=== PATIENT | male | born 1980 | race Caucasian/White ===

== ENCOUNTER 2016-05-04 07:24 | Outpatient (RCR) | payer BC, OTHER ==
[~2016-05-04 07:24] MED LIST: ASPI-808 PO; CEPH-507 PO
== END 2016-05-15 | disposition home or self-care (01) ==
LOC: WOUNDCARE 07:24
PROVIDERS: ATTEND Surgery
DX: L97.222 Non-pressure chronic ulcer of left calf with fat layer exposed (principal); I70.242 Atherosclerosis of native arteries of left leg with ulceration of calf; I87.032 Postthrombotic syndrome with ulcer and inflammation of left lower extremity; D68.51 Activated protein C resistance; L92.1 Necrobiosis lipoidica, not elsewhere classified; I87.2 Venous insufficiency (chronic) (peripheral); E11.622 Type 2 diabetes mellitus with other skin ulcer
CPT/HCPCS: 11042; 87070; 87075; 87205; 97597

== ENCOUNTER 2016-08-05 07:19 | Emergency (ER) | payer BC, OTHER ==
[~2016-08-05] VITALS: Ht 182.9 cm; Wt 186.9 kg
[2016-08-05] MEDS ORDERED: METF500T8 (07:31)
[2016-08-05] MEDS ORDERED: TACR100O2 (07:31)
[2016-08-05] MEDS ORDERED: LISI-556 (07:31)
--- NOTE | 2016-08-05 07:38 | ED General ---
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 DANIELS, ALSO HAS BEEN TO ISABELL JORDAN AT [facility]: DR. PLATT. Allergies and Home Medications Allergies Coded Allergies: Penicillins (Verified Allergy, Unknown, 02/13/11) Home Medications Aspirin 325 Mg Tablet, 325 MG PO DAILY, (Reported) Lisinopril 5 Mg Tablet, #30 (Reported) Meclizine HCl 25 Mg Tablet, 25-50 MG PO Q6H, #30 Prescribed by: JUDI CARDOZA on 08/05/16 1025 Metformin HCl 500 Mg Tab.er.24h, #120 (Reported) Ondansetron 4 Mg Tab.rapdis, 4 MG PO Q4H, #10 Prescribed by: JUDI CARDOZA on 08/05/16 1025 Tacrolimus 100 Gm Oint...g., #30 (Reported) Constitutional: see HPI, diaphoresis, dizziness EENTM: no symptoms reported Respiratory: see HPI, short of breath Cardiovascular: No chest pain, edema, No palpitations, No syncope, No vascular heart diseas Gastrointestinal: see HPI, No abdominal pain, nausea, No vomiting Genitourinary: no symptoms reported Musculoskeletal: see HPI Skin: see HPI Psychiatric/Neurological: See HPI, Headache, Denies Numbness, Denies Paresthesia Hematologic/Lymphatic: See HPI Immunological/Allergic: no symptoms reported Past Lmtnsmz-Tgnyds-Vcbeiy Hx Patient Social History Alcohol Use: Rarely Uses Recreational Drug Use: No Smoking Status: Never a Smoker Recent Foreign Travel: No Contact w/Someone Who Travel: No Recent Infectious Disease Expo: No Recent Hopitalizations: No Surgeries HX Surgeries: Yes (WISDOM TEETH REMOVED) Respiratory Hx Respiratory Disorders: No Cardiovascular Hx Cardiac Disorders: Yes Cardiac Disorders: Chronic Edema/Swelling, Deep Vein Thrombosis, High Cholesterol, Hypertension Neurological Hx Neurological Disorders: No Reproductive System Hx Reproductive Disorders: No Genitourinary Hx Genitourinary Disorders: No Gastrointestinal Hx Gastrointestinal Disorders: No Musculoskeletal Hx Musculoskeletal Disorders: No Endocrine Hx Endocrine Disorders: Yes (MORBID OBESITY) Endocrine Disorders: Diabetes, Non-Insulin dep HEENT HX ENT Disorders: Yes (FEVER BLISTERS, WISDOM TEETH REMOVED) Cancer Hx Cancer: No Psychosocial Hx Psychiatric Problems: Yes Behavioral Health Disorders: Anxiety Integumentary HX Skin/Integumentary Disorder: Yes (WOUNDS ON LEFT LOWER LEG-GOES TO WOUND CARE; FEVER BLISTERS) Blood Transfusions Hx Blood Disorders: Yes (FACTOR 5 LEIDEN--HX OF DVT LEFT LEG 2010) Physical Exam Vital Signs Vital Sign - Last 12Hours 08/05/16 07:20 Temp 96.5 Pulse 89 Resp 16 B/P (MAP) 149/76 Pulse Ox 96 Capillary Refill : Less Than 3 Seconds General Appearance: No Apparent Distress, Obese (MORBIDLY) HEENT: PERRL/EOMI Neck: Full Range of Motion, Normal Inspection, Non Tender, Supple, No Carotid Bruit, No JVD Respiratory: Normal Breath Sounds, No Accessory Muscle Use, No Respiratory Distress Cardiovascular: Regular Rate, Rhythm (WITH MULTIPLE PVC'S AND RUNS OF BIGEMINY) , No JVD, No Murmur Gastrointestinal: Non Tender, Soft Extremity: Normal Capillary Refill, Non Tender, Pedal Edema (1+ ON LEFT. LEFT LOWER LEG WITH DRESSINGS IN PLACE WHICH ARE CLEAN AND DRY) Neurologic/Psychiatric: Alert, Oriented x3, No Motor/Sensory Deficits, Normal Mood/Affect, multicraft operator II-XII Norm as Tested Skin: Normal Color, Warm/Dry, Other (LEFT LOWER LEG WOUNDS WITH DRESSING IN PLACE) Progress/Results/Core Measures Results/Orders Lab Results Laboratory Tests Test 08/05/16 07:33 08/05/16 07:35 08/05/16 08:27 Range/Units Glucometer 100 70-110 MG/DL White Blood Count 11.6 H 4.3-11.0 10^3/uL Red Blood Count 4.48 4.35-5.85 10^6/uL Hemoglobin 13.4 13.3-17.7 G/DL Hematocrit 42 40-54 % Mean Corpuscular Volume 93 80-99 FL Mean Corpuscular Hemoglobin 30 25-34 PG Mean Corpuscular Hemoglobin Concent 32 32-36 G/DL Red Cell Distribution Width 13.9 10.0-14.5 % Platelet Count 262 130-400 10^3/uL Mean Platelet Volume 11.0 H 7.4-10.4 FL Neutrophils (%) (Auto) 67 42-75 % Lymphocytes (%) (Auto) 16 12-44 % Monocytes (%) (Auto) 10 0-12 % Eosinophils (%) (Auto) 7 0-10 % Basophils (%) (Auto) 0 0-10 % Neutrophils # (Auto) 7.7 1.8-7.8 X 10^3 Lymphocytes # (Auto) 1.9 1.0-4.0 X 10^3 Monocytes # (Auto) 1.2 H 0.0-1.0 X 10^3 Eosinophils # (Auto) 0.8 H 0.0-0.3 10^3/uL Basophils # (Auto) 0.0 0.0-0.1 10^3/uL Prothrombin Time 12.4 12.2-14.7 SEC INR Comment 1.0 0.8-1.4 Activated Partial Thromboplast Time 26 24-35 SEC Sodium Level 141 135-145 MMOL/L Potassium Level 4.2 3.6-5.0 MMOL/L Chloride Level 109 H 98-107 MMOL/L Carbon Dioxide Level 23 21-32 MMOL/L Anion Gap 9 5-14 MMOL/L Blood Urea Nitrogen 10 7-18 MG/DL Creatinine 0.85 0.60-1.30 MG/DL Estimat Glomerular Filtration Rate > 60 BUN/Creatinine Ratio 12 Glucose Level 106 H 70-105 MG/DL Calcium Level 9.3 8.5-10.1 MG/DL Magnesium Level 1.6 L 1.8-2.4 MG/DL Total Bilirubin 0.4 0.1-1.0 MG/DL Aspartate Amino Transf (AST/SGOT) 17 5-34 U/L Alanine Aminotransferase (ALT/SGPT) 25 0-55 U/L Alkaline Phosphatase 52 40-136 U/L Total Creatine Kinase 63 30-200 U/L Creatine Kinase MB 1.1 <6.6 NG/ML Troponin I < 0.30 <0.30 NG/ML B-Type Natriuretic Peptide 18.3 <100.0 PG/ML Total Protein 6.7 6.4-8.2 G/DL Albumin 3.5 3.2-4.5 G/DL Lipase 38 8-78 U/L TSH [place] Testing 2.78 0.35-4.94 UIU/ML Urine Color YELLOW Urine Clarity CLEAR Urine pH 5 5-9 Urine Specific [place] 1.025 H 1.016-1.022 Urine Protein 1+ H NEGATIVE Urine Glucose (UA) NEGATIVE NEGATIVE Urine Ketones NEGATIVE NEGATIVE Urine Nitrite NEGATIVE NEGATIVE Urine Bilirubin 1+ H NEGATIVE Urine Urobilinogen 1 NORMAL MG/DL Urine Leukocyte Esterase 1+ H NEGATIVE Urine RBC (Auto) NEGATIVE NEGATIVE Urine RBC NONE /HPF Urine WBC NONE /HPF Urine Squamous Epithelial Cells RARE /HPF Urine Crystals PRESENT H /LPF Urine Calcium Oxalate Crystals MODERATE H /LPF Urine Bacteria NEGATIVE /HPF Urine Casts NONE /LPF Urine Mucus SMALL H /LPF Urine Culture Indicated NO My Orders Orders - JUDI CARDOZA DO Accucheck Stat ONCE (08/05/16 07:32) Saline Lock/Iv-Start (08/05/16 07:32) Ekg Tracing (08/05/16 07:32) Monitor-Rhythm Ecg Trace Only (08/05/16 07:32) Ct Head Wo (08/05/16 07:32) BNP (08/05/16 07:32) Cbc With Automated Diff (08/05/16 07:32) Comprehensive Metabolic Panel (08/05/16 07:32) Creatine Kinase (08/05/16 07:32) Creatine Kinase Mb (08/05/16 07:32) Lipase (08/05/16 07:32) Magnesium (08/05/16 07:32) Protime With Inr (08/05/16 07:32) Partial Thromboplastin Time (08/05/16 07:32) Thyroid Analyzer (08/05/16 07:32) Troponin I (08/05/16 07:32) Ua Culture If Indicated (08/05/16 07:32) Chest 1 View, Ap/Pa Only (08/05/16 07:32) Ondansetron Injection (Zofran Injectio (08/05/16 07:45) Ct Angio Chest W (08/05/16 08:23) Iohexol Injection (Omnipaque 350 Mg/Ml 1 (08/05/16 08:30) Ns (Ivpb) (Sodium Chloride 0.9% Ivpb Bag (08/05/16 08:30) Magnesium Oxide Tablet (Mag Ox Tablet) (08/05/16 09:45) Meclizine Tablet (Antivert Tablet) (08/05/16 09:45) Orthostatic Vital Signs (08/05/16 10:22) Medications Given in ED Current Medications Medications Dose Ordered Sig/Vicki Route Start Time Stop Time Status Last Admin Dose Admin Iohexol 125 ml ONCE ONCE IV 08/05/16 08:30 08/05/16 08:47 DC 08/05/16 08:45 125 ML Magnesium Oxide 400 mg ONCE ONCE PO 08/05/16 09:45 08/05/16 09:46 DC 08/05/16 10:20 400 MG Meclizine HCl 50 mg ONCE ONCE PO 08/05/16 09:45 08/05/16 09:46 DC 08/05/16 10:05 50 MG Ondansetron HCl 4 mg ONCE ONCE IVP 08/05/16 07:45 08/05/16 07:46 DC 08/05/16 07:42 4 MG Sodium Chloride 80 ml ONCE ONCE IV 08/05/16 08:30 08/05/16 08:47 DC 08/05/16 08:46 80 ML Vital Signs/I&O Vital Sign - Last 12Hours 08/05/16 07:20 Temp 96.5 Pulse 89 Resp 16 B/P (MAP) 149/76 Pulse Ox 96 Blood Pressure Mean: 100 Progress Note : Progress Note UNEVENTFUL ER STAY ORTHOSTATICS PRIOR TO DISMISSAL MILDLY ABNORMAL , BUT PT ASYMPTOMATIC AND ABLE TO AMBULATE AROUND ER WITHOUT ANY DIZZINESS OR DIFFICULTY ECG Initial ECG Impression Time: 07:29 Initial ECG Rate: 92 Initial ECG Rhythm: Normal Sinus Initial ECG Impression: Normal Initial ECG Comparisson: No Previous ECG Available Diagnostic Imaging Comments CXR--NO ACUTE PROCESS, PER RADIOLOGIST REPORT @ 0915 CT CHEST ANGIOGRAM--NORMAL. NO P.E. PER RADIOLOGIST REPORT @ 0942 Reviewed: Reviewed by Me Departure Communication Progress Notes Impression Impression: Primary Impression: Vertigo Additional Impressions: Hypomagnesemia NIDDM HTN (hypertension) Disposition: 01 HOME, SELF-CARE Condition: Improved Departure-Patient Inst. Referrals: JUDI DANIELS MD (PCP/Family) Primary Care Physician [facility] Patient Instructions: Vertigo (a Type of Dizziness) (DC) Add. Discharge Instructions: LOTS OF CLEAR LIQUIDS SLOW POSITION CHANGES FOLLOW UP WITH YOUR DR THIS WEEK FOR FURTHER CARE All discharge instructions reviewed with patient and/or family. Voiced understanding. Scripts Ondansetron (Zofran Odt) 4 Mg Tab.rapdis 4 MG PO Q4H for Nausea/Vomiting, #10 TAB Prov: JUDI CARDOZA DO 08/05/16 Meclizine HCl (Meclizine HCl) 25 Mg Tablet 25-50 MG PO Q6H for Dizziness, #30 TAB Prov: JUDI CARDOZA DO 08/05/16 JUDI CARDOZA DO Aug 05, 2016 07:38
[2016-08-05 07:42] LABS: BASOPHILS % (AUTO) 0 % (0-10); EOSINOPHILS # (AUTO) 0.8 10^3/uL (0.0-0.3); EOSINOPHILS % (AUTO) 7 % (0-10); LYMPHOCYTES # (AUTO) 1.9 X 10^3 (1.0-4.0); LYMPHOCYTES % (AUTO) 16 % (12-44); MEAN CORPUSCULAR HEMOGLOBIN 30 PG (25-34); MEAN CORPUSCULAR HGB CONC 32 G/DL (32-36); MEAN CORPUSCULAR VOLUME 93 FL (80-99); MONOCYTES # (AUTO) 1.2 X 10^3 (0.0-1.0); MONOCYTES % (AUTO) 10 % (0-12); NEUTROPHILS # (AUTO) 7.7 X 10^3 (1.8-7.8); NEUTROPHILS % (AUTO) 67 % (42-75); PLATELET COUNT 262 10^3/uL (130-400); RED BLOOD COUNT 4.48 10^6/uL (4.35-5.85); RED CELL DISTRIBUTION WIDTH 13.9 % (10.0-14.5); WHITE BLOOD COUNT 11.6 10^3/uL (4.3-11.0)
[2016-08-05] MEDS ORDERED: ONDANSETRON 4 MG/2 ML (SDV) Z0FRAN IVP ONE (07:45)
[2016-08-05 07:52] LABS: PROTHROMBIN TIME PATIENT 12.4 SEC (12.2-14.7)
[2016-08-05 08:02] LABS: SODIUM 141 MMOL/L (135-145)
[2016-08-05 08:03] LABS: ALANINE AMINOTRANSFERASE 25 U/L (0-55); ALBUMIN 3.5 G/DL (3.2-4.5); ANION GAP 9 MMOL/L (5-14); ASPARTATE AMINO TRANSFERASE 17 U/L (5-34); BILIRUBIN,TOTAL 0.4 MG/DL (0.1-1.0); BLOOD UREA NITROGEN 10 MG/DL (7-18); BUN/CREATININE RATIO 12; CALCIUM 9.3 MG/DL (8.5-10.1); CARBON DIOXIDE 23 MMOL/L (21-32); CHLORIDE 109 MMOL/L (98-107); CREATINE KINASE 63 U/L (30-200); CREATININE SERUM 0.85 MG/DL (0.60-1.30); GFR ESTIMATED > 60; GLUCOSE 106 MG/DL (70-105); LIPASE 38 U/L (8-78); MAGNESIUM 1.6 MG/DL (1.8-2.4); POTASSIUM 4.2 MMOL/L (3.6-5.0); TOTAL PROTEIN 6.7 G/DL (6.4-8.2)
[2016-08-05 08:24] LABS: TROPONIN I < 0.30 NG/ML (<0.30)
[2016-08-05] MEDS ORDERED: NS 100 ML (IVPB) BAG IV ONE (08:30)
[2016-08-05] MEDS ORDERED: IOHEXOL 350 MG/ML 150 ML (OMNIPAQUE 350) VIAL IV ONE (08:30)
[2016-08-05 08:32] LABS: KETONES,URINE NEGATIVE (NEGATIVE); LEUKOCYTE ESTERASE ,URINE 1+ (NEGATIVE); NITRITE,URINE NEGATIVE (NEGATIVE); PH,URINE 5 (5-9); PROTEIN,URINE 1+ (NEGATIVE); UROBILINOGEN,URINE 1 MG/DL (NORMAL)
[2016-08-05 08:42] LABS: CALCIUM OXALATE CRYSTALS,UR MODERATE /LPF; SQUAMOUS EPITHELIAL CELL,UR RARE /HPF
[2016-08-05 08:44] LABS: BILIRUBIN,URINE 1+ (NEGATIVE)
--- NOTE | 2016-08-05 08:50 | Diagnostic Imaging Report ---
PROCEDURE: CT head without contrast. TECHNIQUE: Multiple contiguous axial images were obtained through the brain without the use of intravenous contrast. INDICATION: Dizziness. FINDINGS: The ventricles appear normal. Cortical gyral pattern is normal. There is no intracranial hemorrhage or mass effect. No extra-axial fluid collection. Basal cisterns are clear. Mastoid air cells and paranasal sinuses are well-aerated. IMPRESSION: Negative CT head without contrast. Dictated by: Dictated on workstation # [id number]
--- NOTE | 2016-08-05 08:58 | Diagnostic Imaging Report ---
INDICATION: Shortness of breath. FINDINGS: Portable exam shows lungs to be clear. The heart is not enlarged. No evidence of pulmonary edema. No hilar adenopathy. No pneumothorax or pleural effusion. IMPRESSION: Normal portable chest. Dictated by: Dictated on workstation # [id number]
--- NOTE | 2016-08-05 09:30 | Diagnostic Imaging Report ---
PROCEDURE: CT angiography of the chest with contrast. TECHNIQUE: Multiple contiguous axial images were obtained through the chest after uneventful bolus administration of intravenous contrast. Reconstructed CTA MIP acquisitions were also performed. INDICATION: Dizziness. Short of air. Nausea The lungs are clear. There is no effusion or pneumothorax. There is no mediastinal mass or hemorrhage. There is no aortic dissection. No pulmonary embolus is seen. IMPRESSION: No acute abnormality is seen. No pulmonary embolus is seen. Dictated by: Dictated on workstation # [id number]
[2016-08-05] MEDS ORDERED: MAGNESIUM OXIDE (MAG-OX)400 MG TAB PO ONE (09:45)
[2016-08-05] MEDS ORDERED: MECLIZINE 25 MG (ANTIVERT) TAB PO ONE (09:45)
[2016-08-05] MEDS ORDERED: MECL-106 PO (10:25)
[2016-08-05] MEDS ORDERED: ONDA4TAB8 PO (10:25)
[2016-08-05 10:47] VITALS: BP 130/76
--- OUTSIDE RECORDS SUMMARY | 2016-08-21 12:58 | XMS REPORT ---
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 62066887 Problem Leg ulcer, left L97.929 Active 97284168 Problem Prediabetes R73.09 Active 8450584 Assessment Chronic stasis dermatitis I83.10 Jan, Active 94186922 Problem Chronic stasis dermatitis I83.10 Active 50458217 Problem Factor V Leiden D68.51 Active 922377186 ALLERGIES Substance Reaction Event Type Date Status Penicillin G Benzathine hives Drug Allergy Jan, Active SOCIAL HISTORY No smoking Hx information available PLAN OF CARE VITAL SIGNS Height 72 in 2016-02-01 Weight 412.7 lbs 2016-02-01 Heart Rate 84 bpm 2016-02-01 Respiratory Rate 20 2016-02-01 BMI 55.97 kg/m2 2016-02-01 Blood pressure systolic 132 mmHg 2016-02-01 Blood pressure diastolic 84 mmHg 2016-02-01 MEDICATIONS Medication Instructions Dosage Frequency Start Date End Date Duration Status PredniSONE 5 MG Orally Once a day 1 tablet 24h Active Lisinopril 5 MG Orally Once a day 1 tablet 24h Active Minocycline HCl Active Triamcinolone Acetonide 0.1 % Externally Twice a day to redness on lower ext 1 application to affected area Mar, 14 days Active Tacrolimus 0.1 % Externally twice a day 1 application to affected area 12h Active Bactrim Active PrednisoLONE 5 mg Orally Once a day 4 tablets 24h Active MetFORMIN HCl ER 500 MG Orally 2 times a day 2 tablets 12h Active Aspirin 325 MG Orally Once a day 1 tablet 24h Active RESULTS Name Result Date Reference Range A1C (IN HOUSE) 2016-02-01 A1C IN HOUSE 7.1 4.3 - 5.6 % Previous A1c 5.8 Lot [id number] Exp date LIPID PANEL 2016-02-01 Cholesterol, Total 261 100-199 Triglycerides 141 0-149 HDL Cholesterol 54 >39 VLDL Cholesterol Isai 28 5-40 LDL Cholesterol Calc 179 0-99 Comment: CMP 2016-02-01 Glucose, Serum 95 65-99 BUN 12 6-20 Creatinine, Serum 1.14 0.76-1.27 eGFR If NonAfricn Am 83 >59 eGFR If Africn Am 96 >59 BUN/Creatinine Ratio 11 8-19 Sodium, Serum 144 134-144 Potassium, Serum 4.0 3.5-5.2 Chloride, Serum 99 97-108 Carbon Dioxide, Total 25 18-29 Calcium, Serum 9.2 8.7-10.2 Protein, Total, Serum 6.9 6.0-8.5 Albumin, Serum 3.7 3.5-5.5 Globulin, Total 3.2 1.5-4.5 A/G Ratio 1.2 1.1-2.5 Bilirubin, Total 0.4 0.0-1.2 Alkaline Phosphatase, S 58 39-117 AST (SGOT) 19 0-40 ALT (SGPT) 34 0-44 PROCEDURES Procedure Date Ordered Related Diagnosis Body Site GLYCATED HEMOGLOBIN TEST Feb 01, 2016 COMPREHEN METABOLIC PANEL Feb 01, 2016 VENIPUNCT, ROUTINE* Feb 01, 2016 LIPID PANEL Feb 01, 2016 Office Visit, Est Pt., Level 4 Feb 01, 2016 IMMUNIZATIONS No Known Immunizations
--- OUTSIDE RECORDS SUMMARY | 2016-08-21 12:58 | XMS REPORT ---
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
--- OUTSIDE RECORDS SUMMARY | 2016-08-21 12:58 | XMS REPORT ---
Author Author AMELIA JORDAN [facility] e[employer] Address Unknown Phone Unavailable Care Team Providers Care Induction Brazer Name Role Phone AMELIA JORDAN CP Unavailable Allergies, Adverse Reactions, Alerts Substance Reaction Event Type Penicillin G Benzathine hives Drug Allergy Problems Problem Type Condition Code Onset Dates Condition Status Problem Factor V Leiden D68.51 Active Problem Prediabetes R73.09 Active Problem Chronic stasis dermatitis I83.10 Active Assessment Factor V Leiden D68.51 Active Assessment Prediabetes R73.09 Active Assessment Chronic stasis dermatitis I83.10 Active Medications Medication Code System Code Instructions Start Date End Date Status Dosage Triamcinolone Acetonide [facility] [address]-28 0.1 % Externally Twice a day to redness on lower ext Mar 29, 2015 1 application to affected area Aspirin [facility] [address]-67 325 MG Orally Once a day 1 tablet MetFORMIN HCl ER [facility] [address]-62 500 MG Orally 2 times a day Mar 30, 2015 1 tablet with meals Lisinopril [facility] [address]-32 5 MG Orally Once a day Apr 14, 2015 1 tablet Procedures Procedure Coding System Code Date Office Visit, Est Pt., Level 4 CPT-4 31753 Apr 14, 2015 MICROALBUMIN, SEMIQUANT CPT-4 78563 Apr 14, 2015 Vital Signs Date/Time: Apr 14, 2015 Temperature 97.7 F Weight 398.7 lbs Height 72 in BMI 54.07 Index Blood Pressure Diastolic 82 mmHg Blood Pressure Systolic 136 mmHg Cardiac Monitoring Heart Rate 84 bpm Results No Known Results Summary Purpose [employer]ClinicalWorks Submission
--- OUTSIDE RECORDS SUMMARY | 2016-08-21 12:58 | XMS REPORT ---
Author Author AMELIA JORDAN [facility] e[employer] Address Unknown Phone Unavailable Care Team Providers Care Field Captain Name Role Phone AMELIA JORDAN CP Unavailable [...] Instructions Start Date End Date Status Dosage Silvadene [facility][NOTE 3] [address]-58 1 % Externally Once a day Apr 28, 2015 1 application to affected area MetFORMIN HCl ER [facility][NOTE 3] [address]-20 500 MG Orally 2 times a day 1 tablet with meals Lisinopril [facility][NOTE 3] [address]-30 5 MG Orally Once a day 1 tablet Aspirin [facility][NOTE 3] [address]-60 325 MG Orally Once a day 1 tablet Triamcinolone Acetonide [facility][NOTE 3] [address]-67 0.1 % Externally Twice a day to redness on lower ext Mar 29, 2015 1 application to affected area Procedures Procedure Coding System Code Date Office Visit, Est Pt., Level 3 CPT-4 79819 Apr 28, 2015 VENIPUNCT, ROUTINE* CPT-4 99468 Apr 28, 2015 COMPREHEN METABOLIC PANEL CPT-4 14497 Apr 28, 2015 Vital Signs Date/Time: Apr 28, 2015 Temperature 98 F Weight 389.9 lbs Height 72 in BMI 52.87 Index Blood Pressure Diastolic 68 mmHg Blood Pressure Systolic 122 mmHg Cardiac Monitoring Heart Rate 84 bpm Results Name Result Date Reference Range Unit Abnormality Flag ROUTINE VENIPUNCTURE Summary Purpose eClinicalWorks Submission
--- OUTSIDE RECORDS SUMMARY | 2016-08-21 12:58 | XMS REPORT ---
Author Author LULI BEASLEY [facility] e[employer] Address Unknown Phone Unavailable Care Team Providers Care Linoleum Floor Installer Name Role Phone LULI BEASLEY Unavailable Allergies No Known Allergies Problems Problem Type Condition ICD-9 Code Onset Dates Condition Status Assessment Dental examination V72.2 Active Medications No Known Medications Procedures Procedure Coding System Code Date EXTRAC ERUPTED TOOTH/EXPOSED ROOT CPT-4 D7140 Jan 05, 2015 Results No Known Results Summary Purpose [employer]Works Submission
--- OUTSIDE RECORDS SUMMARY | 2016-08-21 12:58 | XMS REPORT ---
Author Author TOMÁS RENDON [facility] e[employer] Address Unknown Phone Unavailable Care Team Providers Care Small Business Director Name Role Phone TOMÁS RENDON Unavailable Allergies No Known Allergies Problems Problem Type Condition Code Onset Dates Condition Status Assessment Prediabetes R73.09 Active Problem Prediabetes R73.09 Active Medications Medication Code System Code Instructions Start Date End Date Status Dosage MetFORMIN HCl ER [facility] [address]-90 500 MG Orally 2 times a day Mar 30, 2015 1 tablet with meals Results No Known Results Summary Purpose [employer]ClinicalWorks Submission
--- OUTSIDE RECORDS SUMMARY | 2016-08-21 12:59 | XMS REPORT ---
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
--- OUTSIDE RECORDS SUMMARY | 2016-08-21 12:59 | XMS REPORT ---
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
--- OUTSIDE RECORDS SUMMARY | 2016-08-21 12:59 | XMS REPORT ---
Author Author LULI BEASLEY Organization [employer] Address Unknown Phone Unavailable Care Team Providers Care Airport Traffic Controller Name Role Phone LULI BEASLEY CP Unavailable Allergies No Known Allergies Problems Problem Type Condition ICD-9 Code Onset Dates Condition Status Assessment Dental examination V72.2 Active Medications No Known Medications Procedures Procedure Coding System Code Date INTRAORL-PERIAPICAL 1 FILM 69992 CPT-4 D0220 Dec 22, 2014 BITEWING - SINGLE FILM CPT-4 D0270 Dec 22, 2014 LTD ORAL EVALUATION - PROBLEM FOCUS CPT-4 D0140 Dec 22, 2014 Results No Known Results Summary Purpose eClinicalWorks Submission
--- OUTSIDE RECORDS SUMMARY | 2016-08-21 13:00 | XMS REPORT ---
Author Author CINDY PARKS Organization [employer] Address Unknown Phone Unavailable Care Team Providers Care Visual And Stock Associate Name Role Phone CINDY PARKS CP Unavailable Allergies No Known Allergies Problems Problem Type Condition Code Onset Dates Condition Status Problem Prediabetes R73.09 Active Problem Chronic stasis dermatitis I83.10 Active Problem Factor V Leiden D68.51 Active Assessment Encounter for immunization Z23 Active Problem Chest heaviness R07.89 Active Problem Dizziness R42 Active Problem New daily persistent headache G44.52 Active Problem Type 2 diabetes mellitus with diabetic dermatitis, 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 Problem Leg ulcer, left L97.929 Active Problem Mixed hyperlipidemia E78.2 Active Problem PVD (peripheral vascular disease) I73.9 Active Medications No Known Medications Procedures Procedure Coding System Code Date TDAP (BOOSTRIX) CPT-4 60846 Feb 27, 2016 FLUARIX QUAD P-FREE 3 AND UP .50 2015 CPT-4 54829 Feb 27, 2016 HEP A (ADULT) CPT-4 31332 Feb 27, 2016 IMMUNIZATION ADMIN, EACH ADD (please include units) CPT-4 03852 Feb 27, 2016 SINGLE IMMUNIZATION ADMIN CPT-4 77444 Feb 27, 2016 Results No Known Results Immunizations Vaccine Administration Date HEP A (ADULT) Feb 27, 2016 TDAP (BOOSTRIX) Feb 27, 2016 FLUARIX QUAD P-FREE 3 AND UP .50 2015Feb 27, 2016 Summary Purpose eClinicalWorks Submission
--- OUTSIDE RECORDS SUMMARY | 2016-08-21 13:00 | XMS REPORT ---
Author Author TOMÁS RENDON [facility] eClinicalWorks Address Unknown Phone Unavailable Care Team Providers Care Stretcher Operator Name Role Phone TOMÁS RENDON CP Unavailable Allergies, Adverse Reactions, Alerts Substance Reaction Event Type Penicillin G Benzathine hives Drug Allergy Problems Problem Type Condition Code Onset Dates Condition Status Assessment Factor V Leiden D68.51 Active Assessment Edema of left lower extremity R60.0 Active Medications Medication Code System Code Instructions Start Date End Date Status Dosage Bactroban [facility] [address]-92 2 % Externally 2 times a day Mar 29, 2015 Apr 12, 2015 1 application to affected area Triamcinolone Acetonide [facility] [address]-56 0.1 % Externally Twice a day to redness on lower ext Mar 29, 2015 1 application to affected area Lasix [facility] [address]-81 20 MG Orally Once a day Mar 29, 2015 1 tablet Bactrim DS [facility] [address]-26 800-160 MG Orally 2 times a day Mar 29, 2015 Apr 08, 2015 1 tablet Procedures Procedure Coding System Code Date COMPREHEN METABOLIC PANEL CPT-4 49169 Mar 29, 2015 GLYCATED HEMOGLOBIN TEST CPT-4 84683 Mar 29, 2015 COMPLETE CBC W/AUTO DIFF WBC CPT-4 01310 Mar 29, 2015 Office Visit, New Pt., Level 3 CPT-4 28333 Mar 29, 2015 VENIPUNCT, ROUTINE* CPT-4 46267 Mar 29, 2015 Vital Signs Date/Time: Mar 29, 2015 Cardiac Monitoring Heart Rate 92 bpm Temperature 98.6 F Weight 395.7 lbs Blood Pressure Diastolic 86 mmHg Blood Pressure Systolic 132 mmHg Results Name Result Date Reference Range Unit Abnormality Flag ROUTINE VENIPUNCTURE A1C Summary Purpose eClinicalWorks Submission
--- OUTSIDE RECORDS SUMMARY | 2016-08-21 13:00 | XMS REPORT ---
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
--- OUTSIDE RECORDS SUMMARY | 2016-08-21 13:00 | XMS REPORT | Continuity of Care Document ---
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 KISHAN PLATT MD Ot I87.2 VENOUS INSUFFICIENCY (CHRONIC) (PERIPHER KISHAN PLATT MD Ot 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, 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 KISHAN PLATT MD Ot L97.222 NON-PRESSURE CHRONIC ULCER OF LEFT CALF 02/19/2011 Ot 278.01 MORBID OBESITY 02/19/2011 Ot 451.11 PHLEBITIS THROMBOPHLEBITIS,FEMORAL VEIN( 02/19/2011 Ot 451.19 DEEP PHLEBITIS-LEG NEC 02/19/2011 Ot 453.41 ACUTE VENOUS EMBOLISM THROMBOSIS DEEP 02/19/2011 Ot V04.81 ND FOR PROPHYLACTIC VACCIN AND INOCULATI 02/19/2011 Ot V18.3 FAM HX-BLOOD DISORD NEC 02/19/2011 Ot V85.41 BODY MASS INDEX 40.0-44.9, ADULT 05/22/2011 Ot 451.11 PHLEBITIS THROMBOPHLEBITIS,FEMORAL VEIN( 08/29/2011 Ot 451.11 PHLEBITIS THROMBOPHLEBITIS,FEMORAL VEIN( 08/04/2014 Ot 782.3 08/19/2014 ITALO RYAN MD Ot 729.5 08/19/2014 ITALO RYAN MD Ot V12.51 09/13/2014 LINDSEY RYAN MDHLEEN M Ot 729.5 09/13/2014 CONNOR WHITMAN, ITALO Giraldo Ot V12.51 09/13/2014 Ot 782.3 09/13/2014 CONNOR WHITMAN, ITALO Giraldo Ot 729.5 09/13/2014 CONNOR WHITMAN, ITALO Giraldo Ot V12.51 10/26/2014 Ot 782.3 10/26/2014 CONNOR WHITMAN, ITALO Giraldo Ot 729.5 10/26/2014 CONNOR WHITMAN, ITALO Giraldo Ot V12.51 11/04/2014 CONNOR WHITMAN, ITALO Giraldo Ot 729.5 11/04/2014 CONNOR WHITMAN, ITALO Giraldo Ot V12.51 02/12/2015 MONICA WHITMAN, CHRIS Melendrez Ot D68.2 HEREDITARY DEFICIENCY OF OTHER CLOTTING 02/12/2015 CHRIS ANDERSON MD Ot L03.116 CELLULITIS OF LEFT LOWER LIMB 02/12/2015 CHRIS ANDERSON MD Ot M79.89 OTHER SPECIFIED SOFT TISSUE DISORDERS 02/12/2015 MONICA WHITMAN, CHRIS Melendrez Ot Z86.718 PERSONAL HISTORY OF OTHER VENOUS THROMBO 02/13/2015 Ot 782.3 02/13/2015 CONNOR WHITMAN, ITALO Giraldo Ot 729.5 02/13/2015 CONNOR WHITMAN, ITALO Giraldo Ot V12.51 07/27/2015 Ot 782.3 07/27/2015 CONNOR WHITMAN, ITALO Giraldo Ot 729.5 07/27/2015 ITALO RYAN MD Ot V12.51 08/01/2015 GIULIA WHITMAN, KISHAN Dickey Ot D68.51 08/01/2015 GIULIA WHITMAN, KISHAN Dickey Ot I70.242 08/01/2015 GIULIA WHITMAN, KISHAN Dickey Ot I87.032 08/01/2015 GIULIA WHITMAN, KISHAN Dickey Ot L97.222 08/09/2015 GIULIA WHITMAN, KISHAN Dickey Ot D68.51 08/09/2015 GIULIA WHITMAN, KISHAN Dickey Ot I70.242 08/09/2015 GIULIA WHITMAN, KISHAN Dickey Ot I87.032 08/09/2015 GIULIA WHITMAN, KISHAN Dickey Ot L97.222 08/10/2015 GIULIA WHITMAN, KISHAN Dickey Ot D68.51 08/10/2015 GIULIA WHITMAN, KISHAN Dickey Ot I70.242 08/10/2015 KISHAN PLATT MD Ot I87.032 08/10/2015 KISHAN PLATT MD Ot L97.222 08/24/2015 KISHAN PLATT MD Ot D68.51 08/24/2015 GIULIA WHITMAN, KISHAN Dickey Ot I70.242 08/24/2015 KISHAN PLATT MD Ot I87.032 08/24/2015 KISHAN PLATT MD Ot L97.222 08/24/2015 KISHAN PLATT MD Ot D68.51 08/24/2015 KISHAN PLATT MD Ot I70.242 08/24/2015 KISHAN PLATT MD Ot I87.032 08/24/2015 KISHAN PLATT MD Ot L97.222 09/16/2015 KISHAN PLATT MD, Ot D68.51 ACTIVATED PROTEIN C RESISTANCE 09/16/2015 KISHAN PLATT MD Ot 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 [facility] 09/16/2015 KISHAN PLATT MD Ot 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 09/16/2015 KISHAN PLATT MD Ot 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, 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 09/16/2015 KISHAN PLATT MD Ot L97.222 NON-PRESSURE CHRONIC ULCER OF LEFT CALF 09/19/2015 KISHAN PLATT MD Ot D68.51 ACTIVATED PROTEIN C RESISTANCE 09/19/2015 KISHAN PLATT MD Ot 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 [facility] 09/19/2015 KISHAN PLATT MD, Ot 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 09/19/2015 KISHAN PLATT MD Ot 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, 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 09/19/2015 KISHAN PLATT MD Ot L97.222 NON-PRESSURE CHRONIC ULCER OF LEFT CALF 09/30/2015 KISHAN PLATT MD Ot D68.51 ACTIVATED PROTEIN C RESISTANCE 09/30/2015 KISHAN PLATT MD Ot 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 [facility] 09/30/2015 KISHAN PLATT MD Ot 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 09/30/2015 KISHAN PLATT MD Ot L97.222 NON-PRESSURE CHRONIC ULCER OF LEFT CALF 10/06/2015 KISHAN PLATT MD Ot D68.51 ACTIVATED PROTEIN C RESISTANCE 10/06/2015 KISHAN PLATT MD Ot 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 [facility] 10/06/2015 KISHAN PLATT MD, Ot 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 10/06/2015 KISHAN PLATT MD Ot 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, 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 10/06/2015 KISHAN PLATT MD, Ot L97.222 NON-PRESSURE CHRONIC ULCER OF LEFT CALF 10/25/2015 KISHAN PLATT MD, Ot D68.51 ACTIVATED PROTEIN C RESISTANCE 10/25/2015 KISHAN PLATT MD Ot 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 [facility] 10/25/2015 KISHAN PLATT MD, Ot 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 10/25/2015 KISHAN PLATT MD Ot L97.222 NON-PRESSURE CHRONIC ULCER OF LEFT CALF 10/31/2015 KISHAN PLATT MD Ot D68.51 ACTIVATED PROTEIN C RESISTANCE 10/31/2015 KISHAN PLATT MD Ot 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 [facility] 10/31/2015 KISHAN PLATT MD Ot 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 10/31/2015 KISHAN PLATT MD Ot L97.222 NON-PRESSURE CHRONIC ULCER OF LEFT CALF 11/01/2015 KISHAN PLATT MD, Ot D68.51 ACTIVATED PROTEIN C RESISTANCE 11/01/2015 KISHAN PLATT MD Ot 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 [facility] 11/01/2015 KISHAN PLATT MD Ot 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 11/01/2015 KISHAN PLATT MD Ot L97.222 NON-PRESSURE CHRONIC ULCER OF LEFT CALF 11/04/2015 KISHAN PLATT MD, Ot 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 11/09/2015 KISHAN PLATT MD Ot 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 11/24/2015 RUDY JOHNSON MD Ot E66.9 OBESITY, UNSPECIFIED 11/24/2015 RUDY JOHNSON MD Ot I10 ESSENTIAL (PRIMARY) HYPERTENSION 11/24/2015 RUDY JOHNSON MD Ot L97.201 NON-PRS CHRONIC ULCER OF UNSP CALF LIMIT 11/25/2015 RUDY JOHNSON MD Ot E66.9 OBESITY, UNSPECIFIED 11/25/2015 RUDY JOHNSON MD Ot I10 ESSENTIAL (PRIMARY) HYPERTENSION 11/25/2015 RUDY JOHNSON MD Ot I82.409 ACUTE EMBOLISM AND THOMBOS UNSP DEEP VN 11/25/2015 RUDY JOHNSON MD Ot L97.201 NON-PRS CHRONIC ULCER OF UNSP CALF LIMIT 12/02/2015 KISHAN PLATT MD, Ot 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 12/08/2015 RUDY JOHNSON MD Ot E66.9 OBESITY, UNSPECIFIED 12/08/2015 RUDY JOHNSON MD Ot I10 ESSENTIAL (PRIMARY) HYPERTENSION 12/08/2015 RUDY JOHNSON MD Ot I82.409 ACUTE EMBOLISM AND THOMBOS UNSP DEEP VN 12/08/2015 RUDY JOHNSON MD Ot L97.201 NON-PRS CHRONIC ULCER OF UNSP CALF LIMIT 12/13/2015 KISHAN PLATT MD Ot D68.51 ACTIVATED PROTEIN C RESISTANCE 12/13/2015 KISHAN PLATT MD Ot 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 ULC 12/13/2015 KISHAN PLATT MD, Ot 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 12/13/2015 KISHAN PLATT MD Ot L97.222 NON-PRESSURE CHRONIC ULCER OF LEFT CALF 12/15/2015 KISHAN PLATT MD, Ot D68.51 ACTIVATED PROTEIN C RESISTANCE 12/15/2015 KISHAN PLATT MD, Ot 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 12/15/2015 KISHAN PLATT MD Ot 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, 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 12/15/2015 KISHAN PLATT MD Ot L97.222 NON-PRESSURE CHRONIC ULCER OF LEFT CALF 12/15/2015 KISHAN PLATT MD, Ot D68.51 ACTIVATED PROTEIN C RESISTANCE 12/15/2015 KISHAN PLATT MD, Ot 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 12/15/2015 KISHAN PLATT MD, Ot 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, 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 12/15/2015 KISHAN PLATT MD Ot L97.222 NON-PRESSURE CHRONIC ULCER OF LEFT CALF 12/15/2015 KISHAN PLATT MD, Ot D68.51 ACTIVATED PROTEIN C RESISTANCE 12/15/2015 KISHAN PLATT MD, Ot 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 12/15/2015 KISHAN PLATT MD Ot 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, 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 12/15/2015 KISHAN PLATT MD, Ot L97.222 NON-PRESSURE CHRONIC ULCER OF LEFT CALF 12/23/2015 KISHAN PLATT MD, Ot D68.51 ACTIVATED PROTEIN C RESISTANCE 12/23/2015 KISHAN PLATT MD, Ot 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 12/23/2015 KISHAN PLATT MD, Ot 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, 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 12/23/2015 KISHAN PLATT MD Ot L97.222 NON-PRESSURE CHRONIC ULCER OF LEFT CALF 12/26/2015 KISHAN PLATT MD Ot D68.51 ACTIVATED PROTEIN C RESISTANCE 12/26/2015 KISHAN PLATT MD Ot 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 ULC 12/26/2015 KISHAN PLATT MD Ot 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 12/26/2015 KISHAN PLATT MD Ot L97.222 NON-PRESSURE CHRONIC ULCER OF LEFT CALF 01/09/2016 KISHAN PLATT MD Ot D68.51 ACTIVATED PROTEIN C RESISTANCE 01/09/2016 KISHAN PLATT MD Ot 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 01/09/2016 KISHAN PLATT MD, Ot 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, 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 01/09/2016 KISHAN PLATT MD Ot L97.222 NON-PRESSURE CHRONIC ULCER OF LEFT CALF 01/29/2016 KISHAN PLATT MD, Ot D68.51 ACTIVATED PROTEIN C RESISTANCE 01/29/2016 KISHAN PLATT MD Ot 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 ULC 01/29/2016 KISHAN PLATT MD, Ot 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 01/29/2016 KISHAN PLATT MD Ot I87.2 VENOUS INSUFFICIENCY (CHRONIC) (PERIPHER 01/29/2016 KISHAN PLATT MD, Ot 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, 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, 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 01/31/2016 KISHAN PLATT MD, Ot L97.222 NON-PRESSURE CHRONIC ULCER OF LEFT CALF 02/01/2016 KISHAN PLATT MD, Ot D68.51 ACTIVATED PROTEIN C RESISTANCE 02/01/2016 KISHAN PLATT MD Ot 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 [facility] 02/01/2016 KISHAN PLATT MD, Ot 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 02/01/2016 KISHAN PLATT MD, Ot L97.222 NON-PRESSURE CHRONIC ULCER OF LEFT CALF 02/02/2016 KISHAN PLATT MD, Ot D68.51 ACTIVATED PROTEIN C RESISTANCE 02/02/2016 KISHAN PLATT MD, Ot 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 [facility] 02/02/2016 KISHAN PLATT MD, Ot 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 02/02/2016 KISHAN PLATT MD, Ot L97.222 NON-PRESSURE CHRONIC ULCER OF LEFT CALF 02/04/2016 KISHAN PLATT MD, Ot D68.51 ACTIVATED PROTEIN C RESISTANCE 02/04/2016 KISHAN PLATT MD Ot 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 [facility] 02/04/2016 KISHAN PLATT MD, Ot 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 02/04/2016 KISHAN PLATT MD Ot I87.2 VENOUS INSUFFICIENCY (CHRONIC) (PERIPHER 02/04/2016 KISHAN PLATT MD, Ot 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, 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 02/04/2016 KISHAN PLATT MD, Ot L97.222 NON-PRESSURE CHRONIC ULCER OF LEFT CALF 02/13/2016 KISHAN PLATT MD, Ot D68.51 ACTIVATED PROTEIN C RESISTANCE 02/13/2016 KISHAN PLATT MD Ot 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 [facility] 02/13/2016 KISHAN PLATT MD, Ot 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 02/13/2016 KISHAN PLATT MD Ot I87.2 VENOUS INSUFFICIENCY (CHRONIC) (PERIPHER 02/13/2016 KISHAN PLATT MD, Ot 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, 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 02/13/2016 KISHAN PLATT MD Ot L97.222 NON-PRESSURE CHRONIC ULCER OF LEFT CALF 02/15/2016 KISHAN PLATT MD, Ot D68.51 ACTIVATED PROTEIN C RESISTANCE 02/15/2016 KISHAN PLATT MD Ot 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 [facility] 02/15/2016 KISHAN PLATT MD, Ot 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 02/15/2016 KISHAN PLATT MD Ot L97.222 NON-PRESSURE CHRONIC ULCER OF LEFT CALF 03/02/2016 Ot 782.3 EDEMA 03/02/2016 ITALO RYAN MD Ot 729.5 PAIN IN LIMB 03/02/2016 ITALO RYAN MD Ot V12.51 HX-VENOUS THROMBOSIS EMBOLISM 03/02/2016 KISHAN PLATT MD, Ot D68.51 ACTIVATED PROTEIN C RESISTANCE 03/02/2016 KISHAN PLATT MD Ot 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 [facility] 03/02/2016 KISHAN PLATT MD Ot 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 03/02/2016 KISHAN PLATT MD Ot L97.222 NON-PRESSURE CHRONIC ULCER OF LEFT CALF 03/02/2016 KISHAN PLATT MD, Ot D68.51 ACTIVATED PROTEIN C RESISTANCE 03/02/2016 KISHAN PLATT MD Ot 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 ULC 03/02/2016 KISHAN PLATT MD, Ot 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 03/02/2016 KISHAN PLATT MD Ot L97.222 NON-PRESSURE CHRONIC ULCER OF LEFT CALF 03/02/2016 KISHAN PLATT MD, Ot D68.51 ACTIVATED PROTEIN C RESISTANCE 03/02/2016 KISHAN PLATT MD, Ot 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 ULC 03/02/2016 KISHAN PLATT MD, Ot 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 03/02/2016 KISHAN PLATT MD Ot 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, 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 03/02/2016 KISHAN PLATT MD Ot L97.222 NON-PRESSURE CHRONIC ULCER OF LEFT CALF 03/02/2016 KISHAN PLATT MD Ot 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 03/02/2016 RUDY JOHNSON MD Ot E66.9 OBESITY, UNSPECIFIED 03/02/2016 RUDY JOHNSON MD Ot I10 ESSENTIAL (PRIMARY) HYPERTENSION 03/02/2016 RUDY JOHNSON MD Ot L97.201 NON-PRS CHRONIC ULCER OF UNSP CALF LIMIT 03/02/2016 RUDY JOHNSON MD Ot I10 ESSENTIAL (PRIMARY) HYPERTENSION 03/02/2016 RUDY JOHNSON MD Ot I82.402 ACUTE EMBOLISM AND THOMBOS UNSP DEEP VEI 03/02/2016 KISHAN PLATT MD, Ot D68.51 ACTIVATED PROTEIN C RESISTANCE 03/02/2016 KISHAN PLATT MD Ot 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 03/02/2016 KISHAN PLATT MD Ot 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, 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 03/02/2016 KISHAN PLATT MD Ot L97.222 NON-PRESSURE CHRONIC ULCER OF LEFT CALF 03/02/2016 KISHAN PLATT MD Ot D68.51 ACTIVATED PROTEIN C RESISTANCE 03/02/2016 KISHAN PLATT MD Ot 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 03/02/2016 KISHAN PLATT MD Ot I87.2 VENOUS INSUFFICIENCY (CHRONIC) (PERIPHER 03/02/2016 KISHAN PLATT MD Ot 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, 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 03/02/2016 KISHAN PLATT MD Ot L97.222 NON-PRESSURE CHRONIC ULCER OF LEFT CALF 03/02/2016 KISHAN PLATT MD Ot D68.51 ACTIVATED PROTEIN C RESISTANCE 03/02/2016 KISHAN PLATT MD Ot 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 ULC 03/02/2016 KISHAN PLATT MD, Ot 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 03/02/2016 KISHAN PLATT MD Ot I87.2 VENOUS INSUFFICIENCY (CHRONIC) (PERIPHER 03/02/2016 KISHAN PLATT MD Ot 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, 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 03/02/2016 KISHAN PLATT MD Ot L97.222 NON-PRESSURE CHRONIC ULCER OF LEFT CALF 03/02/2016 Ot 782.3 EDEMA 03/02/2016 CONNOR WHITMAN, ITALO Giraldo Ot 729.5 PAIN IN LIMB 03/02/2016 ITALO RYAN MD Ot V12.51 HX-VENOUS THROMBOSIS EMBOLISM 03/02/2016 KISHAN PLATT MD Ot D68.51 ACTIVATED PROTEIN C RESISTANCE 03/02/2016 KISHAN PLATT MD Ot 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 ULC 03/02/2016 KISHAN PLATT MD Ot 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 03/02/2016 KISHAN PLATT MD Ot L97.222 NON-PRESSURE CHRONIC ULCER OF LEFT CALF 03/02/2016 KISHAN PLATT MD Ot D68.51 ACTIVATED PROTEIN C RESISTANCE 03/02/2016 KISHAN PLATT MD Ot 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 [facility] 03/02/2016 KISHAN PLATT MD Ot 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 03/02/2016 KISHAN PLATT MD Ot L97.222 NON-PRESSURE CHRONIC ULCER OF LEFT CALF 03/02/2016 KISHAN PLATT MD Ot D68.51 ACTIVATED PROTEIN C RESISTANCE 03/02/2016 KISHAN PLATT MD Ot 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 ULC 03/02/2016 KISHAN PLATT MD Ot 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 03/02/2016 KISHAN PLATT MD Ot 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, 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 03/02/2016 KISHAN PLATT MD Ot L97.222 NON-PRESSURE CHRONIC ULCER OF LEFT CALF 03/02/2016 KISHAN PLATT MD, Ot 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 03/02/2016 RUDY JOHNSON MD Ot E66.9 OBESITY, UNSPECIFIED 03/02/2016 RUDY JOHNSON MD Ot I10 ESSENTIAL (PRIMARY) HYPERTENSION 03/02/2016 RUDY JOHNSON MD Ot L97.201 NON-PRS CHRONIC ULCER OF UNSP CALF LIMIT 03/02/2016 RUDY JOHNSON MD Ot I10 ESSENTIAL (PRIMARY) HYPERTENSION 03/02/2016 RUDY JOHNSON MD Ot I82.402 ACUTE EMBOLISM AND THOMBOS UNSP DEEP VEI 03/02/2016 KISHAN PLATT MD, Ot D68.51 ACTIVATED PROTEIN C RESISTANCE 03/02/2016 KISHAN PLATT MD, Ot 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 03/02/2016 KISHAN PLATT MD Ot 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, 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 03/02/2016 KISHAN PLATT MD Ot L97.222 NON-PRESSURE CHRONIC ULCER OF LEFT CALF 03/02/2016 KISHAN PLATT MD Ot D68.51 ACTIVATED PROTEIN C RESISTANCE 03/02/2016 KISHAN PLATT MD Ot 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 03/02/2016 KISHAN PLATT MD Ot I87.2 VENOUS INSUFFICIENCY (CHRONIC) (PERIPHER 03/02/2016 KISHAN PLATT MD Ot 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, 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 03/02/2016 KISHAN PLATT MD Ot L97.222 NON-PRESSURE CHRONIC ULCER OF LEFT CALF 03/02/2016 KISHAN PLATT MD, Ot D68.51 ACTIVATED PROTEIN C RESISTANCE 03/02/2016 KISHAN PLATT MD Ot 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 ULC 03/02/2016 KISHAN PLATT MD Ot 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 03/02/2016 KISHAN PLATT MD Ot I87.2 VENOUS INSUFFICIENCY (CHRONIC) (PERIPHER 03/02/2016 KISHAN PLATT MD Ot 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, 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 03/02/2016 KISHAN PLATT MD Ot L97.222 NON-PRESSURE CHRONIC ULCER OF LEFT CALF 03/02/2016 KISHAN PLATT MD Ot D68.51 ACTIVATED PROTEIN C RESISTANCE 03/02/2016 KISHAN PLATT MD Ot 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 ULC 03/02/2016 KISHAN PLATT MD Ot 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 03/02/2016 KISHAN PLATT MD Ot I87.2 VENOUS INSUFFICIENCY (CHRONIC) (PERIPHER 03/02/2016 KISHAN PLATT MD Ot 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, 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 03/02/2016 KISHAN PLATT MD Ot L97.222 NON-PRESSURE CHRONIC ULCER OF LEFT CALF 03/02/2016 KISHAN PLATT MD Ot 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 03/02/2016 KISHAN PLATT MD Ot D68.51 ACTIVATED PROTEIN C RESISTANCE 03/02/2016 KISHAN PLATT MD Ot 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 ULC 03/02/2016 KISHAN PLATT MD Ot 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 03/02/2016 KISHAN PLATT MD Ot 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, 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 03/02/2016 KISHAN PLATT MD Ot L97.222 NON-PRESSURE CHRONIC ULCER OF LEFT CALF 03/06/2016 KAT WHITMAN FACC, SHOAIB GERARDOP CCDS Ot E11.9 TYPE 2 DIABETES MELLITUS WITHOUT COMPLIC 03/06/2016 KAT WHITMAN FACC, SHOAIB GERARDOP CCDS Ot G47.30 SLEEP APNEA, UNSPECIFIED 03/06/2016 KAT WIHTMAN FACC, SHOAIB FACP CCDS Ot R00.2 PALPITATIONS 03/06/2016 KAT WHITMAN FACC, SHOAIB GERARDOP CCDS Ot R06.02 SHORTNESS OF BREATH 03/06/2016 KAT GERARDOC, ALI FACP CCDS Ot R07.89 OTHER CHEST PAIN 03/06/2016 KAT GERARDOC, ALI FACP CCDS Ot R42 DIZZINESS AND GIDDINESS 03/07/2016 KAT WHITMAN FACC, ALI FACP CCDS Ot E11.9 TYPE 2 DIABETES MELLITUS WITHOUT COMPLIC 03/07/2016 KAT WHITMAN FACC, ALI FACP CCDS Ot G47.30 SLEEP APNEA, UNSPECIFIED 03/07/2016 KAT GERARDOC, ALI FACP CCDS Ot R00.2 PALPITATIONS 03/07/2016 KAT WHITMAN FACC, ALI FACP CCDS Ot R06.02 SHORTNESS OF BREATH 03/07/2016 KAT WHITMAN FACC, ALI FACP CCDS Ot R07.89 OTHER CHEST PAIN 03/07/2016 KAT WHITMAN FACC, ALI FACP CCDS Ot R42 DIZZINESS AND GIDDINESS 03/14/2016 KAT WHITMAN FACC, ALI FACP CCDS Ot E11.9 TYPE 2 DIABETES MELLITUS WITHOUT COMPLIC 03/14/2016 KAT WHITMAN FACC, ALI FACP CCDS Ot G47.30 SLEEP APNEA, UNSPECIFIED 03/14/2016 KAT WHITMAN FACC, ALI FACP CCDS Ot R00.2 PALPITATIONS 03/14/2016 KAT WHITMAN FACC, ALI FACP CCDS Ot R06.02 SHORTNESS OF BREATH 03/14/2016 KAT WHITMAN FACC, ALI FACP CCDS Ot R07.89 OTHER CHEST PAIN 03/14/2016 KAT WHITMAN FACC, ALI FACP CCDS Ot R42 DIZZINESS AND GIDDINESS 03/14/2016 KAT WHITMAN FACC, ALI FACP CCDS Ot E11.9 TYPE 2 DIABETES MELLITUS WITHOUT COMPLIC 03/14/2016 KAT WHITMAN FACC, ALI FACP CCDS Ot G47.30 SLEEP APNEA, UNSPECIFIED 03/14/2016 KAT WHITMAN FACC, ALI FACP CCDS Ot R00.2 PALPITATIONS 03/14/2016 KAT WHITMAN FACC, ALI FACP CCDS Ot R06.02 SHORTNESS OF BREATH 03/14/2016 KAT WHITMAN FACC, ALI FACP CCDS Ot R07.89 OTHER CHEST PAIN 03/14/2016 KAT WHITMAN FACC, ALI FACP CCDS Ot R42 DIZZINESS AND GIDDINESS 03/19/2016 KAT WHITMAN FACC, ALI FACP CCDS Ot E11.9 TYPE 2 DIABETES MELLITUS WITHOUT COMPLIC 03/19/2016 KAT WHITMAN FACC, ALI FACP CCDS Ot G47.30 SLEEP APNEA, UNSPECIFIED 03/19/2016 KAT WHITMAN FACLiv, ALI FACP CCDS Ot R00.2 PALPITATIONS 03/19/2016 KAT WHITMAN FACC, ALI FACP CCDS Ot R06.02 SHORTNESS OF BREATH 03/19/2016 KAT WHITMAN FACC, ALI FACP CCDS Ot R07.89 OTHER CHEST PAIN 03/19/2016 KAT WHITMAN FACC, ALI FACP CCDS Ot R42 DIZZINESS AND GIDDINESS 03/30/2016 KAT WHITMAN FACLiv, ALI FACP CCDS Ot E11.9 TYPE 2 DIABETES MELLITUS WITHOUT COMPLIC 03/30/2016 KAT WHITMAN FACC, ALI FACP CCDS Ot G47.30 SLEEP APNEA, UNSPECIFIED 03/30/2016 KAT WHITMAN FACLiv, ALI FACP CCDS Ot R00.2 PALPITATIONS 03/30/2016 KAT WHITMAN FACC, ALI FACP CCDS Ot R06.02 SHORTNESS OF BREATH 03/30/2016 KAT WHITMAN FACC, ALI FACP CCDS Ot R07.89 OTHER CHEST PAIN 03/30/2016 KAT WHITMAN FACC, ALI FACP CCDS Ot R42 DIZZINESS AND GIDDINESS 04/02/2016 KISHAN PLATT MD Ot D68.51 ACTIVATED PROTEIN C RESISTANCE 04/02/2016 KISHAN PLATT MD Ot 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 ULC 04/02/2016 KISHAN PLATT MD Ot 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 04/02/2016 KISHAN PLATT MD Ot I87.2 VENOUS INSUFFICIENCY (CHRONIC) (PERIPHER 04/02/2016 KISHAN PLATT MD Ot 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, 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 04/02/2016 KISHAN PLATT MD Ot L97.222 NON-PRESSURE CHRONIC ULCER OF LEFT CALF 04/11/2016 KAT WHITMAN FACC, ALI FACP CCDS Ot E11.9 TYPE 2 DIABETES MELLITUS WITHOUT COMPLIC 04/11/2016 KAT WHITMAN FACC, ALI FACP CCDS Ot G47.30 SLEEP APNEA, UNSPECIFIED 04/11/2016 KAT WHITMAN FACC, ALI FACP CCDS Ot R00.2 PALPITATIONS 04/11/2016 KAT WHITMAN [facility], ALI FACP CCDS Ot R06.02 SHORTNESS OF BREATH 04/11/2016 KAT WHITMAN [facility] FACP CCDS Ot R07.89 OTHER CHEST PAIN 04/11/2016 KAT WHITMAN [facility] FACP CCDS Ot R42 DIZZINESS AND GIDDINESS 04/11/2016 KISHAN PLATT MD, Ot 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 04/11/2016 KISHAN PLATT MD, Ot D68.51 ACTIVATED PROTEIN C RESISTANCE 04/11/2016 KISHAN PLATT MD, Ot 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 ULC 04/11/2016 KISHAN PLATT MD, Ot 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 04/11/2016 KISHAN PLATT MD, Ot 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, 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 04/11/2016 KISHAN PLATT MD, Ot L97.222 NON-PRESSURE CHRONIC ULCER OF LEFT CALF 04/12/2016 KISHAN PLATT MD Ot E11.622 TYPE 2 DIABETES MELLITUS WITH OTHER SKIN 04/12/2016 KISHAN PLATT MD, Ot 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, 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 04/12/2016 KISHAN PLATT MD, Ot L97.222 NON-PRESSURE CHRONIC ULCER OF LEFT CALF 04/25/2016 KISHAN PLATT MD Ot E11.622 TYPE 2 DIABETES MELLITUS WITH OTHER SKIN 04/25/2016 KISHAN PLATT MD, Ot 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, 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 04/25/2016 KISHAN PLATT MD, Ot L97.222 NON-PRESSURE CHRONIC ULCER OF LEFT CALF 05/15/2016 KISHAN PLATT MD, Ot D68.51 ACTIVATED PROTEIN C RESISTANCE 05/15/2016 KISHAN PLATT MD Ot 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 05/15/2016 KISHAN PLATT MD, Ot 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 05/15/2016 KISHAN PLATT MD Ot I87.2 VENOUS INSUFFICIENCY (CHRONIC) (PERIPHER 05/15/2016 KISHAN PLATT MD, Ot 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, 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 05/15/2016 KISHAN PLATT MD, Ot L97.222 NON-PRESSURE CHRONIC ULCER OF LEFT CALF 05/16/2016 KISHAN PLATT MD, Ot D68.51 ACTIVATED PROTEIN C RESISTANCE 05/16/2016 KISHAN PLATT MD Ot 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 [facility] 05/16/2016 KISHAN PLATT MD, Ot 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 05/16/2016 KISHAN PLATT MD Ot I87.2 VENOUS INSUFFICIENCY (CHRONIC) (PERIPHER 05/16/2016 KISHAN PLATT MD, Ot 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, 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51 ACTIVATED PROTEIN C RESISTANCE 07/05/2016 KISHAN PLATT MD Ot 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 [facility] 07/05/2016 KISHAN PLATT MD, Ot 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 07/05/2016 KISHAN PLATT MD Ot I87.2 VENOUS INSUFFICIENCY (CHRONIC) (PERIPHER 07/05/2016 KISHAN PLATT MD, Ot 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, 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 07/05/2016 KISHAN PLATT MD, Ot L97.222 NON-PRESSURE CHRONIC ULCER OF LEFT CALF 07/27/2016 KISHAN PLATT MD, Ot D68.51 ACTIVATED PROTEIN C RESISTANCE 07/27/2016 KISHAN PLATT MD Ot 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 [facility] 07/27/2016 KISHAN PLATT MD, Ot 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 07/27/2016 KISHAN PLATT MD, Ot I87.2 VENOUS INSUFFICIENCY (CHRONIC) (PERIPHER 07/27/2016 KISHAN PLATT MD, Ot 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, 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 07/27/2016 KISHAN PLATT MD, Ot L97.222 NON-PRESSURE CHRONIC ULCER OF LEFT CALF 08/07/2016 NANI DO JUDI K Ot D68.51 ACTIVATED PROTEIN C RESISTANCE 08/07/2016 NANI DO JUDI K Ot E11.9 TYPE 2 DIABETES MELLITUS WITHOUT COMPLIC 08/07/2016 NANI DO JUDI K Ot E66.01 MORBID (SEVERE) OBESITY DUE TO EXCESS CA 08/07/2016 NANI DO JUDI K Ot E83.42 HYPOMAGNESEMIA 08/07/2016 NANI DO JUDI K Ot I10 ESSENTIAL (PRIMARY) HYPERTENSION 08/07/2016 NANI ARYA JOHNSONA K Ot R42 DIZZINESS AND GIDDINESS 08/07/2016 NANI DO JUDI K Ot Z79.82 USP (CURRENT) USE OF ASPIRIN 08/07/2016 NANI DO JUDI K Ot Z79.84 [employer] (CURRENT) USE OF ORAL HYPOGLYC 08/07/2016 NANI ARYA JOHNSONA K Ot 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 08/07/2016 NANI JOHNSON JUDI K Ot Z86.718 PERSONAL HISTORY OF OTHER VENOUS THROMBO 08/14/2016 KISHAN PLATT MD, Ot D68.51 ACTIVATED PROTEIN C RESISTANCE 08/14/2016 KISHAN PLATT MD Ot 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 ULC 08/14/2016 KISHAN PLATT MD, Ot 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 08/14/2016 KISHAN PLATT MD, Ot I87.2 VENOUS INSUFFICIENCY (CHRONIC) (PERIPHER 08/14/2016 KISHAN PLATT MD, Ot 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, 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 08/14/2016 KISHAN PLATT MD, Ot L97.222 NON-PRESSURE CHRONIC ULCER OF LEFT CALF Procedures Results Test Result Range Comprehensive metabolic panel - 12/14/15 13:14 Serum or plasma sodium measurement (moles/volume) 142 mmol/ L 135-145 Serum or plasma potassium measurement (moles/volume) 4.2 mmol/L 3.6-5.0 Serum or plasma chloride measurement (moles/volume) 109 mmol /L 98-107 Carbon dioxide 25 mmol/L 21-32 Serum or plasma anion gap determination (moles/volume) 8 mmol/L 5-14 Serum or plasma urea nitrogen measurement (mass/volume) 15 mg/dL 7-18 Serum or plasma creatinine measurement (mass/volume) 0.84 mg /dL 0.60-1.30 Serum or plasma urea nitrogen/creatinine mass ratio 18 NRG Serum or plasma creatinine measurement with calculation of estimated glomerular filtration rate > NRG Serum or plasma glucose measurement (mass/volume) 150 mg/dL 70-105 Serum or plasma calcium measurement (mass/volume) 9.2 mg/dL 8.5-10.1 Serum or plasma total bilirubin measurement (mass/volume) 0.5 mg/dL 0.1-1.0 Serum or plasma alkaline phosphatase measurement (enzymatic activity/volume) 55 U/L 40-136 Serum or plasma aspartate aminotransferase measurement (enzymatic activity/ volume) 19 U/L 5-34 Serum or plasma alanine aminotransferase measurement (enzymatic activity/volume ) 41 U/L 0-55 Serum or plasma protein measurement (mass/volume) 6.7 g/dL 6.4-8.2 Serum or plasma albumin measurement (mass/volume) 3.7 g/dL 3.2-4.5 Complete blood count (CBC) with automated white blood cell (WBC) differential - 12/14/15 13:14 Blood leukocytes automated count (number/volume) 14.3 10*3/ uL 4.3-11.0 Blood erythrocytes automated count (number/volume) 4.52 10*6 /uL 4.35-5.85 Venous blood hemoglobin measurement (mass/volume) 13.2 g/dL 13.3-17.7 Blood hematocrit (volume fraction) 41 % 40-54 Automated erythrocyte mean corpuscular volume 91 [foz_us] 80-99 Automated erythrocyte mean corpuscular hemoglobin (mass per erythrocyte) 29 pg 25-34 Automated erythrocyte mean corpuscular hemoglobin concentration measurement ( mass/volume) 32 g/dL 32-36 Automated erythrocyte distribution width ratio 14.9 % 10.0-14.5 Automated blood platelet count (count/volume) 265 10*3/uL 130-400 Automated blood platelet mean volume measurement 11.0 [foz_ us] 7.4-10.4 Automated blood neutrophils/100 leukocytes 88 % 42-75 Automated blood lymphocytes/100 leukocytes 7 % 12-44 Blood monocytes/100 leukocytes 5 % 0-12 Automated blood eosinophils/100 leukocytes 0 % 0-10 Automated blood basophils/100 leukocytes 0 % 0-10 Blood neutrophils automated count (number/volume) 12.6 10*3 1.8-7.8 Blood lymphocytes automated count (number/volume) 1.0 10*3 1.0-4.0 Blood monocytes automated count (number/volume) 0.7 10*3 0.0-1.0 Automated eosinophil count 0.0 10*3/uL 0.0-0.3 Automated blood basophil count (count/volume) 0.0 10*3/uL 0.0-0.1 Blood manual differential performed detection - 12/14/15 13:14 Blood monocytes/100 leukocytes 7 % NRG Manual blood segmented neutrophils/100 leukocytes 88 % NRG Blood band neutrophils/100 leukocytes 0 % NRG Manual blood lymphocytes/100 leukocytes 5 % NRG Manual eosinophils/100 leukocytes in nose 0 % NRG Manual blood basophils/100 leukocytes 0 % NRG Blood erythrocyte morphology finding identification NORMAL NRG Bacteria identification in isolate by anaerobe culture - 12/21/15 14:05 Bacteria identification in isolate by anaerobe culture NOANA NRG Gram stain microscopy - 12/21/15 14:05 GRAM STAIN RESULT FEW WBC'S, NO BACTERIA OBSERVED NRG Bacteria identification in wound by culture - 12/21/15 14:05 Bacteria identification in wound by culture [id number] NR FREE TEXT EXTERNAL SENSITIVITY REPORTED 12/21 16:25 NRG QUANTITY OF GROWTH Moderate Growth NRG MRSA AGAR Screening test for MRSA is NEGATIVE (Final to follow) NR Bacterial susceptibility panel - 12/21/15 14:05 Oxacillin susceptibility test by minimum inhibitory concentration <= NRG Gentamicin susceptibility test by minimum inhibitory concentration <= NRG Clindamycin susceptibility test by minimum inhibitory concentration >= NRG Erythromycin susceptibility test by minimum inhibitory concentration >= NRG Trimethoprim/sulfamethoxazole susceptibility test by minimum inhibitoryconcentration <= NRG Vancomycin susceptibility test by minimum inhibitory concentration 1 NRG Levofloxacin susceptibility test by minimum inhibitory concentration <= NRG Rifampin susceptibility test by minimum inhibitory concentration <= NRG Tetracycline susceptibility test by minimum inhibitory concentration >= NRG Hemoglobin A1c - 01/11/16 14:21 Hemoglobin A1c 6.7 % 4.5-6.2 Bacteria identification in isolate by anaerobe culture - 01/25/16 13:20 Bacteria identification in isolate by anaerobe culture NOANA NRG Gram stain microscopy - 01/25/16 13:20 GRAM STAIN RESULT NO WBC'S OR BACTERIA OBSERVED NRG Bacteria identification in wound by culture - 01/25/16 13:20 Bacteria identification in wound by culture [id number] NRG FREE TEXT EXTERNAL NO FURTHER SENSITIVITIES, UNLESS NRG QUANTITY OF GROWTH Scant Growth NRG FREE TEXT ENTRY [address] ALEXANDRE Bacterial susceptibility panel - 01/25/16 13:20 Oxacillin susceptibility test by minimum inhibitory concentration 0.5 NRG Gentamicin susceptibility test by minimum inhibitory concentration <= NRG Clindamycin susceptibility test by minimum inhibitory concentration >= NRG Erythromycin susceptibility test by minimum inhibitory concentration >= NRG Trimethoprim/sulfamethoxazole susceptibility test by minimum inhibitoryconcentration <= NRG Vancomycin susceptibility test by minimum inhibitory concentration <= NRG Levofloxacin susceptibility test by minimum inhibitory concentration <= NRG Rifampin susceptibility test by minimum inhibitory concentration <= NRG Tetracycline susceptibility test by minimum inhibitory concentration >= NRG Bacteria identification in isolate by anaerobe culture - 02/29/16 13:10 Bacteria identification in isolate by anaerobe culture NG NRG Gram stain microscopy - 02/29/16 13:10 GRAM STAIN RESULT NO WBC'S OR BACTERIA OBSERVED NRG Bacteria identification in wound by culture - 02/29/16 13:10 Bacteria identification in wound by culture NG NRG Bacteria identification in isolate by anaerobe culture - 04/04/16 09:00 Bacteria identification in isolate by anaerobe culture NG NRG Gram stain microscopy - 04/04/16 09:00 GRAM STAIN RESULT NO WBC'S OR BACTERIA OBSERVED NRG Bacteria identification in wound by culture - 04/04/16 09:00 Bacteria identification in wound by culture NG NRG Complete blood count (CBC) with automated white blood cell (WBC) differential - 04/11/16 08:45 Blood leukocytes automated count (number/volume) 16.0 10*3/ uL 4.3-11.0 Blood erythrocytes automated count (number/volume) 4.70 10*6 /uL 4.35-5.85 Venous blood hemoglobin measurement (mass/volume) 14.3 g/dL 13.3-17.7 Blood hematocrit (volume fraction) 44 % 40-54 Automated erythrocyte mean corpuscular volume 95 [foz_us] 80-99 Automated erythrocyte mean corpuscular hemoglobin (mass per erythrocyte) 30 pg 25-34 Automated erythrocyte mean corpuscular hemoglobin concentration measurement ( mass/volume) 32 g/dL 32-36 Automated erythrocyte distribution width ratio 15.1 % 10.0-14.5 Automated blood platelet count (count/volume) 262 10*3/uL 130-400 Automated blood platelet mean volume measurement 10.4 [foz_ us] 7.4-10.4 Automated blood neutrophils/100 leukocytes 72 % 42-75 Automated blood lymphocytes/100 leukocytes 20 % 12-44 Blood monocytes/100 leukocytes 7 % 0-12 Automated blood eosinophils/100 leukocytes 1 % 0-10 Automated blood basophils/100 leukocytes 0 % 0-10 Blood neutrophils automated count (number/volume) 11.5 10*3 1.8-7.8 Blood lymphocytes automated count (number/volume) 3.1 10*3 1.0-4.0 Blood monocytes automated count (number/volume) 1.2 10*3 0.0-1.0 Automated eosinophil count 0.2 10*3/uL 0.0-0.3 Automated blood basophil count (count/volume) 0.0 10*3/uL 0.0-0.1 Blood manual differential performed detection - 04/11/16 08:45 Blood monocytes/100 leukocytes 8 % NRG Manual blood segmented neutrophils/100 leukocytes 69 % NRG Blood band neutrophils/100 leukocytes 0 % NRG Manual blood lymphocytes/100 leukocytes 14 % NRG Manual eosinophils/100 leukocytes in nose 3 % NRG Manual blood basophils/100 leukocytes 0 % NRG Blood lymphocytes variant/100 leukocytes 6 % NRG Blood erythrocyte morphology finding identification NORMAL [facility] Comprehensive metabolic panel - 04/11/16 08:45 Serum or plasma sodium measurement (moles/volume) 141 mmol/ L 135-145 Serum or plasma potassium measurement (moles/volume) 4.1 mmol/L 3.6-5.0 Serum or plasma chloride measurement (moles/volume) 108 mmol /L 98-107 Carbon dioxide 22 mmol/L 21-32 Serum or plasma anion gap determination (moles/volume) 11 mmol/L 5-14 Serum or plasma urea nitrogen measurement (mass/volume) 8 mg /dL 7-18 Serum or plasma creatinine measurement (mass/volume) 0.85 mg /dL 0.60-1.30 Serum or plasma urea nitrogen/creatinine mass ratio 9 NRG Serum or plasma creatinine measurement with calculation of estimated glomerular filtration rate > NRG Serum or plasma glucose measurement (mass/volume) 116 mg/dL 70-105 Serum or plasma calcium measurement (mass/volume) 8.9 mg/dL 8.5-10.1 Serum or plasma total bilirubin measurement (mass/volume) 0.5 mg/dL 0.1-1.0 Serum or plasma alkaline phosphatase measurement (enzymatic activity/volume) 53 U/L 40-136 Serum or plasma aspartate aminotransferase measurement (enzymatic activity/ volume) 18 U/L 5-34 Serum or plasma alanine aminotransferase measurement (enzymatic activity/volume ) 43 U/L 0-55 Serum or plasma protein measurement (mass/volume) 6.6 g/dL 6.4-8.2 Serum or plasma albumin measurement (mass/volume) 3.8 g/dL 3.2-4.5 Hemoglobin A1c - 04/11/16 08:45 Hemoglobin A1c 6.1 % 4.5-6.2 Bacteria identification in isolate by anaerobe culture - 06/13/16 09:22 QUANTITY OF GROWTH Moderate Growth NRG Bacteria identification in isolate by anaerobe culture [id number] [facility] Gram stain microscopy - 06/13/16 09:22 GRAM STAIN RESULT RARE GRAM POSITIVE COCCI NR Bacteria identification in wound by culture - 06/13/16 09:22 Bacteria identification in wound by culture [id number] [facility] FREE TEXT EXTERNAL (NOT JK) NRG QUANTITY OF GROWTH Scant Growth NR MRSA AGAR Screening test for MRSA is NEGATIVE (Final to follow) [facility] FREE TEXT ENTRY 2 SENSITIVITY REPORTED AT 0742, 2-3-17 NR Bacterial susceptibility panel - 06/13/16 09:22 Oxacillin susceptibility test by minimum inhibitory concentration 0.5 NRG Gentamicin susceptibility test by minimum inhibitory concentration <= NRG Clindamycin susceptibility test by minimum inhibitory concentration <= NRG Erythromycin susceptibility test by minimum inhibitory concentration <= NRG Trimethoprim/sulfamethoxazole susceptibility test by minimum inhibitoryconcentration <= NRG Vancomycin susceptibility test by minimum inhibitory concentration 1 NRG Levofloxacin susceptibility test by minimum inhibitory concentration <= NRG Rifampin susceptibility test by minimum inhibitory concentration <= NRG Tetracycline susceptibility test by minimum inhibitory concentration <= NRG Bacteria identification in isolate by anaerobe culture - 07/11/16 10:26 Bacteria identification in isolate by anaerobe culture NOANA NRG Gram stain microscopy - 07/11/16 10:26 GRAM STAIN RESULT RARE GRAM POSITIVE [place] NRG Bacteria identification in wound by culture - 07/11/16 10:26 Bacteria identification in wound by culture [id number] NRG FREE TEXT EXTERNAL NOT CORYNEBACTERIUM JK(JEIKEIUM) NRG QUANTITY OF GROWTH Scant Growth NRG Capillary blood glucose measurement by glucometer (mass/volume) - 08/05/16 07: 33 Capillary blood glucose measurement by glucometer (mass/volume) 100 mg/dL 70-110 Complete blood count (CBC) with automated white blood cell (WBC) differential - 08/05/16 07:35 Blood leukocytes automated count (number/volume) 11.6 10*3/ uL 4.3-11.0 Blood erythrocytes automated count (number/volume) 4.48 10*6 /uL 4.35-5.85 Venous blood hemoglobin measurement (mass/volume) 13.4 g/dL 13.3-17.7 Blood hematocrit (volume fraction) 42 % 40-54 Automated erythrocyte mean corpuscular volume 93 [foz_us] 80-99 Automated erythrocyte mean corpuscular hemoglobin (mass per erythrocyte) 30 pg 25-34 Automated erythrocyte mean corpuscular hemoglobin concentration measurement ( mass/volume) 32 g/dL 32-36 Automated erythrocyte distribution width ratio 13.9 % 10.0-14.5 Automated blood platelet count (count/volume) 262 10*3/uL 130-400 Automated blood platelet mean volume measurement 11.0 [foz_ us] 7.4-10.4 Automated blood neutrophils/100 leukocytes 67 % 42-75 Automated blood lymphocytes/100 leukocytes 16 % 12-44 Blood monocytes/100 leukocytes 10 % 0-12 Automated blood eosinophils/100 leukocytes 7 % 0-10 Automated blood basophils/100 leukocytes 0 % 0-10 Blood neutrophils automated count (number/volume) 7.7 10*3 1.8-7.8 Blood lymphocytes automated count (number/volume) 1.9 10*3 1.0-4.0 Blood monocytes automated count (number/volume) 1.2 10*3 0.0-1.0 Automated eosinophil count 0.8 10*3/uL 0.0-0.3 Automated blood basophil count (count/volume) 0.0 10*3/uL 0.0-0.1 PT panel in platelet poor plasma by coagulation assay - 08/05/16 07:35 Prothrombin time (PT) in platelet poor plasma by coagulation assay 12.4 s 12.2-14.7 INR in platelet poor plasma or blood by coagulation assay 1.0 0.8-1.4 Activated partial thromboplastin time (aPTT) in platelet poor plasma bycoagulation assay - 08/05/16 07:35 Activated partial thromboplastin time (aPTT) in platelet poor plasma bycoagulation assay 26 s 24-35 Comprehensive metabolic panel - 08/05/16 07:35 Serum or plasma sodium measurement (moles/volume) 141 mmol/ L 135-145 Serum or plasma potassium measurement (moles/volume) 4.2 mmol/L 3.6-5.0 Serum or plasma chloride measurement (moles/volume) 109 mmol /L 98-107 Carbon dioxide 23 mmol/L 21-32 Serum or plasma anion gap determination (moles/volume) 9 mmol/L 5-14 Serum or plasma urea nitrogen measurement (mass/volume) 10 mg/dL 7-18 Serum or plasma creatinine measurement (mass/volume) 0.85 mg /dL 0.60-1.30 Serum or plasma urea nitrogen/creatinine mass ratio 12 NRG Serum or plasma creatinine measurement with calculation of estimated glomerular filtration rate > NRG Serum or plasma glucose measurement (mass/volume) 106 mg/dL 70-105 Serum or plasma calcium measurement (mass/volume) 9.3 mg/dL 8.5-10.1 Serum or plasma total bilirubin measurement (mass/volume) 0.4 mg/dL 0.1-1.0 Serum or plasma alkaline phosphatase measurement (enzymatic activity/volume) 52 U/L 40-136 Serum or plasma aspartate aminotransferase measurement (enzymatic activity/ volume) 17 U/L 5-34 Serum or plasma alanine aminotransferase measurement (enzymatic activity/volume ) 25 U/L 0-55 Serum or plasma protein measurement (mass/volume) 6.7 g/dL 6.4-8.2 Serum or plasma albumin measurement (mass/volume) 3.5 g/dL 3.2-4.5 Magnesium - 08/05/16 07:35 Magnesium 1.6 mg/dL 1.8-2.4 Serum or plasma creatine kinase measurement (enzymatic activity/volume) - 08/05 07:35 Serum or plasma creatine kinase measurement (enzymatic activity/volume) 63 U/L 30-200 Serum or plasma creatine kinase MB measurement (enzymatic activity/volume) - 07:35 Serum or plasma creatine kinase MB measurement (enzymatic activity/volume) 1.1 ng/mL <6.6 Serum or plasma lithium measurement (moles/volume) - 08/05/16 07:35 BNP level 18.3 pg/mL <100.0 Serum or plasma troponin i.cardiac measurement (mass/volume) - 08/05/16 07:35 Serum or plasma troponin i.cardiac measurement (mass/volume) < ng/mL <0.30 Lipase - 08/05/16 07:35 Lipase 38 U/L 8-78 Serum or plasma thyrotropin measurement by detection limit <=0.05 miu/l (units/ volume) - 08/05/16 07:35 Serum or plasma thyrotropin measurement by detection limit <=0.05 miu/l (units/ volume) 2.78 u[iU]/mL 0.35-4.94 Complete urinalysis with reflex to culture - 08/05/16 08:27 Urine color determination YELLOW NRG Urine clarity determination CLEAR NRG Urine pH measurement by test strip 5 5- 9 Specific gravity of urine by test strip 1.025 1.016-1.022 Urine protein assay by test strip, semi-quantitative 1+ NEGATIVE Urine glucose detection by automated test strip NEGATIVE NEGATIVE Erythrocytes detection in urine sediment by light microscopy NEGATIVE NEGATIVE Urine ketones detection by automated test strip NEGATIVE NEGATIVE Urine nitrite detection by test strip NEGATIVE NEGATIVE Urine total bilirubin detection by test strip 1+ NEGATIVE Urine urobilinogen measurement by automated test strip (mass/volume) 1 mg/dL NORMAL Urine leukocyte esterase detection by dipstick 1+ NEGATIVE Automated urine sediment erythrocyte count by microscopy (number/high power field) NONE NRG Automated urine sediment leukocyte count by microscopy (number/high power field ) NONE NRG Bacteria detection in urine sediment by light microscopy NEGATIVE NRG Squamous epithelial cells detection in urine sediment by light microscopy RARE NRG Crystals detection in urine sediment by light microscopy PRESENT NRG Casts detection in urine sediment by light microscopy NONE NRG Mucus detection in urine sediment by light microscopy SMALL NRG Complete urinalysis with reflex to culture NO NRG Calcium oxalate crystals detection in urine sediment by light microscopy MODERATE NRG Encounters ACCT No. Visit Date/Time Discharge Status Pt. Type Provider Facility Loc./Unit Complaint [id number] 08/08/2016 10:50:00 2016 00:01:00 DIS Outpatient KISHAN PLATT MD [facility] WOUND[facility] [id number] 08/05/2016 07:21:00 2016 10:47:00 DIS Outpatient NANI JUDI Blevins [facility] ER SOB, SYNCOPE [id number] 05/04/2016 07:24:00 2016 00:01:00 DIS Outpatient KISHAN PLATT MD [id number] 02/07/2016 08:47:00 2015 09:06:00 DIS Outpatient KISHAN PLATT MD [facility] WOUND[facility] [id number] 01/25/2016 12:33:00 2015 00:01:00 DIS Outpatient KISHAN PLATT MD [facility] [id number] 10/24/2015 14:13:00 2015 00:01:00 DIS Outpatient KISHAN PLATT MD [facility] [id number] 03/31/2015 11:53:00 2014 23:59:59 CLS Preadmit ELENI KEITA APRN [facility] WOUNDC[facility] [id number] 02/12/2015 22:42:00 2014 23:57:00 DIS Emergency CHRIS ANDERSON MD [facility] ER LEFT LEG SWOLLEN HOT [id number] 08/04/2014 14:17:00 2014 23:59:59 CLS Outpatient ITALO RYAN MD [facility] RAD RT LEG PAIN [id number] 08/15/2016 00:10:00 PEN Preadmit KISHAN PLATT MD [facility] WOUNDC[facility] [id number] 04/11/2016 08:40:00 ACT Outpatient KISHAN PLATT MD [facility] LAB NECROBIOSIS LIPOIDICA,TYPE 2 DIABETES [id number] 03/13/2016 11:33:00 ACT Outpatient KAT WHITMAN FACC, SHOAIB ARIZA CCDS [facility] CARD CHEST DISCOMFORT,SOB ON EXERTION [id number] 03/02/2016 07:47:00 ACT Outpatient KAT WHITMAN FACLiv, SHOAIB ARIZA CCDS [facility] CARD CHEST DISCOMFORT,SOB ON EXERTION [id number] 01/11/2016 14:04:00 ACT Outpatient KISHAN PLATT MD [facility] LAB L92.1,L97.222,I87.032,I87.2,D68.51 [id number] 12/14/2015 13:10:00 ACT Outpatient KISHAN PLATT MD [facility] LAB NON PRESSURE CHRONIC ULCER OF L CALF [id number] 11/24/2015 10:09:00 ACT Outpatient RUDY JOHNSON MD [facility] LAB SKIN ULCER OF CALF,OBESITY,ESSENTIAL HTN,DVT [id number] 11/23/2015 13:35:00 ACT Outpatient RUDY JOHNSON MD [facility] LAB SKIN ULCER OF CALF,DVT [id number] 11/03/2015 14:06:00 ACT Outpatient KISHAN PLATT MD [facility] RAD L LEG REFLUX EVALUATION [id number] 09/15/2015 14:10:00 ACT Outpatient KISHAN PLATT MD [facility] RAD LEFT LOWER LEG ULCER W/ABNORMAL JEANETTE [id number] 08/08/2015 15:43:00 ACT Outpatient KISHAN PLATT MD [facility] LAB ELEVATED BLOOD SUGARS [id number] 07/29/2015 15:02:00 ACT Outpatient KISHAN PLATT MD [facility] RAD ULCER OF THE CALF,PAD [id number] 08/04/2014 14:16:00 Document Registration [id number] 08/04/2014 14:16:00 Document Registration [id number] 07/12/2011 13:17:00 Document Registration [id number] 05/10/2011 11:10:00 Document Registration [id number] 02/13/2011 18:07:00 Document Registration [id number] 02/13/2011 17:19:00 Document Registration
--- OUTSIDE RECORDS SUMMARY | 2016-08-21 13:00 | XMS REPORT ---
Author Author AMELIA JORDAN [facility], [place] eClinicalWorks Address Unknown Phone Unavailable Care Team Providers Care Account Executive Key Accounts Name Role Phone AMELIA JORDAN CP Unavailable [...] Problem PVD (peripheral vascular disease) I73.9 Active Assessment PVD (peripheral vascular disease) I73.9 Active Assessment Mixed hyperlipidemia E78.2 Active Assessment Dizziness R42 Active Assessment Chest heaviness R07.89 Active Medications Medication Code System Code Instructions Start Date End Date Status Dosage Aspirin [facility] [address]-67 325 MG Orally Once a day 1 tablet PredniSONE [facility] [address]-46 5 MG Orally Once a day 1 tablet Pravastatin Sodium [facility] [address]-53 10 MG Orally Once a day Feb 21, 2016 1 tablet MetFORMIN HCl ER [facility] [address]-24 500 MG Orally 2 times a day 2 tablets Tacrolimus [facility] [address]-73 0.1 % Externally twice a day 1 application to affected area Lisinopril [facility] [address]-34 5 MG Orally Once a day 1 tablet Procedures Procedure Coding System Code Date ELECTROCARDIOGRAM, TRACING CPT-4 58106 Feb 21, 2016 ASSAY OF MAGNESIUM CPT-4 99056 Feb 21, 2016 MEASURE BLOOD OXYGEN LEVEL CPT-4 30254 Feb 21, 2016 COMPLETE CBC W/AUTO DIFF WBC CPT-4 38535 Feb 21, 2016 ASSAY THYROID STIM HORMONE CPT-4 07425 Feb 21, 2016 Office Visit, Est Pt., Level 4 CPT-4 81956 Feb 21, 2016 VENIPUNCT, ROUTINE* CPT-4 98781 Feb 21, 2016 Vital Signs Date/Time: Feb 21, 2016 Cardiac Monitoring Heart Rate 92 bpm Weight 410.0 lbs Height 72 in BMI 55.60 Index Oximetry 97 % Blood Pressure Diastolic 82 mmHg Blood Pressure Systolic 130 mmHg Results Name Result Date Reference Range Unit Abnormality Flag CBC ----Lymphs 8 20160221 % ----Neutrophils 85 20160221 % ----Baso (Absolute) 0.2 [id number] 0.0-0.2 x10E3/uL ----Hemoglobin 14.9 53964938 12.6-17.7 g/dL ----Eos (Absolute) 0.4 [id number] 0.0-0.4 x10E3/uL ----Hematocrit 42.3 77402575 37.5-51.0 % ----Monocytes(Absolute) 0.7 09341025 0.1-0.9 x10E3/uL ----MCV 89 74877018 79-97 fL ----Lymphs (Absolute) 1.5 48991704 0.7-3.1 x10E3/uL ----MCH 31.4 [id number] 26.6-33.0 pg ----Neutrophils (Absolute) 15.8 23254395 1.4-7.0 x10E3/uL H ----MCHC 35.2 80761969 31.5-35.7 g/dL ----NRBC 0 24600507 0 - 0 % ----Basos 1 20160221 % ----RDW 15.3 34038172 12.3-15.4 % ----Hematology Comments: Note: 20160221 ----WBC 18.6 58198017 3.4-10.8 x10E3/uL H ----Platelets 259 55025023 150-379 x10E3/uL ----Eos 2 20160221 % ----RBC 4.74 [id number] 4.14-5.80 x10E6/uL ----Monocytes 4 20160221 % MAGNESIUM, SERUM ----Magnesium, Serum 2.0 27941544 1.6-2.3 mg/dL TSH ----TSH 2.730 62283930 0.450-4.500 uIU/mL Summary Purpose eClinicalWorks Submission
== END 2016-08-05 10:47 | disposition home or self-care (01) ==
LOC: EDUNIT# 07:19 → ER 07:21
DX: R42 Dizziness and giddiness (principal); E83.42 Hypomagnesemia; E11.9 Type 2 diabetes mellitus without complications; E66.01 Morbid (severe) obesity due to excess calories; D68.51 Activated protein C resistance; I10 Essential (primary) hypertension; Z79.82 Long term (current) use of aspirin; Z79.84 Long term (current) use of oral hypoglycemic drugs; Z79.899 Other long term (current) drug therapy; Z86.718 Personal history of other venous thrombosis and embolism
CPT/HCPCS: 36415; 70450; 71010; 71275; 80053; 81000; 82550; 82553; 82962; 83690; 83735; 83880; 84443; 84484; 85025; 85610; 85730; 93005; 93041; 96374

== ENCOUNTER 2016-08-08 10:50 | Outpatient (RCR) | payer BC, OTHER ==
[~2016-08-08 10:50] MED LIST changes: +LISI-556; +MECL-106 PO; +METF500T8; +ONDA4TAB8 PO; +TACR100O2
== END 2016-08-14 | disposition home or self-care (01) ==
LOC: WOUNDCARE 10:50
PROVIDERS: ATTEND Surgery
DX: L97.222 Non-pressure chronic ulcer of left calf with fat layer exposed (principal); I70.242 Atherosclerosis of native arteries of left leg with ulceration of calf; I87.032 Postthrombotic syndrome with ulcer and inflammation of left lower extremity; D68.51 Activated protein C resistance; L92.1 Necrobiosis lipoidica, not elsewhere classified; I87.2 Venous insufficiency (chronic) (peripheral)
CPT/HCPCS: 11042; 87070; 87075; 87077; 87186; 87205; 99212

== ENCOUNTER → 2016-08-22 | Outpatient (CLI) | payer BC ==
[2016-08-22 12:50] LABS: BASOPHILS % (AUTO) 0 % (0-10); EOSINOPHILS # (AUTO) 0.9 10^3/uL (0.0-0.3); EOSINOPHILS % (AUTO) 10 % (0-10); LYMPHOCYTES # (AUTO) 1.6 X 10^3 (1.0-4.0); LYMPHOCYTES % (AUTO) 18 % (12-44); MEAN CORPUSCULAR HEMOGLOBIN 30 PG (25-34); MEAN CORPUSCULAR HGB CONC 32 G/DL (32-36); MEAN CORPUSCULAR VOLUME 92 FL (80-99); MEAN PLATELET VOLUME 11.2 FL (7.4-10.4); MONOCYTES # (AUTO) 0.9 X 10^3 (0.0-1.0); MONOCYTES % (AUTO) 10 % (0-12); NEUTROPHILS # (AUTO) 5.7 X 10^3 (1.8-7.8); NEUTROPHILS % (AUTO) 62 % (42-75); PLATELET COUNT 250 10^3/uL (130-400); RED BLOOD COUNT 4.22 10^6/uL (4.35-5.85); RED CELL DISTRIBUTION WIDTH 14.3 % (10.0-14.5); WHITE BLOOD COUNT 9.1 10^3/uL (4.3-11.0)
[2016-08-22 13:13] LABS: ALANINE AMINOTRANSFERASE 20 U/L (0-55); ALBUMIN 3.4 G/DL (3.2-4.5); ANION GAP 10 MMOL/L (5-14); ASPARTATE AMINO TRANSFERASE 22 U/L (5-34); BILIRUBIN,TOTAL 0.7 MG/DL (0.1-1.0); BLOOD UREA NITROGEN 13 MG/DL (7-18); BUN/CREATININE RATIO 15; CALCIUM 8.7 MG/DL (8.5-10.1); CARBON DIOXIDE 22 MMOL/L (21-32); CHLORIDE 112 MMOL/L (98-107); CREATININE SERUM 0.84 MG/DL (0.60-1.30); GFR ESTIMATED > 60; GLUCOSE 87 MG/DL (70-105); POTASSIUM 3.6 MMOL/L (3.6-5.0); SODIUM 144 MMOL/L (135-145); TOTAL PROTEIN 6.5 G/DL (6.4-8.2)
== END ==
LOC: LAB 12:36
PROVIDERS: ATTEND Surgery
DX: L92.1 Necrobiosis lipoidica, not elsewhere classified (principal); L97.222 Non-pressure chronic ulcer of left calf with fat layer exposed; I87.032 Postthrombotic syndrome with ulcer and inflammation of left lower extremity; E11.622 Type 2 diabetes mellitus with other skin ulcer; I87.2 Venous insufficiency (chronic) (peripheral); D68.51 Activated protein C resistance
CPT/HCPCS: 36415; 80053; 83036; 85025

== ENCOUNTER 2016-11-15 12:21 | Outpatient (RCR) | payer BC, OTHER | END 2016-11-20 | disposition home or self-care (01) | LOC: WOUNDCARE 12:21 | PROVIDERS: ATTEND Surgery | DX: L97.222 Non-pressure chronic ulcer of left calf with fat layer exposed (principal); I70.242 Atherosclerosis of native arteries of left leg with ulceration of calf; I87.032 Postthrombotic syndrome with ulcer and inflammation of left lower extremity; D68.51 Activated protein C resistance; L92.1 Necrobiosis lipoidica, not elsewhere classified; I87.2 Venous insufficiency (chronic) (peripheral); E11.622 Type 2 diabetes mellitus with other skin ulcer | CPT/HCPCS: 11042; 29581; 87070; 87075; 87077; 87186; 87205 ==

== ENCOUNTER → 2016-11-22 | Outpatient (CLI) | payer BC ==
[2016-11-22 11:35] LABS: BASOPHILS % (AUTO) 0 % (0-10); EOSINOPHILS # (AUTO) 0.4 10^3/uL (0.0-0.3); EOSINOPHILS % (AUTO) 5 % (0-10); LYMPHOCYTES # (AUTO) 1.5 X 10^3 (1.0-4.0); LYMPHOCYTES % (AUTO) 18 % (12-44); MEAN CORPUSCULAR HEMOGLOBIN 28 PG (25-34); MEAN CORPUSCULAR HGB CONC 32 G/DL (32-36); MEAN CORPUSCULAR VOLUME 89 FL (80-99); MEAN PLATELET VOLUME 10.7 FL (7.4-10.4); MONOCYTES # (AUTO) 0.7 X 10^3 (0.0-1.0); MONOCYTES % (AUTO) 9 % (0-12); NEUTROPHILS # (AUTO) 5.7 X 10^3 (1.8-7.8); NEUTROPHILS % (AUTO) 68 % (42-75); PLATELET COUNT 266 10^3/uL (130-400); RED BLOOD COUNT 4.82 10^6/uL (4.35-5.85); RED CELL DISTRIBUTION WIDTH 13.9 % (10.0-14.5); WHITE BLOOD COUNT 8.4 10^3/uL (4.3-11.0)
[2016-11-22 11:53] LABS: ALANINE AMINOTRANSFERASE 26 U/L (0-55); ALBUMIN 3.9 GM/DL (3.2-4.5); ANION GAP 10 MMOL/L (5-14); ASPARTATE AMINO TRANSFERASE 23 U/L (5-34); BILIRUBIN,TOTAL 0.6 MG/DL (0.1-1.0); BLOOD UREA NITROGEN 12 MG/DL (7-18); BUN/CREATININE RATIO 14; CALCIUM 9.6 MG/DL (8.5-10.1); CARBON DIOXIDE 22 MMOL/L (21-32); CHLORIDE 110 MMOL/L (98-107); CREATININE SERUM 0.87 MG/DL (0.60-1.30); GFR ESTIMATED > 60; GLUCOSE 96 MG/DL (70-105); POTASSIUM 3.8 MMOL/L (3.6-5.0); SODIUM 142 MMOL/L (135-145); TOTAL PROTEIN 7.7 GM/DL (6.4-8.2)
== END ==
LOC: LAB 11:21
PROVIDERS: ATTEND Surgery
DX: L97.222 Non-pressure chronic ulcer of left calf with fat layer exposed (principal); I87.032 Postthrombotic syndrome with ulcer and inflammation of left lower extremity; I87.2 Venous insufficiency (chronic) (peripheral); E11.622 Type 2 diabetes mellitus with other skin ulcer
CPT/HCPCS: 36415; 80053; 83036; 85025

== ENCOUNTER 2016-12-10 11:06 | Outpatient (RCR) | payer BC, OTHER | END 2016-12-10 16:00 | disposition home or self-care (01) | LOC: WOUNDCARE 11:06 | PROVIDERS: ATTEND Surgery | DX: L97.222 Non-pressure chronic ulcer of left calf with fat layer exposed (principal); I70.242 Atherosclerosis of native arteries of left leg with ulceration of calf; I87.032 Postthrombotic syndrome with ulcer and inflammation of left lower extremity; D68.51 Activated protein C resistance; L92.1 Necrobiosis lipoidica, not elsewhere classified; I87.2 Venous insufficiency (chronic) (peripheral) | CPT/HCPCS: 11042; 15271; 29581 ==

== ENCOUNTER → 2016-12-12 | Outpatient (CLI) | payer BC | LOC: WOUNDCARE 10:52 | PROVIDERS: ATTEND Surgery | DX: L97.222 Non-pressure chronic ulcer of left calf with fat layer exposed (principal); I87.032 Postthrombotic syndrome with ulcer and inflammation of left lower extremity; I87.2 Venous insufficiency (chronic) (peripheral); E11.622 Type 2 diabetes mellitus with other skin ulcer; D68.51 Activated protein C resistance | CPT/HCPCS: 11042 ==

== ENCOUNTER → 2016-12-17 | Outpatient (CLI) | payer BC | LOC: WOUNDCARE 11:08 | PROVIDERS: ATTEND Surgery | DX: L97.222 Non-pressure chronic ulcer of left calf with fat layer exposed (principal); I87.2 Venous insufficiency (chronic) (peripheral); E11.622 Type 2 diabetes mellitus with other skin ulcer | CPT/HCPCS: 29581 ==

== ENCOUNTER → 2016-12-19 | Outpatient (CLI) | payer BC, OTHER | LOC: WOUNDCARE 10:55 | PROVIDERS: ATTEND Surgery | DX: E11.622 Type 2 diabetes mellitus with other skin ulcer (principal); L97.222 Non-pressure chronic ulcer of left calf with fat layer exposed; I87.032 Postthrombotic syndrome with ulcer and inflammation of left lower extremity; I87.2 Venous insufficiency (chronic) (peripheral); D68.51 Activated protein C resistance | CPT/HCPCS: 15271 ==

== ENCOUNTER → 2016-12-21 | Outpatient (CLI) | payer BC | LOC: WOUNDCARE 11:05 | PROVIDERS: ATTEND Surgery | DX: E11.622 Type 2 diabetes mellitus with other skin ulcer (principal); L97.222 Non-pressure chronic ulcer of left calf with fat layer exposed; I87.2 Venous insufficiency (chronic) (peripheral) | CPT/HCPCS: 29581 ==

== ENCOUNTER → 2016-12-26 | Outpatient (CLI) | payer BC | LOC: WOUNDCARE 11:00 | PROVIDERS: ATTEND Surgery | DX: E11.622 Type 2 diabetes mellitus with other skin ulcer (principal); L97.222 Non-pressure chronic ulcer of left calf with fat layer exposed; I87.2 Venous insufficiency (chronic) (peripheral); I87.032 Postthrombotic syndrome with ulcer and inflammation of left lower extremity; D68.51 Activated protein C resistance | CPT/HCPCS: 15271 ==

== ENCOUNTER → 2016-12-28 | Outpatient (CLI) | payer BC | LOC: WOUNDCARE 13:08 | PROVIDERS: ATTEND Surgery | DX: E11.622 Type 2 diabetes mellitus with other skin ulcer (principal); L97.222 Non-pressure chronic ulcer of left calf with fat layer exposed; I87.2 Venous insufficiency (chronic) (peripheral) | CPT/HCPCS: 29581 ==

== ENCOUNTER → 2017-01-02 | Outpatient (CLI) | payer BC, OTHER | LOC: WOUNDCARE 10:53 | PROVIDERS: ATTEND Surgery | DX: E11.622 Type 2 diabetes mellitus with other skin ulcer (principal); L97.222 Non-pressure chronic ulcer of left calf with fat layer exposed; I87.2 Venous insufficiency (chronic) (peripheral); I87.032 Postthrombotic syndrome with ulcer and inflammation of left lower extremity; D68.51 Activated protein C resistance | CPT/HCPCS: 15271 ==

== ENCOUNTER → 2017-01-04 | Outpatient (CLI) | payer BC | LOC: WOUNDCARE 11:27 | PROVIDERS: ATTEND Surgery | DX: E11.622 Type 2 diabetes mellitus with other skin ulcer (principal); L97.222 Non-pressure chronic ulcer of left calf with fat layer exposed; I87.2 Venous insufficiency (chronic) (peripheral) | CPT/HCPCS: 29581 ==

== ENCOUNTER → 2017-01-09 | Outpatient (CLI) | payer BC, OTHER | LOC: WOUNDCARE 08:51 | PROVIDERS: ATTEND Surgery | DX: E11.622 Type 2 diabetes mellitus with other skin ulcer (principal); L97.222 Non-pressure chronic ulcer of left calf with fat layer exposed; I87.032 Postthrombotic syndrome with ulcer and inflammation of left lower extremity; I87.2 Venous insufficiency (chronic) (peripheral); D68.51 Activated protein C resistance | CPT/HCPCS: 15271 ==

== ENCOUNTER → 2017-01-11 | Outpatient (CLI) | payer BC | LOC: WOUNDCARE 11:12 | PROVIDERS: ATTEND Surgery | DX: E11.622 Type 2 diabetes mellitus with other skin ulcer (principal); L97.222 Non-pressure chronic ulcer of left calf with fat layer exposed; I87.032 Postthrombotic syndrome with ulcer and inflammation of left lower extremity; I87.2 Venous insufficiency (chronic) (peripheral); D68.51 Activated protein C resistance | CPT/HCPCS: 29581 ==

== ENCOUNTER → 2017-01-16 | Outpatient (CLI) | payer BC | LOC: WOUNDCARE 08:52 | PROVIDERS: ATTEND Surgery | DX: E11.622 Type 2 diabetes mellitus with other skin ulcer (principal); L97.222 Non-pressure chronic ulcer of left calf with fat layer exposed; I87.032 Postthrombotic syndrome with ulcer and inflammation of left lower extremity; I87.2 Venous insufficiency (chronic) (peripheral); D68.51 Activated protein C resistance | CPT/HCPCS: 29581 ==

== ENCOUNTER → 2017-01-23 | Outpatient (CLI) | payer BC, OTHER | LOC: WOUNDCARE 08:51 | PROVIDERS: ATTEND Surgery | DX: E11.622 Type 2 diabetes mellitus with other skin ulcer (principal); L97.222 Non-pressure chronic ulcer of left calf with fat layer exposed; I87.032 Postthrombotic syndrome with ulcer and inflammation of left lower extremity; I87.2 Venous insufficiency (chronic) (peripheral); D68.51 Activated protein C resistance | CPT/HCPCS: 99212 ==

== ENCOUNTER → 2017-02-18 | Outpatient (CLI) | payer BC | LOC: WOUNDCARE 14:23 | PROVIDERS: ATTEND Surgery | DX: E11.622 Type 2 diabetes mellitus with other skin ulcer (principal); L97.222 Non-pressure chronic ulcer of left calf with fat layer exposed; I87.032 Postthrombotic syndrome with ulcer and inflammation of left lower extremity; I87.332 Chronic venous hypertension (idiopathic) with ulcer and inflammation of left lower extremity; D68.51 Activated protein C resistance | CPT/HCPCS: 11042; 87070; 87075; 87205 ==

== ENCOUNTER → 2017-02-25 | Outpatient (CLI) | payer BC | LOC: WOUNDCARE 15:25 | PROVIDERS: ATTEND Surgery | DX: E11.622 Type 2 diabetes mellitus with other skin ulcer (principal); L97.222 Non-pressure chronic ulcer of left calf with fat layer exposed; I87.032 Postthrombotic syndrome with ulcer and inflammation of left lower extremity; I87.332 Chronic venous hypertension (idiopathic) with ulcer and inflammation of left lower extremity; D68.51 Activated protein C resistance | CPT/HCPCS: 11042 ==

== ENCOUNTER → 2017-03-04 | Outpatient (CLI) | payer BC | LOC: WOUNDCARE 15:30 | PROVIDERS: ATTEND Surgery | DX: L97.222 Non-pressure chronic ulcer of left calf with fat layer exposed (principal); I87.332 Chronic venous hypertension (idiopathic) with ulcer and inflammation of left lower extremity; E11.622 Type 2 diabetes mellitus with other skin ulcer; D68.51 Activated protein C resistance | CPT/HCPCS: 11042 ==

== ENCOUNTER → 2017-03-25 | Outpatient (CLI) | payer BC | LOC: WOUNDCARE 14:57 | PROVIDERS: ATTEND Surgery | DX: E11.622 Type 2 diabetes mellitus with other skin ulcer (principal); L97.222 Non-pressure chronic ulcer of left calf with fat layer exposed; I87.332 Chronic venous hypertension (idiopathic) with ulcer and inflammation of left lower extremity; D68.51 Activated protein C resistance | CPT/HCPCS: 11042 ==

== ENCOUNTER → 2017-04-01 | Outpatient (CLI) | payer BC | LOC: WOUNDCARE 14:35 | PROVIDERS: ATTEND Surgery | DX: L97.222 Non-pressure chronic ulcer of left calf with fat layer exposed (principal); I87.032 Postthrombotic syndrome with ulcer and inflammation of left lower extremity; I87.332 Chronic venous hypertension (idiopathic) with ulcer and inflammation of left lower extremity; E11.622 Type 2 diabetes mellitus with other skin ulcer; D68.51 Activated protein C resistance | CPT/HCPCS: 11042 ==

== ENCOUNTER → 2017-04-08 | Outpatient (CLI) | payer BC | LOC: WOUNDCARE 14:28 | PROVIDERS: ATTEND Surgery | DX: E11.622 Type 2 diabetes mellitus with other skin ulcer (principal); L97.222 Non-pressure chronic ulcer of left calf with fat layer exposed; I87.032 Postthrombotic syndrome with ulcer and inflammation of left lower extremity; I87.332 Chronic venous hypertension (idiopathic) with ulcer and inflammation of left lower extremity; D68.51 Activated protein C resistance | CPT/HCPCS: 11042; 11043; 87070; 87075; 87205 ==

== ENCOUNTER → 2017-04-15 | Outpatient (CLI) | payer BC | LOC: WOUNDCARE 12:44 | PROVIDERS: ATTEND Surgery | DX: E11.622 Type 2 diabetes mellitus with other skin ulcer (principal); L97.222 Non-pressure chronic ulcer of left calf with fat layer exposed; I87.332 Chronic venous hypertension (idiopathic) with ulcer and inflammation of left lower extremity; D68.51 Activated protein C resistance | CPT/HCPCS: 15271 ==

== ENCOUNTER → 2017-04-22 | Outpatient (CLI) | payer BC | LOC: WOUNDCARE 14:07 | PROVIDERS: ATTEND Surgery | DX: E11.622 Type 2 diabetes mellitus with other skin ulcer (principal); L97.222 Non-pressure chronic ulcer of left calf with fat layer exposed; I87.032 Postthrombotic syndrome with ulcer and inflammation of left lower extremity; I87.332 Chronic venous hypertension (idiopathic) with ulcer and inflammation of left lower extremity; D68.51 Activated protein C resistance | CPT/HCPCS: 15271 ==

== ENCOUNTER → 2017-04-29 | Outpatient (CLI) | payer BC | LOC: WOUNDCARE 14:12 | PROVIDERS: ATTEND Surgery | DX: E11.622 Type 2 diabetes mellitus with other skin ulcer (principal); I87.032 Postthrombotic syndrome with ulcer and inflammation of left lower extremity; I87.332 Chronic venous hypertension (idiopathic) with ulcer and inflammation of left lower extremity; L97.222 Non-pressure chronic ulcer of left calf with fat layer exposed; D68.51 Activated protein C resistance | CPT/HCPCS: 11042 ==

== ENCOUNTER → 2017-05-07 | Outpatient (CLI) | payer BC | LOC: WOUNDCARE 14:05 | PROVIDERS: ATTEND Surgery | DX: E11.622 Type 2 diabetes mellitus with other skin ulcer (principal); I87.332 Chronic venous hypertension (idiopathic) with ulcer and inflammation of left lower extremity; L97.222 Non-pressure chronic ulcer of left calf with fat layer exposed; D68.51 Activated protein C resistance | CPT/HCPCS: 11042 ==

== ENCOUNTER → 2017-05-14 | Outpatient (CLI) | payer BC | LOC: WOUNDCARE 14:04 | PROVIDERS: ATTEND Surgery | DX: E11.622 Type 2 diabetes mellitus with other skin ulcer (principal); D68.51 Activated protein C resistance; L97.222 Non-pressure chronic ulcer of left calf with fat layer exposed; I87.332 Chronic venous hypertension (idiopathic) with ulcer and inflammation of left lower extremity | CPT/HCPCS: 11042 ==

== ENCOUNTER → 2017-05-20 | Outpatient (CLI) | payer BC | LOC: WOUNDCARE 14:13 | PROVIDERS: ATTEND Surgery | DX: E11.622 Type 2 diabetes mellitus with other skin ulcer (principal); I87.332 Chronic venous hypertension (idiopathic) with ulcer and inflammation of left lower extremity; L97.222 Non-pressure chronic ulcer of left calf with fat layer exposed; I87.032 Postthrombotic syndrome with ulcer and inflammation of left lower extremity; D68.51 Activated protein C resistance ==

== ENCOUNTER → 2017-05-31 | Outpatient (CLI) | payer BC | LOC: WOUNDCARE 10:21 | PROVIDERS: ATTEND Surgery | DX: L03.116 Cellulitis of left lower limb (principal); L97.222 Non-pressure chronic ulcer of left calf with fat layer exposed; I87.332 Chronic venous hypertension (idiopathic) with ulcer and inflammation of left lower extremity; E11.622 Type 2 diabetes mellitus with other skin ulcer; D68.51 Activated protein C resistance | CPT/HCPCS: 11042; 87070; 87075; 87077; 87186; 87205 ==

== ENCOUNTER → 2017-06-07 | Outpatient (CLI) | payer BC | LOC: WOUNDCARE 08:22 | PROVIDERS: ATTEND Surgery | DX: E11.622 Type 2 diabetes mellitus with other skin ulcer (principal); D68.51 Activated protein C resistance; I87.332 Chronic venous hypertension (idiopathic) with ulcer and inflammation of left lower extremity; L97.222 Non-pressure chronic ulcer of left calf with fat layer exposed | CPT/HCPCS: 11042 ==

== ENCOUNTER → 2017-06-12 | Outpatient (CLI) | payer BC | LOC: WOUNDCARE 14:04 | PROVIDERS: ATTEND Surgery | DX: E11.622 Type 2 diabetes mellitus with other skin ulcer (principal); I87.332 Chronic venous hypertension (idiopathic) with ulcer and inflammation of left lower extremity; L97.222 Non-pressure chronic ulcer of left calf with fat layer exposed; D68.51 Activated protein C resistance | CPT/HCPCS: 11042 ==

== ENCOUNTER → 2017-06-19 | Outpatient (CLI) | payer BC | LOC: WOUNDCARE 13:43 | PROVIDERS: ATTEND Surgery | DX: E11.622 Type 2 diabetes mellitus with other skin ulcer (principal); L97.222 Non-pressure chronic ulcer of left calf with fat layer exposed; I87.332 Chronic venous hypertension (idiopathic) with ulcer and inflammation of left lower extremity; I87.032 Postthrombotic syndrome with ulcer and inflammation of left lower extremity; D68.51 Activated protein C resistance | CPT/HCPCS: 11042 ==

== ENCOUNTER → 2017-06-26 | Outpatient (CLI) | payer BC | LOC: WOUNDCARE 13:30 | PROVIDERS: ATTEND Surgery | DX: E11.622 Type 2 diabetes mellitus with other skin ulcer (principal); L97.222 Non-pressure chronic ulcer of left calf with fat layer exposed; I87.332 Chronic venous hypertension (idiopathic) with ulcer and inflammation of left lower extremity; D68.51 Activated protein C resistance | CPT/HCPCS: 11042 ==

== ENCOUNTER → 2017-07-03 | Outpatient (CLI) | payer BC | LOC: WOUNDCARE 13:11 | PROVIDERS: ATTEND Surgery | DX: E11.622 Type 2 diabetes mellitus with other skin ulcer (principal); L97.222 Non-pressure chronic ulcer of left calf with fat layer exposed; I87.332 Chronic venous hypertension (idiopathic) with ulcer and inflammation of left lower extremity; I87.032 Postthrombotic syndrome with ulcer and inflammation of left lower extremity; D68.51 Activated protein C resistance | CPT/HCPCS: 11042 ==

== ENCOUNTER → 2017-07-10 | Outpatient (CLI) | payer BC | LOC: WOUNDCARE 13:15 | PROVIDERS: ATTEND Surgery | DX: E11.622 Type 2 diabetes mellitus with other skin ulcer (principal); L97.222 Non-pressure chronic ulcer of left calf with fat layer exposed; I87.332 Chronic venous hypertension (idiopathic) with ulcer and inflammation of left lower extremity; I87.032 Postthrombotic syndrome with ulcer and inflammation of left lower extremity; D68.51 Activated protein C resistance | CPT/HCPCS: 11042 ==

== ENCOUNTER → 2017-07-17 | Outpatient (CLI) | payer BC | LOC: WOUNDCARE 13:26 | PROVIDERS: ATTEND Surgery | DX: L97.222 Non-pressure chronic ulcer of left calf with fat layer exposed (principal); I87.332 Chronic venous hypertension (idiopathic) with ulcer and inflammation of left lower extremity; E11.622 Type 2 diabetes mellitus with other skin ulcer; D68.51 Activated protein C resistance | CPT/HCPCS: 29581 ==

== ENCOUNTER → 2017-07-24 | Outpatient (CLI) | payer BC | LOC: WOUNDCARE 13:44 | PROVIDERS: ATTEND Surgery | DX: E11.622 Type 2 diabetes mellitus with other skin ulcer (principal); L97.222 Non-pressure chronic ulcer of left calf with fat layer exposed; I87.332 Chronic venous hypertension (idiopathic) with ulcer and inflammation of left lower extremity; D68.51 Activated protein C resistance | CPT/HCPCS: 99212 ==

== ENCOUNTER 2018-03-02 10:58 | Emergency (ER) | payer BC ==
[~2018-03-02] VITALS: Ht 180.3 cm; Wt 192.8 kg
--- OUTSIDE RECORDS SUMMARY | 2018-03-02 11:20 | XMS REPORT | Clinical Summary ---
Author Author [facility] Organization [facility] Address Unknown Phone Unavailable Care Team Providers Care Costume Design Teacher Name Role Phone Humera Jarvis MD PCP Aram Todd MD [phone] Source Comments Some departments are not documenting in the electronic medical record. If you do not see the information that you expected, contact Release of Information in the Health Information Management department at [phone] for further assistance in locating additional records.[facility] Allergies Active Allergy Reactions Severity Noted Date Comments Penicillins UNKNOWN Low 03/26/2017 Current Medications Prescription Sig. Disp. Refills Start End Date Status Date pravastatin (PRAVACHOL) Take 10 mg by mouth at Active 10 mg tablet bedtime daily. LISINOPRIL PO Take 2.5 mg by mouth. Active aspirin 325 mg tablet Take 325 mg by mouth Active daily. Take with food. MEDICAL SUPPLY, Use as directed. 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 Obesity, morbid ([facility]) 03/28/2017 Diabetes mellitus with peripheral vascular disease ([facility]) 03/28/2017 Family History Medical History Relation Name Comments None Reported Brother Hypertension Father Diabetes Maternal Grandfather Hypertension Maternal Grandfather Stroke Maternal Grandmother None Reported Mother None Reported Paternal Grandfather None Reported Paternal Grandmother None Reported Sister Relation Name Status Comments Brother 1 Father Maternal Grandfather Maternal Grandmother Mother Paternal Grandfather Paternal Grandmother Sister 1 Social History Tobacco Use Types Packs/Day Years Used Date Never Smoker Smokeless Tobacco: Never Used Alcohol Use Drinks/Week oz/Week Comments Yes Sex Assigned at Date Recorded Not on file Last Filed Vital Signs Vital Sign Reading Time Taken Blood Pressure 142/70 03/26/2017 12:24 PM [facility] Pulse - - Temperature - - Respiratory Rate - - Oxygen Saturation - - Inhaled Oxygen - - Concentration Weight 172.4 kg (380 lb) 03/26/2017 12:24 PM [facility] Height 182.9 cm (6') 03/26/2017 12:24 PM [facility] Body Mass Index 51.54 03/26/2017 12:24 PM [facility] Plan of Treatment Health Maintenance Due Date Last Done Comments PHYSICAL (COMPREHENSIVE) 09/09/1987 EXAM PERTUSSIS VACCINE 09/09/1991 HIV SCREENING 09/09/1995 TETANUS VACCINE 1997 DILATED EYE EXAM 1998 FOOT EXAM 1998 HBA1C 1998 MICROALBUMIN 1998 PNEUMONIA VACCINE (DM) 1998 INFLUENZA VACCINE 12/11/2017 Results Not on filefrom Last 3 Months
--- OUTSIDE RECORDS SUMMARY | 2018-03-02 11:21 | XMS REPORT ---
Author Author AMELIA JORDAN Organization [facility] Address [address] [place] [address] Care Team Providers Care T Rail Turner Name Role Phone AMELIA JORDAN Unavailable PROBLEMS Type Condition ICD9-CM Code LSZ87-OO Code Onset Dates Condition Status SNOMED Code Problem Factor V Leiden D68.51 Active 480945066 Problem BRAD (obstructive sleep apnea) G47.33 Active 61841897 Problem Mixed hyperlipidemia E78.2 Active 731100871 Problem Leg ulcer, left L97.929 Active 36221632 Problem Chronic stasis dermatitis I83.10 Active 51117250 Problem PVD (peripheral vascular disease) I73.9 Active 269104172 Problem Type 2 diabetes mellitus with diabetic dermatitis, 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 40108902 ALLERGIES Substance Reaction Event Type Date Status Penicillin G Benzathine hives Drug Allergy Jul, Active ENCOUNTERS Encounter Location Date Diagnosis [place] [id number] [place] [address] 01913- 5747 Jul, Type 2 diabetes mellitus with diabetic dermatitis, 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 ; Mixed hyperlipidemia E78.2 ; PVD ( peripheral vascular disease) I73.9 ; BRAD (obstructive sleep apnea) G47.33 and BMI 50.0-59.9, adult Z68.43 [place] [id number] [place] [address] 82894- 7989 Apr, Type 2 diabetes mellitus with diabetic dermatitis, 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 and Mixed hyperlipidemia E78.2 [place] [id number] [place] [address] 10793- 9619 Jan, Type 2 diabetes mellitus with diabetic dermatitis, 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 ; Mixed hyperlipidemia E78.2 ; PVD ( peripheral vascular disease) I73.9 and Fear of flying F40.243 [facility] [address] [id number] [place] [address] [id number] 14 Jan, 2017 Encounter for immunization Z23 [facility] [id number] [place] [address] [id number] 13 Jan, 2017 Encounter for immunization Z23 [facility] [address] [address]- [address] September, Leg ulcer, left L97.929 [facility] [address] [id number] [place] [address] 07057- 8741 Jul, [place] [address] [address]- 2017 Jun, Blurry vision, right eye H53.8 [place] [address] [id number] May, Pneumonia of both lower lobes due to infectious organism J18.9 and Cough in adult patient R05 [facility] [id number] [place] [address] [id number] Feb, Encounter for immunization Z23 [place] [address] [place] [id number] [place] [address] 96013- 1933 Feb, Chest heaviness R07.89 ; Dizziness R42 ; Mixed hyperlipidemia E78.2 and PVD (peripheral vascular disease) I73.9 [place] [address] [address] [id number] [place] [address] 04914- 8146 Jan, [facility] [address] [id number] [place] [address] 80375- 6027 Jan, [place] [address] [place] [id number] [place] [address] 73248- 9295 Jan, [facility] [address] [id number] [place] [address] 85178- 4026 Jan, Chronic stasis dermatitis I83.10 ; Factor V Leiden D68.51 ; Leg ulcer, left L97.929 and Type 2 diabetes mellitus with diabetic dermatitis, 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 [place] [address] [place] [id number] [place] [address] 09485- 1062 Jan, [place] [address] [place] [id number] [place] [address] 22235- 3381 September, [place] [address] [address]68- [address] Jul, [place] [address] 82559- 3203 Jul, Prediabetes R73.09 ; Chronic stasis dermatitis I83.10 ; Factor V Leiden D68.51 and Leg ulcer, left L97.929 [place] [address] [address] [id number] [place] [address] 79149- 1723 Apr, Prediabetes R73.09 ; Chronic stasis dermatitis I83.10 and Factor V Leiden D68.51 [place] [address] [address] [id number] [place] [address] 03202- 7995 Apr, Prediabetes R73.09 ; Chronic stasis dermatitis I83.10 and Factor V Leiden D68.51 [place] [address] [place] [id number] [place] [address] 27193- 6532 Mar, Prediabetes R73.09 [place] [address] [address] [id number] [place] [address] 37835- 9902 Mar, Edema of left lower extremity R60.0 and Factor V Leiden D68.51 [facility] [id number] [place] [address] [id number] Dec, Dental examination V72.2 [facility] [id number] [place] [address] [id number] Dec, Dental examination V72.2 IMMUNIZATIONS No Known Immunizations SOCIAL HISTORY Never Assessed REASON FOR VISIT Diabetes--tcuppettRN PLAN OF CARE Activity Details Follow Up 3 Months Reason:DM VITAL SIGNS Height 72 in 2017-07-17 Weight 397.7 lbs 2017-07-17 Temperature 97.6 degrees Fahrenheit 2017-07-17 Heart Rate 76 bpm 2017-07-17 Respiratory Rate 20 2017-07-17 BMI 53.93 kg/m2 2017-07-17 Blood pressure systolic 132 mmHg 2017-07-17 Blood pressure diastolic 90 mmHg 2017-07-17 MEDICATIONS Medication Instructions Dosage Frequency Start Date End Date Duration Status Aspirin 325 MG Orally Once a day 1 tablet 24h Active MetFORMIN HCl ER 500 mg Orally 2 times a day 2 tablets 12h 90 days Active Lisinopril 5 mg Orally Once a day 1 tablet 24h 90 days Active Pravastatin Sodium 10 mg Orally Once a day 1 tablet 24h 90 days Active RESULTS No Results PROCEDURES Procedure Date Ordered Result Body Site GLYCATED HEMOGLOBIN TEST July 17, 2017 MICROALBUMIN, SEMIQUANT July 17, 2017 MICROALBUMIN, QUANTITATIVE July 17, 2017 ASSAY OF URINE CREATININE July 17, 2017 COMPREHEN METABOLIC PANEL July 17, 2017 VENIPUNCT, ROUTINE* July 17, 2017 LIPID PANEL July 17, 2017 INSTRUCTIONS MEDICATIONS ADMINISTERED No Known Medications MEDICAL (GENERAL) HISTORY Type Description Date Medical History Factor 5 Leiden Medical History Prediabetes A1C5.21 Mar 2015 Medical History Mild Cardiomegly Stress Test Surgical History [place] teeth extraction Surgical History Venous Ablation LLE Hospitalization History blood clot 2011
--- OUTSIDE RECORDS SUMMARY | 2018-03-02 11:21 | XMS REPORT ---
Author Author AMELIA JORDAN Organization [facility] Address [address] [place] [address] Care Team Providers Care Sheet Heater Name Role Phone AMELIA JORDAN Unavailable PROBLEMS Type Condition ICD9-CM Code GGI04-BI Code Onset Dates Condition Status SNOMED Code Problem Factor V Leiden D68.51 Active 639298028 Problem BRAD (obstructive sleep apnea) G47.33 Active 52426627 Problem Mixed hyperlipidemia E78.2 Active 446094768 Problem Leg ulcer, left L97.929 Active 42610198 Problem Chronic stasis dermatitis I83.10 Active 78098389 Problem PVD (peripheral vascular disease) I73.9 Active 242220942 Problem Type 2 diabetes mellitus with diabetic dermatitis, 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 90266200 ALLERGIES Substance Reaction Event Type Date Status Penicillin G Benzathine hives Drug Allergy Jan, Active ENCOUNTERS Encounter Location Date Diagnosis [place] [id number] [place] [address] 50853- 1413 Jul, Type 2 diabetes mellitus with diabetic dermatitis, 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 ; Mixed hyperlipidemia E78.2 ; PVD ( peripheral vascular disease) I73.9 ; BRAD (obstructive sleep apnea) G47.33 and BMI 50.0-59.9, adult Z68.43 [place] [id number] [place] [address] 11931- 8860 Apr, Type 2 diabetes mellitus with diabetic dermatitis, 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 and Mixed hyperlipidemia E78.2 [place] [id number] [place] [address] 68334- 1526 Jan, Type 2 diabetes mellitus with diabetic dermatitis, 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 ; Mixed hyperlipidemia E78.2 ; PVD ( peripheral vascular disease) I73.9 and Fear of flying F40.243 [facility] [address] [place] [id number] [place] [address] [id number] 14 Jan, 2017 Encounter for immunization Z23 [facility] [address] [id number] [place] [address] [id number] 13 Jan, 2017 Encounter for immunization Z23 [facility] [address] 7[address]- [address] September, Leg ulcer, left L97.929 [facility] [address] [place] [id number] [place] [address] 71429- 1022 Jul, [place] [address] 20878- 2470 Jun, Blurry vision, right eye H53.8 [place] [address] [id number] May, Pneumonia of both lower lobes due to infectious organism J18.9 and Cough in adult patient R05 [facility] [address] [place] [id number] [place] [address] [id number] Feb, Encounter for immunization Z23 [place] [address] [place] [id number] [place] [address] 92567- 7358 Feb, Chest heaviness R07.89 ; Dizziness R42 ; Mixed hyperlipidemia E78.2 and PVD (peripheral vascular disease) I73.9 [place] [address] [place] [id number] [place] [address] 80834- 9148 Jan, [facility] [address] [place] [address] [id number] [place] [address] 52451- 6815 Jan, [place] [address] [place] [id number] [place] [address] 52438- 9101 Jan, [facility] [address] [place] [address] [id number] [place] [address] 90690- 3688 Jan, Chronic stasis dermatitis I83.10 ; Factor V Leiden D68.51 ; Leg ulcer, left L97.929 and Type 2 diabetes mellitus with diabetic dermatitis, 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 [place] [address] [place] [id number] [place] [address] 71553- 8914 Jan, [place] [address] [place] [id number] [place] [address] 38431- 2213 September, [place] [address] 98780- 7870 Jul, [place] [address] 83378- 9512 Jul, Prediabetes R73.09 ; Chronic stasis dermatitis I83.10 ; Factor V Leiden D68.51 and Leg ulcer, left L97.929 [place] [address] [id number] [place] [address] 47285- 1513 Apr, Prediabetes R73.09 ; Chronic stasis dermatitis I83.10 and Factor V Leiden D68.51 [place] [address] [place] [id number] [place] [address] 35732- 9687 Apr, Prediabetes R73.09 ; Chronic stasis dermatitis I83.10 and Factor V Leiden D68.51 [place] [address] [place] [id number] [place] [address] 52948- 5130 Mar, Prediabetes R73.09 [place] [address] [place] [id number] [place] [address] 07180- 9217 Mar, Edema of left lower extremity R60.0 and Factor V Leiden D68.51 [facility] [address] [id number] [place] [address] [id number] Dec, Dental examination V72.2 [facility] [address] [place] [id number] [place] [address] [id number] Dec, Dental examination V72.2 IMMUNIZATIONS No Known Immunizations SOCIAL HISTORY Never Assessed REASON FOR VISIT Diabetes f/u---DBennettRN PLAN OF CARE Activity Details Follow Up 3 Months Reason: VITAL SIGNS Height 72 in 2017-02-06 Weight 385 lbs 2017-02-06 Temperature 98.2 degrees Fahrenheit 2017-02-06 Heart Rate 70 bpm 2017-02-06 Respiratory Rate 20 2017-02-06 BMI 52.21 kg/m2 2017-02-06 Blood pressure systolic 124 mmHg 2017-02-06 Blood pressure diastolic 78 mmHg 2017-02-06 MEDICATIONS Medication Instructions Dosage Frequency Start Date End Date Duration Status Aspirin 325 MG Orally Once a day 1 tablet 24h Active Pravastatin Sodium 10 MG Orally Once a day 1 tablet 24h 30 Active Lisinopril 5 MG Orally Once a day 1 tablet 24h Active Alprazolam 0.5 MG Orally bid prn 1 tablet Jan, Active MetFORMIN HCl ER 500 MG TAKE TWO TABLETS BY MOUTH TWICE DAILY 30 Active RESULTS Name Result Date Reference Range A1C (IN HOUSE) 2017-02-06 A1C IN HOUSE 5.5 4.3 - 5.6 % Previous A1c 7.1 Lot [id number] Exp date 09/28 PROCEDURES Procedure Date Ordered Result Body Site GLYCATED HEMOGLOBIN TEST Feb 06, 2017 INSTRUCTIONS MEDICATIONS ADMINISTERED No Known Medications MEDICAL (GENERAL) HISTORY Type Description Date Medical History Factor 5 Leiden Medical History Prediabetes A1C5.21 Mar 2015 Medical History Mild Cardiomegly Stress Test Surgical History [place] teeth extraction Surgical History Venous Ablation LLE Hospitalization History blood clot 2011
--- OUTSIDE RECORDS SUMMARY | 2018-03-02 11:21 | XMS REPORT ---
Author Author ANDREW SONG [facility] Address [address] [place] [address] Care Team Providers Care Jigsawyer Name Role Phone ANDREW SONG Unavailable PROBLEMS Type Condition ICD9-CM Code EQY00-XY Code Onset Dates Condition Status SNOMED Code Problem Factor V Leiden D68.51 Active 668157029 Problem BRAD (obstructive sleep apnea) G47.33 Active 94428918 Problem Mixed hyperlipidemia E78.2 Active 838571273 Problem Leg ulcer, left L97.929 Active 16743168 Problem Chronic stasis dermatitis I83.10 Active 98375626 Problem PVD (peripheral vascular disease) I73.9 Active 599269966 Problem Type 2 diabetes mellitus with diabetic dermatitis, 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 69823532 ALLERGIES No Information ENCOUNTERS Encounter Location Date Diagnosis [place] [address] [address]- [address] Jan, Encounter for immunization Z23 [place] [address] 27467- 3829 Jul, Type 2 diabetes mellitus with diabetic dermatitis, 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 [address] 15900- 4856 September, Leg ulcer, left L97.929 [place] [address] 31170- 0184 Jul, [place] [address] 55635- 4449 Jun, Blurry vision, right eye H53.8 [facility] [address] [id number] May, Pneumonia of both lower lobes due to infectious organism J18.9 and Cough in adult patient R05 [facility] [address] [id number] Feb, Encounter for immunization Z23 [facility] [address] [place] [id number] [place] [address] 91237- 6557 Feb, Chest heaviness R07.89 ; Dizziness R42 ; Mixed hyperlipidemia E78.2 and PVD (peripheral vascular disease) I73.9 [facility] [address] [place] [id number] [place] [address] 33873- 3767 Jan, [facility] [address] [place] [id number] [place] [address] 67256- 3098 Jan, [place] [address] 37879- 2436 Jan, 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 [place] [address] [place] [id number] [place] [address] 10323- 0433 Jan, [place] [address] [place] [id number] [place] [address] 78650- 8977 September, [place] [address] [place] [id number] [place] [address] 39302- 5779 Jul, [place] [address] [place] [id number] [place] [address] 15420- 2725 Jul, Prediabetes R73.09 ; Chronic stasis dermatitis I83.10 ; Factor V Leiden D68.51 and Leg ulcer, left L97.929 [place] [address] [place] [id number] [place] [address] 31637- 0490 Apr, Prediabetes R73.09 ; Chronic stasis dermatitis I83.10 and Factor V Leiden D68.51 [place] [address] [place] [id number] [place] [address] 66367- 6373 Apr, Prediabetes R73.09 ; Chronic stasis dermatitis I83.10 and Factor V Leiden D68.51 [place] [address] [place] [id number] [place] [address] 88779- 5658 Mar, Prediabetes R73.09 [place] [address] [place] [address] 65852- 7019 Mar, Edema of left lower extremity R60.0 and Factor V Leiden D68.51 [facility] [address] [place] [id number] [place] [address] [id number] Dec, Dental examination V72.2 [facility] [id number] [place] [address] [phone] Dec, Dental examination V72.2 IMMUNIZATIONS Vaccine Route Administration Date Status FLULAVAL QUAD 0.5ML (6 MO & UP) 2018 IM Intramuscular Feb 05, 2018 Administered SOCIAL HISTORY Never Assessed REASON FOR VISIT Flu Vaccine-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 PLAN OF CARE Activity Details Follow Up prn Reason: VITAL SIGNS MEDICATIONS Unknown Medications RESULTS No Results PROCEDURES Procedure Date Ordered Result Body Site FLULAVAL QUAD 0.5ML (6 MO AND UP) 2017Feb 05, 2018 SINGLE IMMUNIZATION ADMIN Feb 05, 2018 INSTRUCTIONS MEDICATIONS ADMINISTERED No Known Medications MEDICAL (GENERAL) HISTORY Type Description Date Medical History Factor 5 Leiden Medical History Prediabetes A1C5.21 Mar 2015 Medical History Mild Cardiomegly Stress Test Surgical History [place] teeth extraction Surgical History Venous Ablation LLE Hospitalization History blood clot 2011
--- OUTSIDE RECORDS SUMMARY | 2018-03-02 11:21 | XMS REPORT ---
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 01104055 Problem Leg ulcer, left L97.929 Active 23885748 Problem Prediabetes R73.09 Active 2237347 Problem Factor V Leiden D68.51 Active 971260528 Problem Fear of flying F40.243 Active 144053938 Problem PVD (peripheral vascular disease) I73.9 Active 942007239 Problem New daily persistent headache G44.52 Active 061977896 Problem Chest heaviness R07.89 Active 48586762 Problem Dizziness R42 Active 805852845 Problem Mixed hyperlipidemia E78.2 Active 872129068 ALLERGIES No Information SOCIAL HISTORY Never Assessed PLAN OF CARE VITAL SIGNS MEDICATIONS No Known Medications RESULTS No Results PROCEDURES No Known procedures IMMUNIZATIONS No Known Immunizations MEDICAL (GENERAL) HISTORY Type Description Date Medical History Factor 5 Leiden Medical History Prediabetes A1C5.21 Mar 2015 Medical History Mild Cardiomegly Stress Test Surgical History [place] teeth extraction Hospitalization History blood clot 2011
--- OUTSIDE RECORDS SUMMARY | 2018-03-02 11:21 | XMS REPORT ---
Author Author AMELIA JORDAN Organization [facility] Address [address] [place] [address] Care Team Providers Care Multimedia Producer Name Role Phone AMELIA JORDAN Unavailable PROBLEMS Type Condition ICD9-CM Code KRC25-YF Code Onset Dates Condition Status SNOMED Code Problem Factor V Leiden D68.51 Active 366727876 Problem BRAD (obstructive sleep apnea) G47.33 Active 42652565 Problem Mixed hyperlipidemia E78.2 Active 666193540 Problem Leg ulcer, left L97.929 Active 69611438 Problem Chronic stasis dermatitis I83.10 Active 18314499 Problem PVD (peripheral vascular disease) I73.9 Active 672223813 Problem Type 2 diabetes mellitus with diabetic dermatitis, 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 23065509 ALLERGIES No Information ENCOUNTERS Encounter Location Date Diagnosis [place] [address] [place] [id number] [place] [address] 47433- 2160 Jul, Type 2 diabetes mellitus with diabetic dermatitis, 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 ; Mixed hyperlipidemia E78.2 ; PVD ( peripheral vascular disease) I73.9 ; BRAD (obstructive sleep apnea) G47.33 and BMI 50.0-59.9, adult Z68.43 [place] [id number] [place] [address] 70474- 8768 Apr, Type 2 diabetes mellitus with diabetic dermatitis, 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 and Mixed hyperlipidemia E78.2 [place] [id number] [place] [address] 24610- 2033 Jan, Type 2 diabetes mellitus with diabetic dermatitis, 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 ; Mixed hyperlipidemia E78.2 ; PVD ( peripheral vascular disease) I73.9 and Fear of flying F40.243 [facility] [address] [place] [address] [id number] 14 Jan, 2017 Encounter for immunization Z23 [facility] [address] [id number] 13 Jan, 2017 Encounter for immunization Z23 [place] [address] [phone]- 1351 September, Leg ulcer, left L97.929 [place] [address] [place] [id number] [place] [address] [phone]- 3023 Jul, [place] [address] 64643- 7818 Jun, Blurry vision, right eye H53.8 [place] [address] [id number] May, Pneumonia of both lower lobes due to infectious organism J18.9 and Cough in adult patient R05 [place] [address] [place] [id number] [place] [address] [id number] Feb, Encounter for immunization Z23 [place] [address] [place] [id number] [place] [address] 18353- 9678 Feb, Chest heaviness R07.89 ; Dizziness R42 ; Mixed hyperlipidemia E78.2 and PVD (peripheral vascular disease) I73.9 [place] [address] [place] [id number] [place] [address] 07703- 1111 Jan, [place] [address] [place] [id number] [place] [address] 94842- 4187 Jan, [place] [address] [place] [id number] [place] [address] 83785- 3662 Jan, [place] [address] [place] [id number] [place] [address] 97100- 3344 Jan, Chronic stasis dermatitis I83.10 ; Factor V Leiden D68.51 ; Leg ulcer, left L97.929 and Type 2 diabetes mellitus with diabetic dermatitis, 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 [place] [address] [place] [id number] [place] [address] 09713- 1953 Jan, [place] [address] [place] [id number] [place] [phone]- 5967 September, [place] [address] [place] [id number] [place] [address] 65748- 7739 Jul, [place] [address] 55956- 7049 Jul, Prediabetes R73.09 ; Chronic stasis dermatitis I83.10 ; Factor V Leiden D68.51 and Leg ulcer, left L97.929 [place] [address] [place] [id number] [place] [address] 38784- 3781 Apr, Prediabetes R73.09 ; Chronic stasis dermatitis I83.10 and Factor V Leiden D68.51 [place] [address] [place] [id number] [place] [address] 58595- 7759 Apr, Prediabetes R73.09 ; Chronic stasis dermatitis I83.10 and Factor V Leiden D68.51 [place] [address] [place] [id number] [place] [address] 21863- 2888 Mar, Prediabetes R73.09 [place] [address] [place] [id number] [place] [address] 45607- 5742 Mar, Edema of left lower extremity R60.0 and Factor V Leiden D68.51 [facility] [address] [place] [address] [id number] Dec, Dental examination V72.2 [facility] [address] [id number] Dec, Dental examination V72.2 IMMUNIZATIONS No Known Immunizations SOCIAL HISTORY Never Assessed REASON FOR VISIT Refill request PLAN OF CARE VITAL SIGNS MEDICATIONS Medication Instructions Dosage Frequency Start Date End Date Duration Status Pravastatin Sodium 10 mg Orally Once a day 1 tablet 24h 30 Active MetFORMIN HCl ER 500 mg TAKE TWO TABLETS BY MOUTH TWICE DAILY 30 Active Lisinopril 5 mg Orally Once a day 1 tablet 24h 30 days Active RESULTS No Results PROCEDURES No Known procedures INSTRUCTIONS MEDICATIONS ADMINISTERED No Known Medications MEDICAL (GENERAL) HISTORY Type Description Date Medical History Factor 5 Leiden Medical History Prediabetes A1C5.21 Mar 2015 Medical History Mild Cardiomegly Stress Test Surgical History [place] teeth extraction Surgical History Venous Ablation LLE Hospitalization History blood clot 2011
--- OUTSIDE RECORDS SUMMARY | 2018-03-02 11:21 | XMS REPORT ---
Author Author KATHI SALAMANCA Organization [facility] Address [address] [place] [address] Care Team Providers Care Tractor Driver Teamster Name Role Phone KATHI SALAMANCA Unavailable PROBLEMS Type Condition ICD9-CM Code ECZ54-HL Code Onset Dates Condition Status SNOMED Code Problem Factor V Leiden D68.51 Active 779005769 Problem Leg ulcer, left L97.929 Active 06276728 Problem Chronic stasis dermatitis I83.10 Active 29483099 Problem Prediabetes R73.09 Active 4788299 Problem Mixed hyperlipidemia E78.2 Active 018904291 Problem PVD (peripheral vascular disease) I73.9 Active 389545985 Problem Chest heaviness R07.89 Active 61936832 Problem Type 2 diabetes mellitus with diabetic dermatitis, 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 22588353 Problem Dizziness R42 Active 763640018 Problem New daily persistent headache G44.52 Active 563729751 ALLERGIES Substance Reaction Event Type Date Status Penicillin G Benzathine hives Drug Allergy Jun, Active SOCIAL HISTORY No smoking Hx information available PLAN OF CARE Activity Details Follow Up after appt with Dr Mccarthy Reason: VITAL SIGNS Height 72 in 2016-06-18 Weight 404.0 lbs 2016-06-18 Temperature 98.7 degrees Fahrenheit 2016-06-18 Heart Rate 72 bpm 2016-06-18 Respiratory Rate 20 2016-06-18 BMI 54.79 kg/m2 2016-06-18 Blood pressure systolic 145 mmHg 2016-06-18 Blood pressure diastolic 83 mmHg 2016-06-18 MEDICATIONS Medication Instructions Dosage Frequency Start Date End Date Duration Status PredniSONE 5 MG Orally Once a day 1 tablet 24h Active Tacrolimus 0.1 % Externally twice a day 1 application to affected area 12h Active Lisinopril 5 MG Orally Once a day 1 tablet 24h Active Aspirin 325 MG Orally Once a day 1 tablet 24h Active Pravastatin Sodium 10 MG Orally Once a day 1 tablet 24h 30 Active MetFORMIN HCl ER 500 MG TAKE TWO TABLETS BY MOUTH TWICE DAILY 30 Active RESULTS No Results PROCEDURES Procedure Date Ordered Related Diagnosis Body Site Office Visit, Est Pt., Level 3 Jun 18, 2016 IMMUNIZATIONS No Known Immunizations
--- OUTSIDE RECORDS SUMMARY | 2018-03-02 11:22 | XMS REPORT ---
Author Author CINDY PARKS Organization [facility] Address [address] [place] [address] Care Team Providers Care Orthophotography Technician Name Role Phone CINDY PARKS Unavailable PROBLEMS Type Condition ICD9-CM Code NXC15-IT Code Onset Dates Condition Status SNOMED Code Problem Factor V Leiden D68.51 Active 580771386 Problem Leg ulcer, left L97.929 Active 59643422 Problem Chronic stasis dermatitis I83.10 Active 57761470 Problem Prediabetes R73.09 Active 8384806 Problem Mixed hyperlipidemia E78.2 Active 748158933 Problem PVD (peripheral vascular disease) I73.9 Active 107780991 Problem Chest heaviness R07.89 Active 15219870 Problem Type 2 diabetes mellitus with diabetic dermatitis, 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 78191971 Problem Dizziness R42 Active 534302978 Problem New daily persistent headache G44.52 Active 216410078 ALLERGIES Substance Reaction Event Type Date Status Penicillin G Benzathine hives Drug Allergy May, Active SOCIAL HISTORY No smoking Hx information available PLAN OF CARE Activity Details Follow Up prn Reason: VITAL SIGNS Height 72 in 2016-05-29 Temperature 97 degrees Fahrenheit 2016-05-29 Heart Rate 106 bpm 2016-05-29 Respiratory Rate 22 2016-05-29 Oximetry 95 % 2016-05-29 Blood pressure systolic 130 mmHg 2016-05-29 Blood pressure diastolic 78 mmHg 2016-05-29 MEDICATIONS Medication Instructions Dosage Frequency Start Date End Date Duration Status Pravastatin Sodium 10 MG Orally Once a day 1 tablet 24h Feb, 30 day(s) Active Tacrolimus 0.1 % Externally twice a day 1 application to affected area 12h Active PredniSONE 5 MG Orally Once a day 1 tablet 24h Active Aspirin 325 MG Orally Once a day 1 tablet 24h Active MetFORMIN HCl ER 500 MG TAKE TWO TABLETS BY MOUTH TWICE DAILY 30 Active Lisinopril 5 MG Orally Once a day 1 tablet 24h Active Zithromax Z-Mike 250 MG Orally Once a day 2 tablets on the first day, then 1 tablet daily for 4 days 24h May, May, 5 day(s) Active Promethazine-Codeine 6.25-10 MG/5ML Orally every 6 hrs prn cough 5-10 ml as needed May, May, 07 days Active RESULTS No Results PROCEDURES Procedure Date Ordered Related Diagnosis Body Site MEASURE BLOOD OXYGEN LEVEL May 29, 2016 Office Visit, Est Pt., Level 3 May 29, 2016 IMMUNIZATIONS No Known Immunizations
--- OUTSIDE RECORDS SUMMARY | 2018-03-02 11:22 | XMS REPORT ---
Author Author CINDY PARKS [facility] Address [address] [place] [address] Care Team Providers Care Industrial Maintenance Technician Name Role Phone KEL PARKSYL Unavailable PROBLEMS Type Condition ICD9-CM Code ADR78-WF Code Onset Dates Condition Status SNOMED Code Problem Factor V Leiden D68.51 Active 025545823 Problem BRAD (obstructive sleep apnea) G47.33 Active 95068646 Problem Mixed hyperlipidemia E78.2 Active 767957658 Problem Leg ulcer, left L97.929 Active 49771439 Problem Chronic stasis dermatitis I83.10 Active 95956043 Problem PVD (peripheral vascular disease) I73.9 Active 387874276 Problem Type 2 diabetes mellitus with diabetic dermatitis, 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 56310517 ALLERGIES No Information ENCOUNTERS Encounter Location Date Diagnosis [place] [id number] [place] [address] 45232- 1015 Jul, Type 2 diabetes mellitus with diabetic dermatitis, 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 ; Mixed hyperlipidemia E78.2 ; PVD ( peripheral vascular disease) I73.9 ; BRAD (obstructive sleep apnea) G47.33 and BMI 50.0-59.9, adult Z68.43 [place] [address] [place] [address] 06717- 0103 Apr, Type 2 diabetes mellitus with diabetic dermatitis, 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 [address] [place] [address] [id number] 14 Jan, 2017 Encounter for immunization Z23 [facility] [address] [id number] 13 Jan, 2017 Encounter for immunization Z23 [place] [address] [id number]- 6745 September, Leg ulcer, left L97.929 [place] [address] [place] [id number] [place] [address] [phone]- 4231 Jul, [place] [address] 71519- 7888 Jun, Blurry vision, right eye H53.8 [place] [address] [place] [id number] [place] [address] [id number] May, Pneumonia of both lower lobes due to infectious organism J18.9 and Cough in adult patient R05 [place] [address] [place] [id number] [place] [address] [id number] Feb, Encounter for immunization Z23 [place] [address] [place] [id number] [place] [address] 03376- 5336 Feb, Chest heaviness R07.89 ; Dizziness R42 ; Mixed hyperlipidemia E78.2 and PVD (peripheral vascular disease) I73.9 [place] [address] [place] [id number] [place] [address] 21389- 0518 Jan, [place] [address] [place] [id number] [place] [address] 19715- 4184 Jan, [place] [address] [place] [address] [place] [address] 90520- 0859 Jan, [place] [address] [place] [id number] [place] [address] 19397- 9582 Jan, Chronic stasis dermatitis I83.10 ; Factor V Leiden D68.51 ; Leg ulcer, left L97.929 and Type 2 diabetes mellitus with diabetic dermatitis, 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 [place] [address] [place] [address] [place] [address] 64512- 1158 Jan, [place] [address] [place] [address] [place] [address] 43259- 4514 September, [place] [address] [place] [id number] [place] [address] 53651- 4014 Jul, [place] [address] [place] 307567- 0850 Jul, Prediabetes R73.09 ; Chronic stasis dermatitis I83.10 ; Factor V Leiden D68.51 and Leg ulcer, left L97.929 [place] [address] 16535- 4018 Apr, Prediabetes R73.09 ; Chronic stasis dermatitis I83.10 and Factor V Leiden D68.51 [place] [address] [place] [address] [place] [address] 53149- 9933 Apr, Prediabetes R73.09 ; Chronic stasis dermatitis I83.10 and Factor V Leiden D68.51 [place] [address] [place] [address] [place] [address] 79431- 7973 Mar, Prediabetes R73.09 [place] [address] [place] [address] [place] [address] 30775- 0922 Mar, Edema of left lower extremity R60.0 and Factor V Leiden D68.51 [facility] [address] [place] [address] [id number] Dec, Dental examination V72.2 [facility] [address] [id number] Dec, Dental examination V72.2 IMMUNIZATIONS Vaccine Route Administration Date Status FLUARIX QUAD (3 AND UP) 2017 IM Intramuscular Jan 24, 2017 Administered SOCIAL HISTORY Never Assessed REASON FOR VISIT 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
--- OUTSIDE RECORDS SUMMARY | 2018-03-02 11:22 | XMS REPORT ---
Author Author CINDY PARKS [facility] Address [address] [place] [address] Care Team Providers Care Rail Walker Name Role Phone KEL PARKSYL Unavailable PROBLEMS Type Condition ICD9-CM Code RNF88-HJ Code Onset Dates Condition Status SNOMED Code Problem Factor V Leiden D68.51 Active 998306234 Problem BRAD (obstructive sleep apnea) G47.33 Active 13322130 Problem Mixed hyperlipidemia E78.2 Active 812779189 Problem Leg ulcer, left L97.929 Active 99423037 Problem Chronic stasis dermatitis I83.10 Active 50859229 Problem PVD (peripheral vascular disease) I73.9 Active 223157595 Problem Type 2 diabetes mellitus with diabetic dermatitis, 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 93277573 ALLERGIES No Information ENCOUNTERS Encounter Location Date Diagnosis [place] [id number] [place] [address] 05051- 9173 Jul, Type 2 diabetes mellitus with diabetic dermatitis, 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 ; Mixed hyperlipidemia E78.2 ; PVD ( peripheral vascular disease) I73.9 ; BRAD (obstructive sleep apnea) G47.33 and BMI 50.0-59.9, adult Z68.43 [place] [id number] [place] [address] 44060- 2264 Apr, Type 2 diabetes mellitus with diabetic dermatitis, 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 and Mixed hyperlipidemia E78.2 [place] [id number] [place] [address] 84289- 9235 Jan, Type 2 diabetes mellitus with diabetic dermatitis, 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8 [place] [address] [place] [id number] [place] [address] [phone] May, Pneumonia of both lower lobes due to infectious organism J18.9 and Cough in adult patient R05 [place] [address] [place] [id number] [place] [address] [id number] Feb, Encounter for immunization Z23 [place] [address] [place] [address] [place] [address] 25147- 6575 Feb, Chest heaviness R07.89 ; Dizziness R42 ; Mixed hyperlipidemia E78.2 and PVD (peripheral vascular disease) I73.9 [place] [address] [place] [id number] [place] [address] 43931- 7084 Jan, [place] [address] [place] [id number] [place] [address] 27623- 6764 Jan, [place] [address] [place] [id number] [place] [address] 82498- 0891 Jan, [place] [address] [place] [address] [place] [address] 94373- 0054 Jan, Chronic stasis dermatitis I83.10 ; Factor V Leiden D68.51 ; Leg ulcer, left L97.929 and Type 2 diabetes mellitus with diabetic dermatitis, 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 [place] [address] [place] [address] [place] [address] 77601- 4828 Jan, [place] [address] [place] [id number] [place] [address] 33532- 9317 September, [place] [address] 03083- 7249 Jul, [place] [address] [place] 383853- 6189 Jul, Prediabetes R73.09 ; Chronic stasis dermatitis I83.10 ; Factor V Leiden D68.51 and Leg ulcer, left L97.929 [place] [address] 62928- 9468 Apr, Prediabetes R73.09 ; Chronic stasis dermatitis I83.10 and Factor V Leiden D68.51 [place] [address] 37007- 7734 Apr, Prediabetes R73.09 ; Chronic stasis dermatitis I83.10 and Factor V Leiden D68.51 [place] [address] [place] [id number] [place] [address] 05997- 8594 Mar, Prediabetes R73.09 [place] [address] [place] [id number] [place] [address] 79780- 8834 Mar, Edema of left lower extremity R60.0 and Factor V Leiden D68.51 [facility] [address] [place] [address] [id number] Dec, Dental examination V72.2 [facility] [address] [id number] Dec, Dental examination V72.2 IMMUNIZATIONS Vaccine Route Administration Date Status HEP A (ADULT) IM Intramuscular Jan 23, 2017 Administered SOCIAL HISTORY Never Assessed REASON FOR VISIT 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
--- OUTSIDE RECORDS SUMMARY | 2018-03-02 11:26 | XMS REPORT | Continuity of Care Document ---
Author Author [facility] Organization [facility] Address Unknown Phone Unavailable Allergies Active Description Code Type Severity Reaction Onset Reported/Identified Relationship to Patient Clinical Status Yes Penicillins [id number] Drug Allergy Unknown N/A 02/13/2011 Medications There is no data. 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 KISHAN PLATT MD Ot L97.222 NON-PRESSURE CHRONIC ULCER OF LEFT CALF 04/11/1599 KISHAN PLATT MD, Ot D68.51 ACTIVATED PROTEIN C RESISTANCE 04/11/1599 KISHAN PLATT MD Ot 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 04/11/1599 KISHAN PLATT MD, Ot 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 04/11/1599 KISHAN PLATT MD Ot I87.2 VENOUS INSUFFICIENCY (CHRONIC) (PERIPHER 04/11/1599 KISHAN PLATT MD, Ot 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, 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 04/11/1599 KISHAN PLATT MD, Ot L97.222 NON-PRESSURE CHRONIC [...] PHLEBITIS THROMBOPHLEBITIS,FEMORAL VEIN( 08/04/2014 Ot 782.3 08/19/2014 CONNOR WHITMAN, ITALO Giraldo Ot 729.5 08/19/2014 CONNOR WHITMAN, ITALO Giraldo Ot V12.51 09/13/2014 ITALO RYAN MD Ot 729.5 09/13/2014 ITALO RYAN MD Ot V12.51 09/13/2014 Ot 782.3 09/13/2014 ITALO RYAN MD Ot 729.5 09/13/2014 ITALO RYAN MD Ot V12.51 10/26/2014 Ot 782.3 10/26/2014 ITALO RYAN MD Ot 729.5 10/26/2014 ITALO RYAN MD Ot V12.51 11/04/2014 ITALO RYAN MD Ot 729.5 11/04/2014 ITALO RYAN MD Ot V12.51 02/12/2015 MONICA WHITMAN, CHRIS Melendrez Ot D68.2 HEREDITARY DEFICIENCY OF OTHER CLOTTING 02/12/2015 MONICA WHITMAN, CHRIS Melendrze Ot L03.116 CELLULITIS OF LEFT LOWER LIMB 02/12/2015 MONICA WHITMAN, CHRIS Melendrez Ot M79.89 OTHER SPECIFIED SOFT TISSUE DISORDERS 02/12/2015 MONICA WHITMAN, CHRIS Melendrez Ot Z86.718 PERSONAL HISTORY OF OTHER VENOUS THROMBO 02/13/2015 Ot 782.3 02/13/2015 ITALO RYAN MD Ot 729.5 02/13/2015 ITALO RYAN MD Ot V12.51 07/27/2015 Ot 782.3 07/27/2015 ITALO RYAN MD Ot 729.5 07/27/2015 ITALO RYAN MD Ot [...] GIULIA WHITMAN, KISHAN Dickey Ot I70.242 08/10/2015 GIULIA WHITMAN, KISHAN Dickey Ot I87.032 08/10/2015 GIULIA WHITMAN, KISHAN Dickey Ot L97.222 08/24/2015 GIULIA WHITMAN, KISHAN Dickey Ot D68.51 08/24/2015 GIULIA WHITMAN, KISHAN Dickey Ot I70.242 08/24/2015 GIULIA WHITMAN, KISHAN Dickey Ot I87.032 08/24/2015 GIULIA WHITMAN, KISHAN Dickey Ot L97.222 08/24/2015 GIULIA WHITMAN, KISHAN Dickey Ot D68.51 08/24/2015 GIULIA WHITMAN, KISHAN Dickey Ot I70.242 08/24/2015 GIULIA WHITMAN, KISHAN Dickey Ot I87.032 08/24/2015 GIULIA WHITMAN, KISHAN Dickey Ot L97.222 09/16/2015 GIULIA WHITMAN, KISHAN Dickey Ot D68.51 ACTIVATED PROTEIN C RESISTANCE 09/16/2015 KISHAN PLATT MD Ot 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 [facility] 09/16/2015 KISHAN PLATT MD Ot 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 09/16/2015 GIULIA WHITMAN, KISHAN Dickey Ot 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, 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 09/16/2015 GIULIA WHITMAN, KISHAN Dickey Ot L97.222 NON-PRESSURE CHRONIC ULCER OF LEFT CALF 09/19/2015 GIULIA WHITMAN, KISHAN Dickey Ot D68.51 ACTIVATED PROTEIN C RESISTANCE 09/19/2015 GIULIA WHITMAN, KISHAN Dickey Ot 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 [facility] 09/19/2015 GIULIA WHITMAN, KISHAN Dickye Ot 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 09/19/2015 KISHAN PLATT MD Ot 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, 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 09/19/2015 KISHAN PLATT MD Ot L97.222 NON-PRESSURE CHRONIC ULCER OF LEFT CALF 09/30/2015 KISHAN PLATT MD, Ot D68.51 ACTIVATED PROTEIN C RESISTANCE 09/30/2015 KISHAN PLATT MD Ot 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 [facility] 09/30/2015 KISHAN PLATT MD Ot 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 09/30/2015 KISHAN PLATT MD Ot L97.222 NON-PRESSURE CHRONIC ULCER OF LEFT CALF 10/06/2015 KISHAN PLATT MD, Ot D68.51 ACTIVATED PROTEIN C RESISTANCE 10/06/2015 KISHAN PLATT MD Ot 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 [facility] 10/06/2015 KISHAN PLATT MD, Ot 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 10/06/2015 KISHAN PLATT MD, Ot 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, 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 10/06/2015 KISHAN PLATT MD Ot L97.222 NON-PRESSURE CHRONIC ULCER OF LEFT CALF 10/25/2015 KISHAN PLATT MD, Ot D68.51 ACTIVATED PROTEIN C RESISTANCE 10/25/2015 KISHAN PLATT MD Ot 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 [facility] 10/25/2015 KISHAN PLATT MD Ot 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 10/25/2015 KISHAN PLATT MD Ot L97.222 NON-PRESSURE CHRONIC ULCER OF LEFT CALF 10/31/2015 KISHAN PLATT MD Ot D68.51 ACTIVATED PROTEIN C RESISTANCE 10/31/2015 KISHAN PLATT MD Ot 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 [facility] 10/31/2015 KISHAN PLATT MD Ot 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 10/31/2015 KISHAN PLATT MD Ot L97.222 NON-PRESSURE CHRONIC ULCER OF LEFT CALF 11/01/2015 KISHAN PLATT MD Ot D68.51 ACTIVATED PROTEIN C RESISTANCE 11/01/2015 KISHAN PLATT MD Ot 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 11/01/2015 KISHAN PLATT MD Ot 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 11/01/2015 KISHAN PLATT MD Ot L97.222 NON-PRESSURE CHRONIC ULCER OF LEFT CALF 11/04/2015 KISHAN PLATT MD Ot 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 11/09/2015 KISHAN PLATT MD, Ot I87.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 SYNDROME [...] 12/13/2015 KISHAN PLATT MD Ot 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 12/13/2015 KISHAN PLATT MD Ot 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 12/13/2015 KISHAN PLATT MD Ot L97.222 NON-PRESSURE CHRONIC ULCER OF LEFT CALF 12/15/2015 GIULIA MD, KISHAN G Ot D68.51 ACTIVATED PROTEIN C RESISTANCE 12/15/2015 KISHAN PLATT MD Ot 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 12/15/2015 KISHAN PLATT MD, Ot 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, 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 12/15/2015 KISHAN PLATT MD Ot L97.222 NON-PRESSURE CHRONIC ULCER OF LEFT CALF 12/15/2015 KISHAN PLATT MD, Ot D68.51 ACTIVATED PROTEIN C RESISTANCE 12/15/2015 KISHAN PLATT MD Ot 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 12/15/2015 KISHAN PLATT MD, Ot 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, 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 12/15/2015 KISHAN PLATT MD, Ot L97.222 NON-PRESSURE CHRONIC ULCER OF LEFT CALF 12/15/2015 KISHAN PLATT MD, Ot D68.51 ACTIVATED PROTEIN C RESISTANCE 12/15/2015 KISHAN PLATT MD Ot 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 12/15/2015 KISHAN PLATT MD, Ot 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, 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 12/15/2015 KISHAN PLATT MD Ot L97.222 NON-PRESSURE CHRONIC ULCER OF LEFT CALF 12/23/2015 KISHAN PLATT MD, Ot D68.51 ACTIVATED PROTEIN C RESISTANCE 12/23/2015 KISHAN PLATT MD Ot 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 12/23/2015 KISHAN PLATT MD Ot 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, 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 12/23/2015 KISHAN PLATT MD Ot L97.222 NON-PRESSURE CHRONIC ULCER OF LEFT CALF 12/26/2015 KISHAN PLATT MD Ot D68.51 ACTIVATED PROTEIN C RESISTANCE 12/26/2015 KISHAN PLATT MD Ot 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 12/26/2015 KISHAN PLATT MD Ot 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 12/26/2015 KISHAN PLATT MD Ot L97.222 NON-PRESSURE CHRONIC ULCER OF LEFT CALF 01/09/2016 KISHAN PLATT MD Ot D68.51 ACTIVATED PROTEIN C RESISTANCE 01/09/2016 KISHAN PLATT MD Ot 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 01/09/2016 KISHAN PLATT MD Ot 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, 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 01/09/2016 KISHAN PLATT MD, Ot L97.222 NON-PRESSURE CHRONIC ULCER OF LEFT CALF 01/29/2016 KISHAN PLATT MD, Ot D68.51 ACTIVATED PROTEIN C RESISTANCE 01/29/2016 KISHAN PLATT MD Ot 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 [facility] 01/29/2016 KISHAN PLATT MD, Ot 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 01/29/2016 KISHAN PLATT MD Ot I87.2 VENOUS INSUFFICIENCY (CHRONIC) (PERIPHER 01/29/2016 KISHAN PLATT MD, Ot 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, 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 01/29/2016 KISHAN PLATT MD, Ot L97.222 NON-PRESSURE CHRONIC ULCER OF LEFT CALF 01/30/2016 KISHAN PLATT MD, Ot D68.51 ACTIVATED PROTEIN C RESISTANCE 01/30/2016 KISHAN PLATT MD Ot 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 [facility] 01/30/2016 KISHAN PLATT MD, Ot 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 01/30/2016 KISHAN PLATT MD Ot I87.2 VENOUS INSUFFICIENCY (CHRONIC) (PERIPHER 01/30/2016 KISHAN PLATT MD, Ot 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, 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 01/30/2016 KISHAN PLATT MD Ot L97.222 NON-PRESSURE CHRONIC ULCER OF LEFT CALF 01/31/2016 KISHAN PLATT MD, Ot D68.51 ACTIVATED PROTEIN C RESISTANCE 01/31/2016 KISHAN PLATT MD Ot 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 01/31/2016 KISHAN PLATT MD Ot I87.2 VENOUS INSUFFICIENCY (CHRONIC) (PERIPHER 01/31/2016 KISHAN PLATT MD, Ot 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, 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 01/31/2016 KISHAN PLATT MD Ot L97.222 NON-PRESSURE CHRONIC ULCER OF LEFT CALF 02/01/2016 KISHAN PLATT MD, Ot D68.51 ACTIVATED PROTEIN C RESISTANCE 02/01/2016 KISHAN PLATT MD Ot 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 [facility] 02/01/2016 KISHAN PLATT MD, Ot 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 02/01/2016 KISHAN PLATT MD, Ot L97.222 NON-PRESSURE CHRONIC ULCER OF LEFT CALF 02/02/2016 KISHAN PLATT MD, Ot D68.51 ACTIVATED PROTEIN C RESISTANCE 02/02/2016 KISHAN PLATT MD Ot 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 [facility] 02/02/2016 KISHAN PLATT MD, Ot 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 02/02/2016 KISHAN PLATT MD, Ot L97.222 NON-PRESSURE CHRONIC ULCER OF LEFT CALF 02/04/2016 KISHAN PLATT MD, Ot D68.51 ACTIVATED PROTEIN C RESISTANCE 02/04/2016 KISHAN PLATT MD, Ot 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 [facility] 02/04/2016 KISHAN PLATT MD, Ot 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 02/04/2016 KISHAN PLATT MD, Ot I87.2 VENOUS INSUFFICIENCY (CHRONIC) (PERIPHER 02/04/2016 KISHAN PLATT MD, Ot 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, 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 02/04/2016 KISHAN PLATT MD, Ot L97.222 NON-PRESSURE CHRONIC ULCER OF LEFT CALF 02/13/2016 KISHAN PLATT MD, Ot D68.51 ACTIVATED PROTEIN C RESISTANCE 02/13/2016 KISHAN PLATT MD Ot 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 [facility] 02/13/2016 KISHAN PLATT MD, Ot 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 02/13/2016 KISHAN PLATT MD Ot I87.2 VENOUS INSUFFICIENCY (CHRONIC) (PERIPHER 02/13/2016 KISHAN PLATT MD Ot 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, 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 02/13/2016 KISHAN PLATT MD Ot L97.222 NON-PRESSURE CHRONIC ULCER OF LEFT CALF 02/15/2016 KISHAN PLATT MD, Ot D68.51 ACTIVATED PROTEIN C RESISTANCE 02/15/2016 KISHAN PLATT MD Ot 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 [facility] 02/15/2016 GIULIA MD, KISHAN G Ot 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 02/15/2016 KISHAN PLATT MD Ot L97.222 NON-PRESSURE CHRONIC ULCER OF LEFT CALF 03/02/2016 Ot 782.3 EDEMA 03/02/2016 CONNOR WHITMAN, ITALO Giraldo Ot 729.5 PAIN IN LIMB 03/02/2016 CONNOR WHITMAN, ITALO Giraldo Ot V12.51 HX-VENOUS THROMBOSIS EMBOLISM 03/02/2016 KISHAN PLATT MD, Ot D68.51 ACTIVATED PROTEIN C RESISTANCE 03/02/2016 KISHAN PLATT MD Ot 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 03/02/2016 KISHAN PLATT MD Ot 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 03/02/2016 KISHAN PLATT MD Ot L97.222 NON-PRESSURE CHRONIC ULCER OF LEFT CALF 03/02/2016 KISHAN PLATT MD, Ot D68.51 ACTIVATED PROTEIN C RESISTANCE 03/02/2016 KISHAN PLATT MD Ot 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 UL 03/02/2016 KISHAN PLATT MD, Ot 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 03/02/2016 KISHAN PLATT MD Ot L97.222 NON-PRESSURE CHRONIC ULCER OF LEFT CALF 03/02/2016 KISHAN PLATT MD Ot D68.51 ACTIVATED PROTEIN C RESISTANCE 03/02/2016 KISHAN PLATT MD Ot 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 [facility] 03/02/2016 KISHAN PLATT MD Ot I87.032 [...] 03/02/2016 KISHAN PLATT MD Ot 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 03/02/2016 [...] 03/02/2016 KISHAN PLATT MD Ot 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 03/02/2016 KISHAN PLATT MD, Ot 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 03/02/2016 KISHAN PLATT MD Ot L97.222 NON-PRESSURE CHRONIC ULCER OF LEFT CALF 03/02/2016 KISHAN PLATT MD, Ot D68.51 ACTIVATED PROTEIN C RESISTANCE 03/02/2016 KISHAN PLATT MD Ot 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 03/02/2016 KISHAN PLATT MD, Ot 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 03/02/2016 KISHAN PLATT MD, Ot L97.222 NON-PRESSURE CHRONIC ULCER OF LEFT CALF 03/02/2016 KISHAN PLATT MD, Ot D68.51 ACTIVATED PROTEIN C RESISTANCE 03/02/2016 KISHAN PLATT MD, Ot 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 03/02/2016 KISHAN PLATT MD, Ot 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 03/02/2016 KISHAN PLATT MD, Ot 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, 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 03/02/2016 KISHAN PLATT MD, Ot L97.222 NON-PRESSURE CHRONIC [...] VENOUS INSUFFICIENCY (CHRONIC) (PERIPHER 03/02/2016 KISHAN PLATT MD, Ot 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, 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 03/02/2016 KISHAN PLATT MD Ot L97.222 NON-PRESSURE CHRONIC ULCER OF LEFT CALF 03/02/2016 KISHAN PLATT MD, Ot D68.51 ACTIVATED PROTEIN C RESISTANCE 03/02/2016 KISHAN PLATT MD Ot 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 03/02/2016 [...] 03/02/2016 KISHAN PLATT MD Ot 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 03/02/2016 [...] 03/02/2016 KISHAN PLATT MD Ot 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 03/02/2016 KISHAN PLATT MD Ot 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 03/02/2016 GIULIA WHITMAN, KISHAN Dickey Ot 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, 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 03/02/2016 KISHAN PLATT MD Ot L97.222 NON-PRESSURE CHRONIC ULCER OF LEFT CALF 03/06/2016 KAT WHITMAN FACC, ALI FACP CCDS Ot E11.9 TYPE 2 DIABETES MELLITUS WITHOUT COMPLIC 03/06/2016 KAT WHITMAN FACC, ALI FACP CCDS Ot G47.30 SLEEP APNEA, UNSPECIFIED 03/06/2016 KAT WHITMAN FACC, ALI FACP CCDS Ot R00.2 PALPITATIONS 03/06/2016 KAT WHITMAN FACC, ALI FACP CCDS Ot R06.02 SHORTNESS OF BREATH 03/06/2016 KAT WHITMAN FACC, ALI FACP CCDS Ot R07.89 OTHER CHEST PAIN 03/06/2016 KAT WHITMAN FACC, ALI FACP CCDS Ot R42 DIZZINESS AND GIDDINESS 03/07/2016 KAT WHITMAN FACC, ALI FACP CCDS Ot E11.9 TYPE 2 DIABETES MELLITUS WITHOUT COMPLIC 03/07/2016 KAT WHITMAN FACC, ALI FACP CCDS Ot G47.30 SLEEP APNEA, UNSPECIFIED 03/07/2016 KAT WHITMAN FACC, ALI FACP CCDS Ot R00.2 PALPITATIONS 03/07/2016 [...] Ot R42 DIZZINESS AND GIDDINESS 03/14/2016 KAT GERARDOC, ALI FACP CCDS Ot E11.9 TYPE 2 [...] G47.30 SLEEP APNEA, UNSPECIFIED 03/19/2016 KAT WHITMAN FACC, ALI FACP CCDS Ot R00.2 PALPITATIONS 03/19/2016 KAT GERARDOC, ALI FACP CCDS Ot R06.02 SHORTNESS OF BREATH 03/19/2016 KAT GERARDOC, ALI FACP CCDS Ot R07.89 OTHER CHEST PAIN 03/19/2016 KAT WHITMAN FACC, ALI FACP CCDS Ot R42 DIZZINESS AND GIDDINESS 03/30/2016 [facility], [facility] FACP CCDS Ot E11.9 TYPE 2 DIABETES MELLITUS WITHOUT COMPLIC 03/30/2016 KAT GERARDOC, ALI FACP CCDS Ot G47.30 SLEEP APNEA, UNSPECIFIED 03/30/2016 KAT GERARDO, ALI FACP CCDS Ot R00.2 PALPITATIONS 03/30/2016 KAT WHITMAN FACC, ALI FACP CCDS Ot R06.02 SHORTNESS OF BREATH 03/30/2016 KAT WHITMAN FACC, ALI FACP CCDS Ot R07.89 OTHER CHEST PAIN 03/30/2016 KAT GERARDOC, ALI FACP CCDS Ot R42 DIZZINESS AND GIDDINESS 04/02/2016 KISHAN PLATT MD Ot D68.51 ACTIVATED PROTEIN C RESISTANCE 04/02/2016 KISHAN PLATT MD Ot 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 04/02/2016 KISHAN PLATT MD, Ot 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 04/02/2016 KISHAN PLATT MD Ot I87.2 VENOUS INSUFFICIENCY (CHRONIC) (PERIPHER 04/02/2016 KISHAN PLATT MD, Ot 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, 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 04/02/2016 KISHAN PLATT MD, Ot L97.222 NON-PRESSURE CHRONIC ULCER OF LEFT CALF 04/11/2016 KAT WHITMAN FACC, ALI FACP CCDS Ot E11.9 TYPE 2 DIABETES MELLITUS WITHOUT COMPLIC 04/11/2016 KAT WHITMAN FACC, ALI FACP CCDS Ot G47.30 SLEEP APNEA, UNSPECIFIED 04/11/2016 KAT WHITMAN FACC, ALI FACP CCDS Ot R00.2 PALPITATIONS 04/11/2016 KAT WHITMAN FACC, ALI FACP CCDS Ot R06.02 SHORTNESS OF BREATH 04/11/2016 KAT WHITMAN FACC, ALI FACP CCDS Ot R07.89 OTHER CHEST PAIN 04/11/2016 KAT WHITMAN FAC, ALI FACP CCDS Ot R42 DIZZINESS AND GIDDINESS 04/11/2016 KISHAN PLATT MD, Ot 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 04/11/2016 KISHAN PLATT MD Ot D68.51 ACTIVATED PROTEIN C RESISTANCE 04/11/2016 KISHAN PLATT MD Ot 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 04/11/2016 [...] LIPOIDICA, 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 04/25/2016 KISHAN PLATT MD Ot L97.222 NON-PRESSURE CHRONIC ULCER OF LEFT CALF 05/15/2016 KISHAN PLATT MD, Ot D68.51 ACTIVATED PROTEIN C RESISTANCE 05/15/2016 KISHAN PLATT MD Ot E11.622 TYPE 2 DIABETES MELLITUS WITH OTHER SKIN 05/15/2016 KISHAN PLATT MD Ot 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 [facility] 05/15/2016 KISHAN PLATT MD Ot 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 05/15/2016 KISHAN PLATT MD Ot I87.2 VENOUS INSUFFICIENCY (CHRONIC) (PERIPHER 05/15/2016 KISHAN PLATT MD, Ot 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, 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 05/15/2016 KISHAN PLATT MD, Ot L97.222 NON-PRESSURE CHRONIC ULCER OF LEFT CALF 05/16/2016 KISHAN PLATT MD, Ot D68.51 ACTIVATED PROTEIN C RESISTANCE 05/16/2016 KISHAN PLATT MD Ot 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 [facility] 05/16/2016 KISHAN PLATT MD, Ot 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 05/16/2016 KISHAN PLATT MD Ot I87.2 VENOUS INSUFFICIENCY (CHRONIC) (PERIPHER 05/16/2016 KISHAN PLATT MD Ot 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, 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 05/16/2016 KISHAN PLATT MD Ot L97.222 NON-PRESSURE CHRONIC ULCER OF LEFT CALF 05/17/2016 KISHAN PLATT MD, Ot D68.51 ACTIVATED PROTEIN C RESISTANCE 05/17/2016 KISHAN PLATT MD Ot 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 [facility] 05/17/2016 KISHAN PLATT MD Ot 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 05/17/2016 KISHAN PLATT MD Ot I87.2 VENOUS INSUFFICIENCY (CHRONIC) (PERIPHER 05/17/2016 KISHAN PLATT MD Ot 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51 ACTIVATED PROTEIN C RESISTANCE 07/27/2016 KISHAN PLATT MD, Ot 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 07/27/2016 KISHAN PLATT MD, Ot 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 07/27/2016 KISHAN PLATT MD Ot I87.2 VENOUS INSUFFICIENCY (CHRONIC) (PERIPHER 07/27/2016 KISHAN PLATT MD, Ot 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, 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 07/27/2016 KISHAN PLATT MD, Ot L97.222 NON-PRESSURE CHRONIC ULCER OF LEFT CALF 08/05/2016 HUMERA CARDOZA DO, Ot D68.51 ACTIVATED PROTEIN C RESISTANCE 08/05/2016 HUMERA CARDOZA DO Ot E11.9 TYPE 2 DIABETES MELLITUS WITHOUT COMPLIC 08/05/2016 HUMERA CARDOZA DO Ot E66.01 MORBID (SEVERE) OBESITY DUE TO EXCESS CA 08/05/2016 HUMERA CARDOZA DO Ot E83.42 HYPOMAGNESEMIA 08/05/2016 HUMERA CARDOZA DO Ot I10 ESSENTIAL (PRIMARY) HYPERTENSION 08/05/2016 HUMERA CARDOZA DO Ot R42 DIZZINESS AND GIDDINESS 08/05/2016 HUMERA CARDOZA DO, Ot Z79.82 SKILLED NURSING (CURRENT) USE OF ASPIRIN 08/05/2016 HUMERA CARDOZA DO Ot Z79.84 AGRICULTURAL CHEMICALS INSPECTOR (CURRENT) USE OF ORAL HYPOGLYC 08/05/2016 HUMERA CARDOZA DO, Ot Z79.899 OTHER AGRICULTURAL CHEMICALS INSPECTOR (CURRENT) DRUG THERAPY 08/05/2016 HUMERA CARDOZA DO, Ot Z86.718 PERSONAL HISTORY OF OTHER VENOUS THROMBO 08/07/2016 HUMERA CARDOZA DO Ot D68.51 ACTIVATED PROTEIN C RESISTANCE 08/07/2016 HUMERA CARDOZA DO Ot E11.9 TYPE 2 DIABETES MELLITUS WITHOUT COMPLIC 08/07/2016 HUMERA CARDOZA DO Ot E66.01 MORBID (SEVERE) OBESITY DUE TO EXCESS CA 08/07/2016 HUMERA CARDOZA DO Ot E83.42 HYPOMAGNESEMIA 08/07/2016 HUMERA CARDOZA DO Ot I10 ESSENTIAL (PRIMARY) HYPERTENSION 08/07/2016 NANI JOHNSONARYAAneesh Blevins Ot R42 DIZZINESS AND GIDDINESS 08/07/2016 NANI JOHNSON HUMERA Blevins Ot Z79.82 SKILLED NURSING (CURRENT) USE OF ASPIRIN 08/07/2016 NANI JOHNSON HUMERA K Ot Z79.84 AGRICULTURAL CHEMICALS INSPECTOR (CURRENT) USE OF ORAL HYPOGLYC 08/07/2016 NANI JOHNSON HUMERA Blevins Ot Z79.899 OTHER AGRICULTURAL CHEMICALS INSPECTOR (CURRENT) DRUG THERAPY 08/07/2016 HUMERA CARDOZA DO Ot Z86.718 PERSONAL HISTORY OF OTHER VENOUS THROMBO 08/14/2016 KISHAN PLATT MD, Ot D68.51 ACTIVATED PROTEIN C RESISTANCE 08/14/2016 KISHAN PLATT MD, Ot 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 [facility] 08/14/2016 KISHAN PLATT MD, Ot 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 08/14/2016 KISHAN PLATT MD, Ot I87.2 VENOUS INSUFFICIENCY (CHRONIC) (PERIPHER 08/14/2016 KISHAN PLATT MD, Ot 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, 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 08/14/2016 KISHAN PLATT MD, Ot L97.222 NON-PRESSURE CHRONIC ULCER OF LEFT CALF 08/22/2016 KISHAN PLATT MD, Ot D68.51 ACTIVATED PROTEIN C RESISTANCE 08/22/2016 KISHAN PLATT MD, Ot 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 [facility] 08/22/2016 KISHAN PLATT MD, Ot 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 08/22/2016 KISHAN PLATT MD, Ot I87.2 VENOUS INSUFFICIENCY (CHRONIC) (PERIPHER 08/22/2016 KISHAN PLATT MD, Ot 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, 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 08/22/2016 KISHAN PLATT MD Ot L97.222 NON-PRESSURE CHRONIC ULCER OF LEFT CALF 08/22/2016 ITALO RYAN MD Ot 729.5 PAIN IN LIMB 08/22/2016 ITALO RYAN MD Ot V12.51 HX-VENOUS THROMBOSIS EMBOLISM 08/22/2016 KISHAN PLATT MD, Ot D68.51 ACTIVATED PROTEIN C RESISTANCE 08/22/2016 KISHAN PLATT MD Ot 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 [facility] 08/22/2016 KISHAN PLATT MD, Ot 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 08/22/2016 KISHAN PLATT MD, Ot L97.222 NON-PRESSURE CHRONIC ULCER OF LEFT CALF 08/22/2016 KISHAN PLATT MD, Ot D68.51 ACTIVATED PROTEIN C RESISTANCE 08/22/2016 KISHAN PLATT MD Ot 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 [facility] 08/22/2016 KISHAN PLATT MD, Ot 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 08/22/2016 KISHAN PLATT MD Ot L97.222 NON-PRESSURE CHRONIC ULCER OF LEFT CALF 08/22/2016 KISHAN PLATT MD, Ot D68.51 ACTIVATED PROTEIN C RESISTANCE 08/22/2016 KISHAN PLATT MD Ot 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 [facility] 08/22/2016 KISHAN PLATT MD Ot 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 08/22/2016 KISHAN PLATT MD Ot 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, 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 08/22/2016 KISHAN PLATT MD Ot L97.222 NON-PRESSURE CHRONIC ULCER OF LEFT CALF 08/22/2016 KISHAN PLATT MD Ot 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 08/22/2016 RUDY JOHNSON MD Ot E66.9 OBESITY, UNSPECIFIED 08/22/2016 RUDY JOHNSON MD Ot I10 ESSENTIAL (PRIMARY) HYPERTENSION 08/22/2016 RUDY JOHNSON MD Ot L97.201 NON-PRS CHRONIC ULCER OF UNSP CALF LIMIT 08/22/2016 RUDY JOHNSON MD Ot I10 ESSENTIAL (PRIMARY) HYPERTENSION 08/22/2016 ALEX WHITMAN RUDY Ortega Ot I82.402 ACUTE EMBOLISM AND THOMBOS UNSP DEEP VEI 08/22/2016 KISHAN PLATT MD, Ot D68.51 ACTIVATED PROTEIN C RESISTANCE 08/22/2016 KISHAN PLATT MD Ot 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 08/22/2016 KISHAN PLATT MD Ot 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, 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 08/22/2016 KISHAN PLATT MD, Ot L97.222 NON-PRESSURE CHRONIC ULCER OF LEFT CALF 08/22/2016 KISHAN PLATT MD, Ot D68.51 ACTIVATED PROTEIN C RESISTANCE 08/22/2016 KISHAN PLATT MD, Ot 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 08/22/2016 KISHAN PLATT MD Ot I87.2 VENOUS INSUFFICIENCY (CHRONIC) (PERIPHER 08/22/2016 KISHAN PLATT MD, Ot 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, 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 08/22/2016 KISHAN PLATT MD, Ot L97.222 NON-PRESSURE CHRONIC ULCER OF LEFT CALF 08/22/2016 KAT WHITMAN FACC, SHOAIB FACP CCDS Ot E11.9 TYPE 2 DIABETES MELLITUS WITHOUT COMPLIC 08/22/2016 KAT WHITMAN FACC, SHOAIB FACP CCDS Ot G47.30 SLEEP APNEA, UNSPECIFIED 08/22/2016 KAT WHITMAN FACC, SHOAIB FACP CCDS Ot R00.2 PALPITATIONS 08/22/2016 KAT WHITMAN FACC, SHOAIB FACP CCDS Ot R06.02 SHORTNESS OF BREATH 08/22/2016 KAT WHITMAN FACC, SHOAIB FACP CCDS Ot R07.89 OTHER CHEST PAIN 08/22/2016 KAT WHITMAN FACC, ALI FACP CCDS Ot R42 DIZZINESS AND GIDDINESS 08/22/2016 KAT WHITMAN FACC, ALI FACP CCDS Ot E11.9 TYPE 2 DIABETES MELLITUS WITHOUT COMPLIC 08/22/2016 KAT WHITMAN FACC, ALI FACP CCDS Ot G47.30 SLEEP APNEA, UNSPECIFIED 08/22/2016 KAT WHITMAN FACC, ALI FACP CCDS Ot R00.2 PALPITATIONS 08/22/2016 KAT WHITMAN FACC, ALI FACP CCDS Ot R06.02 SHORTNESS OF BREATH 08/22/2016 KAT WHITMAN FACC, ALI FACP CCDS Ot R07.89 OTHER CHEST PAIN 08/22/2016 KAT WHITMAN [facility], [facility] CCDS Ot R42 DIZZINESS AND GIDDINESS 08/22/2016 KISHAN PLATT MD Ot E11.622 TYPE 2 DIABETES MELLITUS WITH OTHER SKIN 08/22/2016 KISHAN PLATT MD, Ot 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, 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 08/22/2016 KISHAN PLATT MD, Ot L97.222 NON-PRESSURE CHRONIC ULCER OF LEFT CALF 08/22/2016 KISHAN PLATT MD, Ot D68.51 ACTIVATED PROTEIN C RESISTANCE 08/22/2016 KISHAN PLATT MD Ot 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 [facility] 08/22/2016 KISHAN PLATT MD, Ot 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 08/22/2016 KISHAN PLATT MD Ot I87.2 VENOUS INSUFFICIENCY (CHRONIC) (PERIPHER 08/22/2016 KISHAN PLATT MD, Ot 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, 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 08/22/2016 KISHAN PLATT MD, Ot L97.222 NON-PRESSURE CHRONIC ULCER OF LEFT CALF 08/23/2016 KISHAN PLATT MD, Ot D68.51 ACTIVATED PROTEIN C RESISTANCE 08/23/2016 KISHAN PLATT MD Ot 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 [facility] 08/23/2016 KISHAN PLATT MD Ot 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 08/23/2016 KISHAN PLATT MD Ot I87.2 VENOUS INSUFFICIENCY (CHRONIC) (PERIPHER 08/23/2016 KISHAN PLATT MD, Ot 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, 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 08/23/2016 KISHAN PLATT MD Ot L97.222 NON-PRESSURE CHRONIC ULCER OF LEFT CALF 08/30/2016 ITALO RYAN MD Ot 729.5 PAIN IN LIMB 08/30/2016 ITALO RYAN MD Ot V12.51 HX-VENOUS THROMBOSIS EMBOLISM 08/30/2016 KISHAN PLATT MD, Ot D68.51 ACTIVATED PROTEIN C RESISTANCE 08/30/2016 KISHAN PLATT MD Ot 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 [facility] 08/30/2016 KISHAN PLATT MD Ot 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 08/30/2016 KISHAN PLATT MD Ot L97.222 NON-PRESSURE CHRONIC ULCER OF LEFT CALF 08/30/2016 KISHAN PLATT MD, Ot D68.51 ACTIVATED PROTEIN C RESISTANCE 08/30/2016 KISHAN PLATT MD Ot 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 [facility] 08/30/2016 KISHAN PLATT MD, Ot 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 08/30/2016 KISHAN PLATT MD Ot L97.222 NON-PRESSURE CHRONIC ULCER OF LEFT CALF 08/30/2016 KISHAN PLATT MD, Ot D68.51 ACTIVATED PROTEIN C RESISTANCE 08/30/2016 KISHAN PLATT MD, Ot 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 [facility] 08/30/2016 KISHAN PLATT MD, Ot 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 08/30/2016 KISHAN PLATT MD, Ot 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, 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 08/30/2016 KISHAN PLATT MD, Ot L97.222 NON-PRESSURE CHRONIC ULCER OF LEFT CALF 08/30/2016 KISHAN PLATT MD, Ot 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 08/30/2016 RUDY JOHNSON MD Ot E66.9 OBESITY, UNSPECIFIED 08/30/2016 RUDY JOHNSON MD Ot I10 ESSENTIAL (PRIMARY) HYPERTENSION 08/30/2016 RUDY JOHNSON MD Ot L97.201 NON-PRS CHRONIC ULCER OF UNSP CALF LIMIT 08/30/2016 RUDY JOHNSON MD Ot I10 ESSENTIAL (PRIMARY) HYPERTENSION 08/30/2016 RUDY JOHNSON MD Ot I82.402 ACUTE EMBOLISM AND THOMBOS UNSP DEEP VEI 08/30/2016 KISHAN PLATT MD Ot D68.51 ACTIVATED PROTEIN C RESISTANCE 08/30/2016 KISHAN PLATT MD Ot 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 08/30/2016 KISHAN PLATT MD Ot 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, 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 08/30/2016 KISHAN PLATT MD Ot L97.222 NON-PRESSURE CHRONIC ULCER OF LEFT CALF 08/30/2016 KISHAN PLATT MD, Ot D68.51 ACTIVATED PROTEIN C RESISTANCE 08/30/2016 KISHAN PLATT MD Ot 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 08/30/2016 KISHAN PLATT MD Ot I87.2 VENOUS INSUFFICIENCY (CHRONIC) (PERIPHER 08/30/2016 KISHAN PLATT MD, Ot 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, 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 08/30/2016 KISHAN PLATT MD, Ot L97.222 NON-PRESSURE CHRONIC ULCER OF LEFT CALF 08/30/2016 KAT WHITMAN FAC, ALI FACP CCDS Ot E11.9 TYPE 2 DIABETES MELLITUS WITHOUT COMPLIC 08/30/2016 KAT WHITMAN FACC, ALI FACP CCDS Ot G47.30 SLEEP APNEA, UNSPECIFIED 08/30/2016 KAT WHITMAN FACC, ALI FACP CCDS Ot R00.2 PALPITATIONS 08/30/2016 KAT WHITMAN FACC, ALI FACP CCDS Ot R06.02 SHORTNESS OF BREATH 08/30/2016 KAT WHITMAN FACC, ALI FACP CCDS Ot R07.89 OTHER CHEST PAIN 08/30/2016 KAT WHITMAN FACC, ALI FACP CCDS Ot R42 DIZZINESS AND GIDDINESS 08/30/2016 KAT WHITMAN FACC, ALI FACP CCDS Ot E11.9 TYPE 2 DIABETES MELLITUS WITHOUT COMPLIC 08/30/2016 KAT WHITMAN FACC, ALI FACP CCDS Ot G47.30 SLEEP APNEA, UNSPECIFIED 08/30/2016 KAT WHITMAN FACC, ALI FACP CCDS Ot R00.2 PALPITATIONS 08/30/2016 KAT WHITMAN FACC, ALI FACP CCDS Ot R06.02 SHORTNESS OF BREATH 08/30/2016 KAT WHITMAN FAC, ALI FACP CCDS Ot R07.89 OTHER CHEST PAIN 08/30/2016 KAT WHITMAN FACC, ALI FACP CCDS Ot R42 DIZZINESS AND GIDDINESS 08/30/2016 KISHAN PLATT MD Ot E11.622 TYPE 2 DIABETES MELLITUS WITH OTHER SKIN 08/30/2016 KISHAN PLATT MD, Ot 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, 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 08/30/2016 KISHAN PLATT MD, Ot L97.222 NON-PRESSURE CHRONIC ULCER OF LEFT CALF 08/30/2016 KISHAN PLATT MD, Ot D68.51 ACTIVATED PROTEIN C RESISTANCE 08/30/2016 KISHAN PLATT MD, Ot 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 08/30/2016 KISHAN PLATT MD Ot 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 08/30/2016 KISHAN PLATT MD Ot I87.2 VENOUS INSUFFICIENCY (CHRONIC) (PERIPHER 08/30/2016 KISHAN PLATT MD, Ot 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, 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 08/30/2016 KISHAN PLATT MD, Ot L97.222 NON-PRESSURE CHRONIC ULCER OF LEFT CALF 08/30/2016 KISHAN PLATT MD, Ot D68.51 ACTIVATED PROTEIN C RESISTANCE 08/30/2016 KISHAN PLATT MD Ot E11.622 TYPE 2 DIABETES MELLITUS WITH OTHER SKIN 08/30/2016 KISHAN PLATT MD, Ot 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 08/30/2016 KISHAN PLATT MD Ot I87.2 VENOUS INSUFFICIENCY (CHRONIC) (PERIPHER 08/30/2016 KISHAN PLATT MD, Ot 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, 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 08/30/2016 KISHAN PLATT MD Ot L97.222 NON-PRESSURE CHRONIC ULCER OF LEFT CALF 09/07/2016 KISHAN PLATT MD Ot D68.51 ACTIVATED PROTEIN C RESISTANCE 09/07/2016 KISHAN PLATT MD Ot E11.622 TYPE 2 DIABETES MELLITUS WITH OTHER SKIN 09/07/2016 KISHAN PLATT MD Ot 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 09/07/2016 KISHAN PLATT MD Ot I87.2 VENOUS INSUFFICIENCY (CHRONIC) (PERIPHER 09/07/2016 KISHAN PLATT MD, Ot 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, 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 09/07/2016 KISHAN PLATT MD Ot L97.222 NON-PRESSURE CHRONIC ULCER OF LEFT CALF 09/27/2016 KISHAN PLATT MD, Ot D68.51 ACTIVATED PROTEIN C RESISTANCE 09/27/2016 KISHAN PLATT MD Ot 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 09/27/2016 KISHAN PLATT MD, Ot 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 09/27/2016 KISHAN PLATT MD Ot I87.2 VENOUS INSUFFICIENCY (CHRONIC) (PERIPHER 09/27/2016 KISHAN PLATT MD, Ot 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, 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 09/27/2016 KISHAN PLATT MD, Ot L97.222 NON-PRESSURE CHRONIC ULCER OF LEFT CALF 09/30/2016 KISHAN PLATT MD, Ot D68.51 ACTIVATED PROTEIN C RESISTANCE 09/30/2016 KISHAN PLATT MD Ot 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 [facility] 09/30/2016 KISHAN PLATT MD, Ot 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 09/30/2016 KISHAN PLATT MD Ot I87.2 VENOUS INSUFFICIENCY (CHRONIC) (PERIPHER 09/30/2016 KISHAN PLATT MD, Ot 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, 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 09/30/2016 KISHAN PLATT MD, Ot L97.222 NON-PRESSURE CHRONIC ULCER OF LEFT CALF 11/20/2016 KISHAN PLATT MD, Ot D68.51 ACTIVATED PROTEIN C RESISTANCE 11/20/2016 KISHAN PLATT MD Ot E11.622 TYPE 2 DIABETES MELLITUS WITH OTHER SKIN 11/20/2016 KISHAN PLATT MD Ot 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 [facility] 11/20/2016 KISHAN PLATT MD, Ot 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 11/20/2016 KISHAN PLATT MD Ot I87.2 VENOUS INSUFFICIENCY (CHRONIC) (PERIPHER 11/20/2016 KISHAN PLATT MD, Ot 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, 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 11/20/2016 KISHAN PLATT MD, Ot L97.222 NON-PRESSURE CHRONIC ULCER OF LEFT CALF 11/21/2016 KISHAN PLATT MD, Ot D68.51 ACTIVATED PROTEIN C RESISTANCE 11/21/2016 KISHAN PLATT MD Ot 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 [facility] 11/21/2016 KISHAN PLATT MD, Ot 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 11/21/2016 KISHAN PLATT MD Ot I87.2 VENOUS INSUFFICIENCY (CHRONIC) (PERIPHER 11/21/2016 KISHAN PLATT MD, Ot 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, 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 11/21/2016 KISHAN PLATT MD, Ot L97.222 NON-PRESSURE CHRONIC ULCER OF LEFT CALF 11/21/2016 KISHAN PLATT MD, Ot D68.51 ACTIVATED PROTEIN C RESISTANCE 11/21/2016 KISHAN PLATT MD, Ot E11.622 TYPE 2 DIABETES MELLITUS WITH OTHER SKIN 11/21/2016 KISHAN PLATT MD, Ot 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 [facility] 11/21/2016 KISHAN PLATT MD, Ot 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 11/21/2016 KISHAN PLATT MD, Ot I87.2 VENOUS INSUFFICIENCY (CHRONIC) (PERIPHER 11/21/2016 KISHAN PLATT MD, Ot 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, 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 11/21/2016 KISHAN PLATT MD, Ot L97.222 NON-PRESSURE CHRONIC ULCER OF LEFT CALF 11/22/2016 KISHAN PLATT MD, Ot D68.51 ACTIVATED PROTEIN C RESISTANCE 11/22/2016 KISHAN PLATT MD, Ot 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 [facility] 11/22/2016 KISHAN PLATT MD, Ot 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 11/22/2016 KISHAN PLATT MD Ot I87.2 VENOUS INSUFFICIENCY (CHRONIC) (PERIPHER 11/22/2016 KISHAN PLATT MD, Ot 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, 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 11/22/2016 KISHAN PLATT MD Ot L97.222 NON-PRESSURE CHRONIC ULCER OF LEFT CALF 11/23/2016 KISHAN PLATT MD, Ot E11.622 TYPE 2 DIABETES MELLITUS WITH OTHER SKIN 11/23/2016 KISHAN PLATT MD, Ot 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 11/23/2016 KISHAN PLATT MD Ot I87.2 VENOUS INSUFFICIENCY (CHRONIC) (PERIPHER 11/23/2016 KISHAN PLATT MD, Ot L97.222 NON-PRESSURE CHRONIC ULCER OF LEFT CALF 12/07/2016 KISHAN PLATT MD, Ot E11.622 TYPE 2 DIABETES MELLITUS WITH OTHER SKIN 12/07/2016 KISHAN PLATT MD, Ot 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 12/07/2016 KISHAN PLATT MD Ot I87.2 VENOUS INSUFFICIENCY (CHRONIC) (PERIPHER 12/07/2016 KISHAN PLATT MD, Ot L97.222 NON-PRESSURE CHRONIC ULCER OF LEFT CALF 12/10/2016 KISHAN PLATT MD, Ot D68.51 ACTIVATED PROTEIN C RESISTANCE 12/10/2016 KISHAN PLATT MD Ot 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 12/10/2016 KISHAN PLATT MD, Ot 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 12/10/2016 KISHAN PLATT MD Ot I87.2 VENOUS INSUFFICIENCY (CHRONIC) (PERIPHER 12/10/2016 KISHAN PLATT MD, Ot 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, 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 12/10/2016 KISHAN PLATT MD, Ot L97.222 NON-PRESSURE CHRONIC ULCER OF LEFT CALF 01/04/2017 KISHAN PLATT MD, Ot D68.51 ACTIVATED PROTEIN C RESISTANCE 01/04/2017 KISHAN PLATT MD Ot E11.622 TYPE 2 DIABETES MELLITUS WITH OTHER SKIN 01/04/2017 KISHAN PLATT MD, Ot 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 01/04/2017 KISHAN PLATT MD Ot I87.2 VENOUS INSUFFICIENCY (CHRONIC) (PERIPHER 01/04/2017 KISHAN PLATT MD Ot L97.222 NON-PRESSURE CHRONIC ULCER OF LEFT CALF 01/07/2017 KISHAN PLATT MD Ot E11.622 TYPE 2 DIABETES MELLITUS WITH OTHER SKIN 01/07/2017 KISHAN PLATT MD Ot I87.2 VENOUS INSUFFICIENCY (CHRONIC) (PERIPHER 01/07/2017 KISHAN PLATT MD Ot L97.222 NON-PRESSURE CHRONIC ULCER OF LEFT CALF 01/08/2017 KISHAN PLATT MD Ot E11.622 TYPE 2 DIABETES MELLITUS WITH OTHER SKIN 01/08/2017 KISHAN PLATT MD Ot 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 01/08/2017 KISHAN PLATT MD Ot I87.2 VENOUS INSUFFICIENCY (CHRONIC) (PERIPHER 01/08/2017 KISHAN PLATT MD Ot L97.222 NON-PRESSURE CHRONIC ULCER OF LEFT CALF 01/08/2017 KISHAN PLATT MD Ot E11.622 TYPE 2 DIABETES MELLITUS WITH OTHER SKIN 01/08/2017 KISHAN PLATT MD Ot I87.2 VENOUS INSUFFICIENCY (CHRONIC) (PERIPHER 01/08/2017 KISHAN PLATT MD, Ot L97.222 NON-PRESSURE CHRONIC ULCER OF LEFT CALF 01/10/2017 KISHAN PLATT MD, Ot D68.51 ACTIVATED PROTEIN C RESISTANCE 01/10/2017 KISHAN PLATT MD, Ot E11.622 TYPE 2 DIABETES MELLITUS WITH OTHER SKIN 01/10/2017 KISHAN PLATT MD, Ot 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 01/10/2017 KISHAN PLATT MD, Ot I87.2 VENOUS INSUFFICIENCY (CHRONIC) (PERIPHER 01/10/2017 KISHAN PLATT MD, Ot L97.222 NON-PRESSURE CHRONIC ULCER OF LEFT CALF 01/15/2017 KISHAN PLATT MD, Ot D68.51 ACTIVATED PROTEIN C RESISTANCE 01/15/2017 KISHAN PLATT MD, Ot E11.622 TYPE 2 DIABETES MELLITUS WITH OTHER SKIN 01/15/2017 KISHAN PLATT MD, Ot 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 01/15/2017 KISHAN PLATT MD, Ot I87.2 VENOUS INSUFFICIENCY (CHRONIC) (PERIPHER 01/15/2017 KISHAN PLATT MD, Ot L97.222 NON-PRESSURE CHRONIC ULCER OF LEFT CALF 01/15/2017 KISHAN PLATT MD, Ot E11.622 TYPE 2 DIABETES MELLITUS WITH OTHER SKIN 01/15/2017 KISHAN PLATT MD, Ot I87.2 VENOUS INSUFFICIENCY (CHRONIC) (PERIPHER 01/15/2017 KISHAN PLATT MD, Ot L97.222 NON-PRESSURE CHRONIC ULCER OF LEFT CALF 01/15/2017 KISHAN PLATT MD, Ot E11.622 TYPE 2 DIABETES MELLITUS WITH OTHER SKIN 01/15/2017 KISHAN PLATT MD Ot I87.2 VENOUS INSUFFICIENCY (CHRONIC) (PERIPHER 01/15/2017 KISHAN PLATT MD, Ot L97.222 NON-PRESSURE CHRONIC ULCER OF LEFT CALF 01/16/2017 KISHAN PLATT MD, Ot E11.622 TYPE 2 DIABETES MELLITUS WITH OTHER SKIN 01/16/2017 KISHAN PLATT MD Ot I87.2 VENOUS INSUFFICIENCY (CHRONIC) (PERIPHER 01/16/2017 KISHAN PLATT MD, Ot L97.222 NON-PRESSURE CHRONIC ULCER OF LEFT CALF 01/16/2017 KISHAN PLATT MD, Ot D68.51 ACTIVATED PROTEIN C RESISTANCE 01/16/2017 KISHAN PLATT MD, Ot E11.622 TYPE 2 DIABETES MELLITUS WITH OTHER SKIN 01/16/2017 KISHAN PLATT MD, Ot 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 01/16/2017 KISHAN PLATT MD, Ot I87.2 VENOUS INSUFFICIENCY (CHRONIC) (PERIPHER 01/16/2017 KISHAN PLATT MD, Ot L97.222 NON-PRESSURE CHRONIC ULCER OF LEFT CALF 01/17/2017 KISHAN PLATT MD, Ot D68.51 ACTIVATED PROTEIN C RESISTANCE 01/17/2017 KISHAN PLATT MD, Ot E11.622 TYPE 2 DIABETES MELLITUS WITH OTHER SKIN 01/17/2017 KISHAN PLATT MD, Ot 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 01/17/2017 KISHAN PLATT MD, Ot I87.2 VENOUS INSUFFICIENCY (CHRONIC) (PERIPHER 01/17/2017 KISHAN PLATT MD, Ot L97.222 NON-PRESSURE CHRONIC ULCER OF LEFT CALF 01/19/2017 KISHAN PLATT MD, Ot D68.51 ACTIVATED PROTEIN C RESISTANCE 01/19/2017 KISHAN PLATT MD, Ot E11.622 TYPE 2 DIABETES MELLITUS WITH OTHER SKIN 01/19/2017 KISHAN PLATT MD, Ot 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 01/19/2017 KISHAN PLATT MD, Ot I87.2 VENOUS INSUFFICIENCY (CHRONIC) (PERIPHER 01/19/2017 KISHAN PLATT MD, Ot L97.222 NON-PRESSURE CHRONIC ULCER OF LEFT CALF 01/23/2017 KISHAN PLATT MD, Ot D68.51 ACTIVATED PROTEIN C RESISTANCE 01/23/2017 KISHAN PLATT MD, Ot E11.622 TYPE 2 DIABETES MELLITUS WITH OTHER SKIN 01/23/2017 KISHAN PLATT MD Ot 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 01/23/2017 KISHAN PLATT MD Ot I87.2 VENOUS INSUFFICIENCY (CHRONIC) (PERIPHER 01/23/2017 KISHAN PLATT MD, Ot L97.222 NON-PRESSURE CHRONIC ULCER OF LEFT CALF 01/24/2017 KISHAN PLATT MD, Ot D68.51 ACTIVATED PROTEIN C RESISTANCE 01/24/2017 KISHAN PLATT MD, Ot E11.622 TYPE 2 DIABETES MELLITUS WITH OTHER SKIN 01/24/2017 KISHAN PLATT MD, Ot 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 01/24/2017 KISHAN PLATT MD Ot I87.2 VENOUS INSUFFICIENCY (CHRONIC) (PERIPHER 01/24/2017 KISHAN PLATT MD, Ot L97.222 NON-PRESSURE CHRONIC ULCER OF LEFT CALF 01/31/2017 KISHAN PLATT MD Ot D68.51 ACTIVATED PROTEIN C RESISTANCE 01/31/2017 KISHAN PLATT MD, Ot E11.622 TYPE 2 DIABETES MELLITUS WITH OTHER SKIN 01/31/2017 KISHAN PLATT MD, Ot 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 01/31/2017 KISHAN PLATT MD Ot I87.2 VENOUS INSUFFICIENCY (CHRONIC) (PERIPHER 01/31/2017 KISHAN PLATT MD, Ot L97.222 NON-PRESSURE CHRONIC ULCER OF LEFT CALF 01/31/2017 KISHAN PLATT MD, Ot D68.51 ACTIVATED PROTEIN C RESISTANCE 01/31/2017 KISHAN PLATT MD Ot E11.622 TYPE 2 DIABETES MELLITUS WITH OTHER SKIN 01/31/2017 KISHAN PLATT MD Ot 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 01/31/2017 KISHAN PLATT MD Ot I87.2 VENOUS INSUFFICIENCY (CHRONIC) (PERIPHER 01/31/2017 KISHAN PLATT MD, Ot L97.222 NON-PRESSURE CHRONIC ULCER OF LEFT CALF 01/31/2017 KISHAN PLATT MD, Ot D68.51 ACTIVATED PROTEIN C RESISTANCE 01/31/2017 KISHAN PLATT MD Ot E11.622 TYPE 2 DIABETES MELLITUS WITH OTHER SKIN 01/31/2017 KISHAN PLATT MD, Ot 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 01/31/2017 KISHAN PLATT MD Ot I87.2 VENOUS INSUFFICIENCY (CHRONIC) (PERIPHER 01/31/2017 KISHAN PLATT MD, Ot L97.222 NON-PRESSURE CHRONIC ULCER OF LEFT CALF 01/31/2017 KISHAN PLATT MD Ot D68.51 ACTIVATED PROTEIN C RESISTANCE 01/31/2017 KISHAN PLATT MD Ot E11.622 TYPE 2 DIABETES MELLITUS WITH OTHER SKIN 01/31/2017 KISHAN PLATT MD Ot 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 01/31/2017 KISHAN PLATT MD Ot I87.2 VENOUS INSUFFICIENCY (CHRONIC) (PERIPHER 01/31/2017 KISHAN PLATT MD Ot L97.222 NON-PRESSURE CHRONIC ULCER OF LEFT CALF 02/06/2017 ITALO RYAN MD Ot 729.5 PAIN IN LIMB 02/06/2017 ITALO RYAN MD Ot V12.51 HX-VENOUS THROMBOSIS EMBOLISM 02/06/2017 KISHAN PLATT MD, Ot D68.51 ACTIVATED PROTEIN C RESISTANCE 02/06/2017 KISHAN LPATT MD Ot 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 [facility] 02/06/2017 KISHAN PLATT MD, Ot 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 02/06/2017 KISHAN PLATT MD Ot L97.222 NON-PRESSURE CHRONIC ULCER OF LEFT CALF 02/06/2017 KISHAN PLATT MD, Ot D68.51 ACTIVATED PROTEIN C RESISTANCE 02/06/2017 KISHAN PLATT MD Ot 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 [facility] 02/06/2017 KISHAN PLATT MD, Ot 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 02/06/2017 KISHAN PLATT MD Ot L97.222 NON-PRESSURE CHRONIC ULCER OF LEFT CALF 02/06/2017 KISHAN PLATT MD, Ot D68.51 ACTIVATED PROTEIN C RESISTANCE 02/06/2017 KISHAN PLATT MD Ot 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 [facility] 02/06/2017 KISHAN PLATT MD, Ot 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 02/06/2017 KISHAN PLATT MD Ot 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, 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 02/06/2017 KISHAN PLATT MD Ot L97.222 NON-PRESSURE CHRONIC ULCER OF LEFT CALF 02/06/2017 KISHAN PLATT MD, Ot 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 02/06/2017 RUDY JOHNSON MD Ot E66.9 OBESITY, UNSPECIFIED 02/06/2017 RUDY JOHNSON MD Ot I10 ESSENTIAL (PRIMARY) HYPERTENSION 02/06/2017 RUDY JOHNSON MD Ot L97.201 NON-PRS CHRONIC ULCER OF UNSP CALF LIMIT 02/06/2017 RUDY JOHNSON MD Ot I10 ESSENTIAL (PRIMARY) HYPERTENSION 02/06/2017 RUDY JOHNSON MD Ot I82.402 ACUTE EMBOLISM AND THOMBOS UNSP DEEP VEI 02/06/2017 KISHAN PLATT MD, Ot D68.51 ACTIVATED PROTEIN C RESISTANCE 02/06/2017 KISHAN PLATT MD Ot 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 02/06/2017 KISHAN PLATT MD, Ot 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, 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 02/06/2017 KISHAN PLATT MD, Ot L97.222 NON-PRESSURE CHRONIC ULCER OF LEFT CALF 02/06/2017 KISHAN PLATT MD, Ot D68.51 ACTIVATED PROTEIN C RESISTANCE 02/06/2017 KISHAN PLATT MD Ot 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 02/06/2017 KISHAN PLATT MD Ot I87.2 VENOUS INSUFFICIENCY (CHRONIC) (PERIPHER 02/06/2017 KISHAN PLATT MD, Ot 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, 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 02/06/2017 KISHAN PLATT MD, Ot L97.222 NON-PRESSURE CHRONIC ULCER OF LEFT CALF 02/06/2017 KAT WHITMAN FACC, SHOAIB FACP CCDS Ot E11.9 TYPE 2 DIABETES MELLITUS WITHOUT COMPLIC 02/06/2017 KAT WHITMAN FACC, ALI FACP CCDS Ot G47.30 SLEEP APNEA, UNSPECIFIED 02/06/2017 KAT WHITMAN FACC, ALI FACP CCDS Ot R00.2 PALPITATIONS 02/06/2017 KAT WHITMAN FACC, ALI FACP CCDS Ot R06.02 SHORTNESS OF BREATH 02/06/2017 KAT WHITMAN FACC, ALI FACP CCDS Ot R07.89 OTHER CHEST PAIN 02/06/2017 KAT WHITMAN FACC, ALI FACP CCDS Ot R42 DIZZINESS AND GIDDINESS 02/06/2017 KAT WHITMAN FACC, ALI FACP CCDS Ot E11.9 TYPE 2 DIABETES MELLITUS WITHOUT COMPLIC 02/06/2017 KAT WHITMAN FACC, ALI FACP CCDS Ot G47.30 SLEEP APNEA, UNSPECIFIED 02/06/2017 KAT WHITMAN FACC, ALI FACP CCDS Ot R00.2 PALPITATIONS 02/06/2017 KAT WHITMAN FACC, ALI FACP CCDS Ot R06.02 SHORTNESS OF BREATH 02/06/2017 KAT WHITMAN FACC, ALI FACP CCDS Ot R07.89 OTHER CHEST PAIN 02/06/2017 KAT WHITMAN FACC, ALI FACP CCDS Ot R42 DIZZINESS AND GIDDINESS 02/06/2017 KISHAN PLATT MD Ot E11.622 TYPE 2 DIABETES MELLITUS WITH OTHER SKIN 02/06/2017 KISHAN PLATT MD, Ot 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, 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 02/06/2017 KISHAN PLATT MD, Ot L97.222 NON-PRESSURE CHRONIC ULCER OF LEFT CALF 02/06/2017 KISHAN PLATT MD, Ot D68.51 ACTIVATED PROTEIN C RESISTANCE 02/06/2017 KISHAN PLATT MD, Ot E11.622 TYPE 2 DIABETES MELLITUS WITH OTHER SKIN 02/06/2017 KISHAN PLATT MD, Ot 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 02/06/2017 KISHAN PLATT MD, Ot I87.2 VENOUS INSUFFICIENCY (CHRONIC) (PERIPHER 02/06/2017 KISHAN PLATT MD, Ot 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, 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 02/06/2017 KISHAN PLATT MD, Ot L97.222 NON-PRESSURE CHRONIC ULCER OF LEFT CALF 02/06/2017 KISHAN PLATT MD, Ot E11.622 TYPE 2 DIABETES MELLITUS WITH OTHER SKIN 02/06/2017 KISHAN PLATT MD, Ot 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 02/06/2017 KISHAN PLATT MD Ot I87.2 VENOUS INSUFFICIENCY (CHRONIC) (PERIPHER 02/06/2017 KISHAN PLATT MD, Ot L97.222 NON-PRESSURE CHRONIC ULCER OF LEFT CALF 02/06/2017 KISHAN PLATT MD, Ot D68.51 ACTIVATED PROTEIN C RESISTANCE 02/06/2017 KISHAN PLATT MD, Ot E11.622 TYPE 2 DIABETES MELLITUS WITH OTHER SKIN 02/06/2017 KISHAN PLATT MD, Ot 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 02/06/2017 KISHAN PLATT MD Ot I87.2 VENOUS INSUFFICIENCY (CHRONIC) (PERIPHER 02/06/2017 KISHAN PLATT MD, Ot L97.222 NON-PRESSURE CHRONIC ULCER OF LEFT CALF 02/06/2017 KISHAN PLATT MD, Ot E11.622 TYPE 2 DIABETES MELLITUS WITH OTHER SKIN 02/06/2017 KISHAN PLATT MD Ot I87.2 VENOUS INSUFFICIENCY (CHRONIC) (PERIPHER 02/06/2017 KISHAN PLATT MD, Ot L97.222 NON-PRESSURE CHRONIC ULCER OF LEFT CALF 02/06/2017 KISHAN PLATT MD, Ot D68.51 ACTIVATED PROTEIN C RESISTANCE 02/06/2017 KISHAN PLATT MD Ot E11.622 TYPE 2 DIABETES MELLITUS WITH OTHER SKIN 02/06/2017 KISHAN PLATT MD Ot 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 02/06/2017 KISHAN PLATT MD, Ot I87.2 VENOUS INSUFFICIENCY (CHRONIC) (PERIPHER 02/06/2017 KISHAN PLATT MD, Ot L97.222 NON-PRESSURE CHRONIC ULCER OF LEFT CALF 02/06/2017 KISHAN PLATT MD, Ot E11.622 TYPE 2 DIABETES MELLITUS WITH OTHER SKIN 02/06/2017 KISHAN PLATT MD Ot I87.2 VENOUS INSUFFICIENCY (CHRONIC) (PERIPHER 02/06/2017 KISHAN PLATT MD, Ot L97.222 NON-PRESSURE CHRONIC ULCER OF LEFT CALF 02/06/2017 KISHAN PLATT MD, Ot D68.51 ACTIVATED PROTEIN C RESISTANCE 02/06/2017 KISHAN PLATT MD, Ot E11.622 TYPE 2 DIABETES MELLITUS WITH OTHER SKIN 02/06/2017 KISHAN PLATT MD, Ot 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 02/06/2017 KISHAN PLATT MD, Ot I87.2 VENOUS INSUFFICIENCY (CHRONIC) (PERIPHER 02/06/2017 KISHAN PLATT MD Ot L97.222 NON-PRESSURE CHRONIC ULCER OF LEFT CALF 02/06/2017 KISHAN PLATT MD, Ot E11.622 TYPE 2 DIABETES MELLITUS WITH OTHER SKIN 02/06/2017 KISHAN PLATT MD, Ot I87.2 VENOUS INSUFFICIENCY (CHRONIC) (PERIPHER 02/06/2017 KISHAN PLATT MD, Ot L97.222 NON-PRESSURE CHRONIC ULCER OF LEFT CALF 02/06/2017 KISHAN PLATT MD, Ot D68.51 ACTIVATED PROTEIN C RESISTANCE 02/06/2017 KISHAN PLATT MD, Ot E11.622 TYPE 2 DIABETES MELLITUS WITH OTHER SKIN 02/06/2017 KISHAN PLATT MD, Ot 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 02/06/2017 KISHAN PLATT MD Ot I87.2 VENOUS INSUFFICIENCY (CHRONIC) (PERIPHER 02/06/2017 KISHAN PLATT MD, Ot L97.222 NON-PRESSURE CHRONIC ULCER OF LEFT CALF 02/06/2017 KISHAN PLATT MD, Ot E11.622 TYPE 2 DIABETES MELLITUS WITH OTHER SKIN 02/06/2017 KISHAN PLATT MD Ot I87.2 VENOUS INSUFFICIENCY (CHRONIC) (PERIPHER 02/06/2017 KISHAN PLATT MD, Ot L97.222 NON-PRESSURE CHRONIC ULCER OF LEFT CALF 02/06/2017 KISHAN PLATT MD, Ot D68.51 ACTIVATED PROTEIN C RESISTANCE 02/06/2017 KISHAN PLATT MD Ot E11.622 TYPE 2 DIABETES MELLITUS WITH OTHER SKIN 02/06/2017 KISHAN PLATT MD, Ot 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 02/06/2017 KISHAN PLATT MD, Ot I87.2 VENOUS INSUFFICIENCY (CHRONIC) (PERIPHER 02/06/2017 KISHAN PLATT MD, Ot L97.222 NON-PRESSURE CHRONIC ULCER OF LEFT CALF 02/06/2017 KISHAN PLATT MD, Ot D68.51 ACTIVATED PROTEIN C RESISTANCE 02/06/2017 KISHAN PLATT MD, Ot E11.622 TYPE 2 DIABETES MELLITUS WITH OTHER SKIN 02/06/2017 KISHAN PLATT MD, Ot 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 02/06/2017 KISHAN PLATT MD, Ot I87.2 VENOUS INSUFFICIENCY (CHRONIC) (PERIPHER 02/06/2017 KISHAN PLATT MD, Ot L97.222 NON-PRESSURE CHRONIC ULCER OF LEFT CALF 02/06/2017 KISHAN PLATT MD, Ot D68.51 ACTIVATED PROTEIN C RESISTANCE 02/06/2017 KISHAN PLATT MD, Ot E11.622 TYPE 2 DIABETES MELLITUS WITH OTHER SKIN 02/06/2017 KISHAN PLATT MD, Ot 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 02/06/2017 KISHAN PLATT MD Ot I87.2 VENOUS INSUFFICIENCY (CHRONIC) (PERIPHER 02/06/2017 KISHAN PLATT MD, Ot L97.222 NON-PRESSURE CHRONIC ULCER OF LEFT CALF 02/06/2017 KISHAN PLATT MD, Ot D68.51 ACTIVATED PROTEIN C RESISTANCE 02/06/2017 KISHAN PLATT MD, Ot E11.622 TYPE 2 DIABETES MELLITUS WITH OTHER SKIN 02/06/2017 KISHAN PLATT MD, Ot 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 02/06/2017 KISHAN PLATT MD, Ot I87.2 VENOUS INSUFFICIENCY (CHRONIC) (PERIPHER 02/06/2017 KISHAN PLATT MD, Ot L97.222 NON-PRESSURE CHRONIC ULCER OF LEFT CALF 02/06/2017 KISHAN PLATT MD, Ot D68.51 ACTIVATED PROTEIN C RESISTANCE 02/06/2017 KISHAN PLATT MD Ot E11.622 TYPE 2 DIABETES MELLITUS WITH OTHER SKIN 02/06/2017 KISHAN PLATT MD Ot 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 02/06/2017 KISHAN PLATT MD Ot I87.2 VENOUS INSUFFICIENCY (CHRONIC) (PERIPHER 02/06/2017 KISHAN PLATT MD Ot L97.222 NON-PRESSURE CHRONIC ULCER OF LEFT CALF 02/06/2017 KISHAN PLATT MD, Ot D68.51 ACTIVATED PROTEIN C RESISTANCE 02/06/2017 KISHAN PLATT MD Ot E11.622 TYPE 2 DIABETES MELLITUS WITH OTHER SKIN 02/06/2017 KISHAN PLATT MD Ot 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 02/06/2017 KISHAN PLATT MD Ot I87.2 VENOUS INSUFFICIENCY (CHRONIC) (PERIPHER 02/06/2017 KISHAN PLATT MD, Ot L97.222 NON-PRESSURE CHRONIC ULCER OF LEFT CALF 02/06/2017 KISHAN PLATT MD, Ot D68.51 ACTIVATED PROTEIN C RESISTANCE 02/06/2017 KISHAN PLATT MD, Ot E11.622 TYPE 2 DIABETES MELLITUS WITH OTHER SKIN 02/06/2017 KISHAN PLATT MD Ot 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 02/06/2017 KISHAN PLATT MD Ot I87.2 VENOUS INSUFFICIENCY (CHRONIC) (PERIPHER 02/06/2017 KISHAN PLATT MD Ot L97.222 NON-PRESSURE CHRONIC ULCER OF LEFT CALF 02/06/2017 KISHAN PLATT MD, Ot D68.51 ACTIVATED PROTEIN C RESISTANCE 02/06/2017 KISHAN PLATT MD Ot E11.622 TYPE 2 DIABETES MELLITUS WITH OTHER SKIN 02/06/2017 KISHAN PLATT MD Ot 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 02/06/2017 KISHAN PLATT MD Ot I87.2 VENOUS INSUFFICIENCY (CHRONIC) (PERIPHER 02/06/2017 KISHAN PLATT MD Ot L97.222 NON-PRESSURE CHRONIC ULCER OF LEFT CALF 02/21/2017 KISHAN PLATT MD, Ot D68.51 ACTIVATED PROTEIN C RESISTANCE 02/21/2017 KISHAN PLATT MD Ot E11.622 TYPE 2 DIABETES MELLITUS WITH OTHER SKIN 02/21/2017 KISHAN PLATT MD Ot 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 02/21/2017 KISHAN PLATT MD Ot I87.2 VENOUS INSUFFICIENCY (CHRONIC) (PERIPHER 02/21/2017 KISHAN PLATT MD Ot L97.222 NON-PRESSURE CHRONIC ULCER OF LEFT CALF 02/21/2017 KISHAN PLATT MD, Ot D68.51 ACTIVATED PROTEIN C RESISTANCE 02/21/2017 KISHAN PLATT MD, Ot E11.622 TYPE 2 DIABETES MELLITUS WITH OTHER SKIN 02/21/2017 KISHAN PLATT MD, Ot 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 02/21/2017 KISHAN PLATT MD, Ot I87.2 VENOUS INSUFFICIENCY (CHRONIC) (PERIPHER 02/21/2017 KISHAN PLATT MD, Ot L97.222 NON-PRESSURE CHRONIC ULCER OF LEFT CALF 03/07/2017 KISHAN PLATT MD, Ot D68.51 ACTIVATED PROTEIN C RESISTANCE 03/07/2017 KISHAN PLATT MD, Ot E11.622 TYPE 2 DIABETES MELLITUS WITH OTHER SKIN 03/07/2017 KISHAN PLATT MD, Ot 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 03/07/2017 KISHAN PLATT MD, Ot I87.332 CHRONIC VENOUS HTN W ULCER AND INFLAMMAT 03/07/2017 KISHAN PLATT MD Ot L97.222 NON-PRESSURE CHRONIC ULCER OF LEFT CALF 03/10/2017 KISHAN PLATT MD, Ot D68.51 ACTIVATED PROTEIN C RESISTANCE 03/10/2017 KISHAN PLATT MD, Ot E11.622 TYPE 2 DIABETES MELLITUS WITH OTHER SKIN 03/10/2017 KISHAN PLATT MD Ot I87.332 CHRONIC VENOUS HTN W ULCER AND INFLAMMAT 03/10/2017 KISHAN PLATT MD, Ot L97.222 NON-PRESSURE CHRONIC ULCER OF LEFT CALF 03/13/2017 KISHAN PLATT MD, Ot D68.51 ACTIVATED PROTEIN C RESISTANCE 03/13/2017 KISHAN PLATT MD, Ot E11.622 TYPE 2 DIABETES MELLITUS WITH OTHER SKIN 03/13/2017 KISHAN PLATT MD, Ot 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 03/13/2017 KISHAN PLATT MD Ot I87.332 CHRONIC VENOUS HTN W ULCER AND INFLAMMAT 03/13/2017 KISHAN PLATT MD Ot L97.222 NON-PRESSURE CHRONIC ULCER OF LEFT CALF 03/21/2017 KISHAN PLATT MD, Ot D68.51 ACTIVATED PROTEIN C RESISTANCE 03/21/2017 KISHAN PLATT MD, Ot E11.622 TYPE 2 DIABETES MELLITUS WITH OTHER SKIN 03/21/2017 KISHAN PLATT MD, Ot I87.332 CHRONIC VENOUS HTN W ULCER AND INFLAMMAT 03/21/2017 KISHAN PLATT MD Ot L97.222 NON-PRESSURE CHRONIC ULCER OF LEFT CALF 04/05/2017 KISHAN PLATT MD, Ot D68.51 ACTIVATED PROTEIN C RESISTANCE 04/05/2017 KISHAN PLATT MD, Ot E11.622 TYPE 2 DIABETES MELLITUS WITH OTHER SKIN 04/05/2017 KISHAN PLATT MD, Ot I87.332 CHRONIC VENOUS HTN W ULCER AND INFLAMMAT 04/05/2017 KISHAN PLATT MD, Ot L97.222 NON-PRESSURE CHRONIC ULCER OF LEFT CALF 04/07/2017 KISHAN PLATT MD, Ot D68.51 ACTIVATED PROTEIN C RESISTANCE 04/07/2017 KISHAN PLATT MD, Ot E11.622 TYPE 2 DIABETES MELLITUS WITH OTHER SKIN 04/07/2017 KISHAN PLATT MD, Ot 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 04/07/2017 KISHAN PLATT MD Ot I87.332 CHRONIC VENOUS HTN W ULCER AND INFLAMMAT 04/07/2017 KISHAN PLATT MD Ot L97.222 NON-PRESSURE CHRONIC ULCER OF LEFT CALF 04/08/2017 KISHAN PLATT MD, Ot D68.51 ACTIVATED PROTEIN C RESISTANCE 04/08/2017 KISHAN PLATT MD, Ot E11.622 TYPE 2 DIABETES MELLITUS WITH OTHER SKIN 04/08/2017 KISHAN PLATT MD, Ot 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 04/08/2017 KISHAN PLATT MD Ot I87.332 CHRONIC VENOUS HTN W ULCER AND INFLAMMAT 04/08/2017 KISHAN PLATT MD Ot L97.222 NON-PRESSURE CHRONIC ULCER OF LEFT CALF 04/11/2017 KISHAN PLATT MD, Ot D68.51 ACTIVATED PROTEIN C RESISTANCE 04/11/2017 KISHAN PLATT MD, Ot E11.622 TYPE 2 DIABETES MELLITUS WITH OTHER SKIN 04/11/2017 KISHAN PLATT MD, Ot 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 04/11/2017 KISHAN PLATT MD, Ot I87.332 CHRONIC VENOUS HTN W ULCER AND INFLAMMAT 04/11/2017 KISHAN PLATT MD, Ot L97.222 NON-PRESSURE CHRONIC ULCER OF LEFT CALF 04/11/2017 KISHAN PLATT MD, Ot D68.51 ACTIVATED PROTEIN C RESISTANCE 04/11/2017 KISHAN PLATT MD, Ot E11.622 TYPE 2 DIABETES MELLITUS WITH OTHER SKIN 04/11/2017 KISHAN PLATT MD, Ot I87.332 CHRONIC VENOUS HTN W ULCER AND INFLAMMAT 04/11/2017 KISHAN PLATT MD, Ot L97.222 NON-PRESSURE CHRONIC ULCER OF LEFT CALF 04/15/2017 KISHAN PLATT MD, Ot D68.51 ACTIVATED PROTEIN C RESISTANCE 04/15/2017 KISHAN PLATT MD, Ot E11.622 TYPE 2 DIABETES MELLITUS WITH OTHER SKIN 04/15/2017 KISHAN PLATT MD, Ot 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 04/15/2017 KISHAN PLATT MD, Ot I87.332 CHRONIC VENOUS HTN W ULCER AND INFLAMMAT 04/15/2017 KISHAN PLATT MD, Ot L97.222 NON-PRESSURE CHRONIC ULCER OF LEFT CALF 04/16/2017 KISHAN PLATT MD, Ot D68.51 ACTIVATED PROTEIN C RESISTANCE 04/16/2017 KISHAN PLATT MD, Ot E11.622 TYPE 2 DIABETES MELLITUS WITH OTHER SKIN 04/16/2017 KISHAN PLATT MD, Ot I87.332 CHRONIC VENOUS HTN W ULCER AND INFLAMMAT 04/16/2017 KISHAN PLATT MD, Ot L97.222 NON-PRESSURE CHRONIC ULCER OF LEFT CALF 04/25/2017 KISHAN PLATT MD, Ot D68.51 ACTIVATED PROTEIN C RESISTANCE 04/25/2017 KISHAN PLATT MD, Ot E11.622 TYPE 2 DIABETES MELLITUS WITH OTHER SKIN 04/25/2017 KISHAN PLATT MD, Ot 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 04/25/2017 KISHAN PLATT MD Ot I87.332 CHRONIC VENOUS HTN W ULCER AND INFLAMMAT 04/25/2017 KISHAN PLATT MD, Ot L97.222 NON-PRESSURE CHRONIC ULCER OF LEFT CALF 04/26/2017 KISHAN PLATT MD, Ot D68.51 ACTIVATED PROTEIN C RESISTANCE 04/26/2017 KISHAN PLATT MD, Ot E11.622 TYPE 2 DIABETES MELLITUS WITH OTHER SKIN 04/26/2017 KISHAN PLATT MD, Ot 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 04/26/2017 KISHAN PLATT MD Ot I87.332 CHRONIC VENOUS HTN W ULCER AND INFLAMMAT 04/26/2017 KISHAN PLATT MD, Ot L97.222 NON-PRESSURE CHRONIC ULCER OF LEFT CALF 04/28/2017 KISHAN PLATT MD, Ot D68.51 ACTIVATED PROTEIN C RESISTANCE 04/28/2017 KISHAN PLATT MD, Ot E11.622 TYPE 2 DIABETES MELLITUS WITH OTHER SKIN 04/28/2017 KISHAN PLATT MD, Ot 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 04/28/2017 KISHAN PLATT MD, Ot I87.332 CHRONIC VENOUS HTN W ULCER AND INFLAMMAT 04/28/2017 KISHAN PLATT MD, Ot L97.222 NON-PRESSURE CHRONIC ULCER OF LEFT CALF 05/17/2017 KISHAN PLATT MD, Ot D68.51 ACTIVATED PROTEIN C RESISTANCE 05/17/2017 KISHAN PLATT MD, Ot E11.622 TYPE 2 DIABETES MELLITUS WITH OTHER SKIN 05/17/2017 KISHAN PLATT MD, Ot I87.332 CHRONIC VENOUS HTN W ULCER AND INFLAMMAT 05/17/2017 KISHAN PLATT MD, Ot L97.222 NON-PRESSURE CHRONIC ULCER OF LEFT CALF 05/17/2017 KISHAN PLATT MD, Ot D68.51 ACTIVATED PROTEIN C RESISTANCE 05/17/2017 KISHAN PLATT MD, Ot E11.622 TYPE 2 DIABETES MELLITUS WITH OTHER SKIN 05/17/2017 KISHAN PLATT MD, Ot 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 05/17/2017 KISHAN PLATT MD Ot I87.332 CHRONIC VENOUS HTN W ULCER AND INFLAMMAT 05/17/2017 KISHAN PLATT MD Ot L97.222 NON-PRESSURE CHRONIC ULCER OF LEFT CALF 05/17/2017 KISHAN PLATT MD, Ot D68.51 ACTIVATED PROTEIN C RESISTANCE 05/17/2017 KISHAN PLATT MD Ot E11.622 TYPE 2 DIABETES MELLITUS WITH OTHER SKIN 05/17/2017 KISHAN PLATT MD Ot 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 05/17/2017 KISHAN PLATT MD Ot I87.332 CHRONIC VENOUS HTN W ULCER AND INFLAMMAT 05/17/2017 KISHAN PLATT MD Ot L97.222 NON-PRESSURE CHRONIC ULCER OF LEFT CALF 05/23/2017 GIULIA MD, KISHAN G Ot D68.51 ACTIVATED PROTEIN C RESISTANCE 05/23/2017 KISHAN PLATT MD Ot E11.622 TYPE 2 DIABETES MELLITUS WITH OTHER SKIN 05/23/2017 KISHAN PLATT MD Ot I87.332 CHRONIC VENOUS HTN W ULCER AND INFLAMMAT 05/23/2017 KISHAN PLATT MD Ot L97.222 NON-PRESSURE CHRONIC ULCER OF LEFT CALF 05/30/2017 KISHAN PLATT MD, Ot D68.51 ACTIVATED PROTEIN C RESISTANCE 05/30/2017 KISHAN PLATT MD Ot E11.622 TYPE 2 DIABETES MELLITUS WITH OTHER SKIN 05/30/2017 KISHAN PLATT MD Ot I87.332 CHRONIC VENOUS HTN W ULCER AND INFLAMMAT 05/30/2017 KISHAN PLATT MD Ot L97.222 NON-PRESSURE CHRONIC ULCER OF LEFT CALF 06/03/2017 KISHAN PLATT MD, Ot D68.51 ACTIVATED PROTEIN C RESISTANCE 06/03/2017 KISHAN PLATT MD, Ot E11.622 TYPE 2 DIABETES MELLITUS WITH OTHER SKIN 06/03/2017 KISHAN PLATT MD Ot I87.332 CHRONIC VENOUS HTN W ULCER AND INFLAMMAT 06/03/2017 KISHAN PLATT MD Ot L03.116 CELLULITIS OF LEFT LOWER LIMB 06/03/2017 KISHAN PLATT MD Ot L97.222 NON-PRESSURE CHRONIC ULCER OF LEFT CALF 06/05/2017 KISHAN PLATT MD, Ot D68.51 ACTIVATED PROTEIN C RESISTANCE 06/05/2017 KISHAN PLATT MD Ot E11.622 TYPE 2 DIABETES MELLITUS WITH OTHER SKIN 06/05/2017 KISHAN PLATT MD Ot 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 06/05/2017 KISHAN PLATT MD Ot I87.332 CHRONIC VENOUS HTN W ULCER AND INFLAMMAT 06/05/2017 KISHAN PLATT MD Ot L97.222 NON-PRESSURE CHRONIC ULCER OF LEFT CALF 06/06/2017 KISHAN PLATT MD, Ot D68.51 ACTIVATED PROTEIN C RESISTANCE 06/06/2017 KISHAN PLATT MD Ot E11.622 TYPE 2 DIABETES MELLITUS WITH OTHER SKIN 06/06/2017 KISHAN PLATT MD Ot I87.332 CHRONIC VENOUS HTN W ULCER AND INFLAMMAT 06/06/2017 KISHAN PLATT MD Ot L03.116 CELLULITIS OF LEFT LOWER LIMB 06/06/2017 KISHAN PLATT MD Ot L97.222 NON-PRESSURE CHRONIC ULCER OF LEFT CALF 06/07/2017 CONNOR WHITMAN, ITALO Giraldo Ot 729.5 PAIN IN LIMB 06/07/2017 ITALO RYAN MD Ot V12.51 HX-VENOUS THROMBOSIS EMBOLISM 06/07/2017 KISHAN PLATT MD, Ot D68.51 ACTIVATED PROTEIN C RESISTANCE 06/07/2017 KISHAN PLATT MD Ot 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 06/07/2017 KISHAN PLATT MD, Ot 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 06/07/2017 KISHAN PLATT MD Ot L97.222 NON-PRESSURE CHRONIC ULCER OF LEFT CALF 06/07/2017 KISHAN PLATT MD, Ot D68.51 ACTIVATED PROTEIN C RESISTANCE 06/07/2017 KISHAN PLATT MD Ot 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 [facility] 06/07/2017 KISHAN PLATT MD, Ot 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 06/07/2017 KISHAN PLATT MD Ot L97.222 NON-PRESSURE CHRONIC ULCER OF LEFT CALF 06/07/2017 KISHAN PLATT MD, Ot D68.51 ACTIVATED PROTEIN C RESISTANCE 06/07/2017 KISHAN PLATT MD Ot 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 [facility] 06/07/2017 KISHAN PLATT MD Ot 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 06/07/2017 KISHAN PLATT MD Ot 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, 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 06/07/2017 KISHAN PLATT MD Ot L97.222 NON-PRESSURE CHRONIC ULCER OF LEFT CALF 06/07/2017 KISHAN PLATT MD Ot 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 06/07/2017 RUDY JOHNSON MD Ot E66.9 OBESITY, UNSPECIFIED 06/07/2017 RUDY JOHNSON MD Ot I10 ESSENTIAL (PRIMARY) HYPERTENSION 06/07/2017 RUDY JOHNSON MD Ot L97.201 NON-PRS CHRONIC ULCER OF UNSP CALF LIMIT 06/07/2017 RUDY JOHNSON MD Ot I10 ESSENTIAL (PRIMARY) HYPERTENSION 06/07/2017 RUDY JOHNSON MD Ot I82.402 ACUTE EMBOLISM AND THOMBOS UNSP DEEP VEI 06/07/2017 KISHAN PLATT MD, Ot D68.51 ACTIVATED PROTEIN C RESISTANCE 06/07/2017 KISHAN PLATT MD, Ot 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 06/07/2017 KISHAN PLATT MD Ot 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, 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 06/07/2017 KISHAN PLATT MD Ot L97.222 NON-PRESSURE CHRONIC ULCER OF LEFT CALF 06/07/2017 KISHAN PLATT MD, Ot D68.51 ACTIVATED PROTEIN C RESISTANCE 06/07/2017 KISHAN PLATT MD, Ot 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 06/07/2017 KISHAN PLATT MD Ot I87.2 VENOUS INSUFFICIENCY (CHRONIC) (PERIPHER 06/07/2017 KISHAN PLATT MD, Ot 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, 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 06/07/2017 KISHAN PLATT MD, Ot L97.222 NON-PRESSURE CHRONIC ULCER OF LEFT CALF 06/07/2017 KAT WHITMAN FACC, SHOAIB FACP CCDS Ot E11.9 TYPE 2 DIABETES MELLITUS WITHOUT COMPLIC 06/07/2017 KAT WHITMAN FACC, ALI FACP CCDS Ot G47.30 SLEEP APNEA, UNSPECIFIED 06/07/2017 KAT WHITMAN FACC, ALI FACP CCDS Ot R00.2 PALPITATIONS 06/07/2017 KAT WHITMAN FACC, ALI FACP CCDS Ot R06.02 SHORTNESS OF BREATH 06/07/2017 KAT WHITMAN FACC, ALI FACP CCDS Ot R07.89 OTHER CHEST PAIN 06/07/2017 KAT WHITMAN FACC, ALI FACP CCDS Ot R42 DIZZINESS AND GIDDINESS 06/07/2017 KAT WHITMAN FACC, ALI FACP CCDS Ot E11.9 TYPE 2 DIABETES MELLITUS WITHOUT COMPLIC 06/07/2017 KAT WHITMAN FACC, ALI FACP CCDS Ot G47.30 SLEEP APNEA, UNSPECIFIED 06/07/2017 KAT WHITMAN FACC, ALI FACP CCDS Ot R00.2 PALPITATIONS 06/07/2017 KAT WHITMAN FACC, ALI FACP CCDS Ot R06.02 SHORTNESS OF BREATH 06/07/2017 KAT WHITMAN FACC, ALI FACP CCDS Ot R07.89 OTHER CHEST PAIN 06/07/2017 KAT WHITMAN FACC, SHOAIB ARIZA CCDS Ot R42 DIZZINESS AND GIDDINESS 06/07/2017 KISHAN PLATT MD, Ot E11.622 TYPE 2 DIABETES MELLITUS WITH OTHER SKIN 06/07/2017 KISHAN PLATT MD, Ot 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, 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 06/07/2017 KISHAN PLATT MD, Ot L97.222 NON-PRESSURE CHRONIC ULCER OF LEFT CALF 06/07/2017 KISHAN PLATT MD, Ot D68.51 ACTIVATED PROTEIN C RESISTANCE 06/07/2017 KISHAN PLATT MD, Ot E11.622 TYPE 2 DIABETES MELLITUS WITH OTHER SKIN 06/07/2017 KISHAN PLATT MD, Ot 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 06/07/2017 KISHAN PLATT MD, Ot I87.2 VENOUS INSUFFICIENCY (CHRONIC) (PERIPHER 06/07/2017 KISHAN PLATT MD, Ot 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, 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 06/07/2017 KISHAN PLATT MD, Ot L97.222 NON-PRESSURE CHRONIC ULCER OF LEFT CALF 06/07/2017 KISHAN PLATT MD, Ot E11.622 TYPE 2 DIABETES MELLITUS WITH OTHER SKIN 06/07/2017 KISHAN PLATT MD, Ot 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 06/07/2017 KISHAN PLATT MD Ot I87.2 VENOUS INSUFFICIENCY (CHRONIC) (PERIPHER 06/07/2017 KISHAN PLATT MD Ot L97.222 NON-PRESSURE CHRONIC ULCER OF LEFT CALF 06/07/2017 KISHAN PLATT MD, Ot D68.51 ACTIVATED PROTEIN C RESISTANCE 06/07/2017 KISHAN PLATT MD, Ot E11.622 TYPE 2 DIABETES MELLITUS WITH OTHER SKIN 06/07/2017 KISHAN PLATT MD, Ot 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 06/07/2017 KISHAN PLATT MD Ot I87.2 VENOUS INSUFFICIENCY (CHRONIC) (PERIPHER 06/07/2017 KISHAN PLATT MD Ot L97.222 NON-PRESSURE CHRONIC ULCER OF LEFT CALF 06/07/2017 KISHAN PLATT MD, Ot E11.622 TYPE 2 DIABETES MELLITUS WITH OTHER SKIN 06/07/2017 KISHAN PLATT MD Ot I87.2 VENOUS INSUFFICIENCY (CHRONIC) (PERIPHER 06/07/2017 KISHAN PLATT MD, Ot L97.222 NON-PRESSURE CHRONIC ULCER OF LEFT CALF 06/07/2017 KISHAN PLATT MD, Ot D68.51 ACTIVATED PROTEIN C RESISTANCE 06/07/2017 KISHAN PLATT MD, Ot E11.622 TYPE 2 DIABETES MELLITUS WITH OTHER SKIN 06/07/2017 KISHAN PLATT MD, Ot 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 06/07/2017 KISHAN PLATT MD, Ot I87.2 VENOUS INSUFFICIENCY (CHRONIC) (PERIPHER 06/07/2017 KISHAN PLATT MD, Ot L97.222 NON-PRESSURE CHRONIC ULCER OF LEFT CALF 06/07/2017 KISHAN PLATT MD, Ot E11.622 TYPE 2 DIABETES MELLITUS WITH OTHER SKIN 06/07/2017 KISHAN PLATT MD, Ot I87.2 VENOUS INSUFFICIENCY (CHRONIC) (PERIPHER 06/07/2017 KISHAN PLATT MD, Ot L97.222 NON-PRESSURE CHRONIC ULCER OF LEFT CALF 06/07/2017 KISHAN PLATT MD, Ot D68.51 ACTIVATED PROTEIN C RESISTANCE 06/07/2017 KISHAN PLATT MD, Ot E11.622 TYPE 2 DIABETES MELLITUS WITH OTHER SKIN 06/07/2017 KISHAN PLATT MD, Ot 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 06/07/2017 KISHAN PLATT MD Ot I87.2 VENOUS INSUFFICIENCY (CHRONIC) (PERIPHER 06/07/2017 KISHAN PLATT MD, Ot L97.222 NON-PRESSURE CHRONIC ULCER OF LEFT CALF 06/07/2017 KISHAN PLATT MD, Ot E11.622 TYPE 2 DIABETES MELLITUS WITH OTHER SKIN 06/07/2017 KISHAN PLATT MD Ot I87.2 VENOUS INSUFFICIENCY (CHRONIC) (PERIPHER 06/07/2017 KISHAN PLATT MD, Ot L97.222 NON-PRESSURE CHRONIC ULCER OF LEFT CALF 06/07/2017 KISHAN PLATT MD, Ot D68.51 ACTIVATED PROTEIN C RESISTANCE 06/07/2017 KISHAN PLATT MD, Ot E11.622 TYPE 2 DIABETES MELLITUS WITH OTHER SKIN 06/07/2017 KISHAN PLATT MD, Ot 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 06/07/2017 KISHAN PLATT MD Ot I87.2 VENOUS INSUFFICIENCY (CHRONIC) (PERIPHER 06/07/2017 KISHAN PLATT MD, Ot L97.222 NON-PRESSURE CHRONIC ULCER OF LEFT CALF 06/07/2017 KISHAN PLATT MD, Ot E11.622 TYPE 2 DIABETES MELLITUS WITH OTHER SKIN 06/07/2017 KISHAN PLATT MD, Ot I87.2 VENOUS INSUFFICIENCY (CHRONIC) (PERIPHER 06/07/2017 KISHAN PLATT MD Ot L97.222 NON-PRESSURE CHRONIC ULCER OF LEFT CALF 06/07/2017 KISHAN PLATT MD, Ot D68.51 ACTIVATED PROTEIN C RESISTANCE 06/07/2017 KISHAN PLATT MD, Ot E11.622 TYPE 2 DIABETES MELLITUS WITH OTHER SKIN 06/07/2017 KISHAN PLATT MD, Ot 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 06/07/2017 KISHAN PLATT MD, Ot I87.2 VENOUS INSUFFICIENCY (CHRONIC) (PERIPHER 06/07/2017 KISHAN PLATT MD, Ot L97.222 NON-PRESSURE CHRONIC ULCER OF LEFT CALF 06/07/2017 KISHAN PLATT MD, Ot D68.51 ACTIVATED PROTEIN C RESISTANCE 06/07/2017 KISHAN PLATT MD Ot E11.622 TYPE 2 DIABETES MELLITUS WITH OTHER SKIN 06/07/2017 KISHAN PLATT MD, Ot 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 06/07/2017 KISHAN PLATT MD Ot I87.2 VENOUS INSUFFICIENCY (CHRONIC) (PERIPHER 06/07/2017 KISHAN PLATT MD Ot L97.222 NON-PRESSURE CHRONIC ULCER OF LEFT CALF 06/07/2017 KISHAN PLATT MD, Ot D68.51 ACTIVATED PROTEIN C RESISTANCE 06/07/2017 KISHAN PLATT MD, Ot E11.622 TYPE 2 DIABETES MELLITUS WITH OTHER SKIN 06/07/2017 KISHAN PLATT MD Ot 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 06/07/2017 KISHAN PLATT MD Ot I87.2 VENOUS INSUFFICIENCY (CHRONIC) (PERIPHER 06/07/2017 KISHAN PLATT MD Ot L97.222 NON-PRESSURE CHRONIC ULCER OF LEFT CALF 06/07/2017 KISHAN PLATT MD, Ot D68.51 ACTIVATED PROTEIN C RESISTANCE 06/07/2017 KISHAN PLATT MD, Ot E11.622 TYPE 2 DIABETES MELLITUS WITH OTHER SKIN 06/07/2017 KISHAN PLATT MD Ot 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 06/07/2017 KISHAN PLATT MD Ot I87.2 VENOUS INSUFFICIENCY (CHRONIC) (PERIPHER 06/07/2017 KISHAN PLATT MD Ot L97.222 NON-PRESSURE CHRONIC ULCER OF LEFT CALF 06/07/2017 KISHAN PLATT MD, Ot D68.51 ACTIVATED PROTEIN C RESISTANCE 06/07/2017 KISHAN PLATT MD, Ot E11.622 TYPE 2 DIABETES MELLITUS WITH OTHER SKIN 06/07/2017 KISHAN PLATT MD Ot 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 06/07/2017 KISHAN PLATT MD, Ot I87.332 CHRONIC VENOUS HTN W ULCER AND INFLAMMAT 06/07/2017 KISHAN PLATT MD Ot L97.222 NON-PRESSURE CHRONIC ULCER OF LEFT CALF 06/07/2017 KISHAN PLATT MD, Ot D68.51 ACTIVATED PROTEIN C RESISTANCE 06/07/2017 KISHAN PLATT MD, Ot E11.622 TYPE 2 DIABETES MELLITUS WITH OTHER SKIN 06/07/2017 KISHAN PLATT MD, Ot 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 06/07/2017 KISHAN PLATT MD Ot I87.332 CHRONIC VENOUS HTN W ULCER AND INFLAMMAT 06/07/2017 KISHAN PLATT MD Ot L97.222 NON-PRESSURE CHRONIC ULCER OF LEFT CALF 06/07/2017 KISHAN PLATT MD, Ot D68.51 ACTIVATED PROTEIN C RESISTANCE 06/07/2017 KISHAN PLATT MD, Ot E11.622 TYPE 2 DIABETES MELLITUS WITH OTHER SKIN 06/07/2017 KISHAN PLATT MD Ot I87.332 CHRONIC VENOUS HTN W ULCER AND INFLAMMAT 06/07/2017 KISHAN PLATT MD Ot L97.222 NON-PRESSURE CHRONIC ULCER OF LEFT CALF 06/07/2017 KISHAN PLATT MD Ot D68.51 ACTIVATED PROTEIN C RESISTANCE 06/07/2017 KISHAN PLATT MD Ot E11.622 TYPE 2 DIABETES MELLITUS WITH OTHER SKIN 06/07/2017 KISHAN PLATT MD Ot I87.332 CHRONIC VENOUS HTN W ULCER AND INFLAMMAT 06/07/2017 KISHAN PLATT MD Ot L97.222 NON-PRESSURE CHRONIC ULCER OF LEFT CALF 06/07/2017 KISHAN PLATT MD, Ot D68.51 ACTIVATED PROTEIN C RESISTANCE 06/07/2017 KISHAN PALTT MD Ot E11.622 TYPE 2 DIABETES MELLITUS WITH OTHER SKIN 06/07/2017 KISHAN PLATT MD Ot 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 06/07/2017 KISHAN PLATT MD Ot I87.332 CHRONIC VENOUS HTN W ULCER AND INFLAMMAT 06/07/2017 KISHAN PLATT MD Ot L97.222 NON-PRESSURE CHRONIC ULCER OF LEFT CALF 06/07/2017 KISHAN PLATT MD, Ot D68.51 ACTIVATED PROTEIN C RESISTANCE 06/07/2017 KISHAN PLATT MD Ot E11.622 TYPE 2 DIABETES MELLITUS WITH OTHER SKIN 06/07/2017 KISHAN PLATT MD Ot I87.332 CHRONIC VENOUS HTN W ULCER AND INFLAMMAT 06/07/2017 KISHAN PLATT MD Ot L97.222 NON-PRESSURE CHRONIC ULCER OF LEFT CALF 06/07/2017 KISHAN PLATT MD, Ot D68.51 ACTIVATED PROTEIN C RESISTANCE 06/07/2017 KISHAN PLATT MD, Ot E11.622 TYPE 2 DIABETES MELLITUS WITH OTHER SKIN 06/07/2017 KISHAN PLATT MD, Ot 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 06/07/2017 KISHAN PLATT MD Ot I87.332 CHRONIC VENOUS HTN W ULCER AND INFLAMMAT 06/07/2017 KISHAN PLATT MD Ot L97.222 NON-PRESSURE CHRONIC ULCER OF LEFT CALF 06/07/2017 KISHAN PLATT MD Ot D68.51 ACTIVATED PROTEIN C RESISTANCE 06/07/2017 KISHAN PLATT MD Ot E11.622 TYPE 2 DIABETES MELLITUS WITH OTHER SKIN 06/07/2017 KISHAN PLATT MD Ot 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 06/07/2017 KISHAN PLATT MD Ot I87.332 CHRONIC VENOUS HTN W ULCER AND INFLAMMAT 06/07/2017 KISHAN PLATT MD Ot L97.222 NON-PRESSURE CHRONIC ULCER OF LEFT CALF 06/07/2017 KISHAN PLATT MD, Ot D68.51 ACTIVATED PROTEIN C RESISTANCE 06/07/2017 KISHAN PLATT MD Ot E11.622 TYPE 2 DIABETES MELLITUS WITH OTHER SKIN 06/07/2017 KISHAN PLATT MD Ot I87.332 CHRONIC VENOUS HTN W ULCER AND INFLAMMAT 06/07/2017 KISHAN PLATT MD Ot L97.222 NON-PRESSURE CHRONIC ULCER OF LEFT CALF 06/07/2017 KISHAN PLATT MD Ot D68.51 ACTIVATED PROTEIN C RESISTANCE 06/07/2017 KISHAN PLATT MD Ot E11.622 TYPE 2 DIABETES MELLITUS WITH OTHER SKIN 06/07/2017 KISHAN PLATT MD Ot 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 06/07/2017 KISHAN PLATT MD Ot I87.332 CHRONIC VENOUS HTN W ULCER AND INFLAMMAT 06/07/2017 KISHAN PLATT MD Ot L97.222 NON-PRESSURE CHRONIC ULCER OF LEFT CALF 06/07/2017 KISHAN PLATT MD Ot D68.51 ACTIVATED PROTEIN C RESISTANCE 06/07/2017 KISHAN PLATT MD Ot E11.622 TYPE 2 DIABETES MELLITUS WITH OTHER SKIN 06/07/2017 KISHAN PLATT MD, Ot 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 06/07/2017 KISHAN PLATT MD Ot I87.332 CHRONIC VENOUS HTN W ULCER AND INFLAMMAT 06/07/2017 KISHAN PLATT MD Ot L97.222 NON-PRESSURE CHRONIC ULCER OF LEFT CALF 06/07/2017 KISHAN PLATT MD Ot D68.51 ACTIVATED PROTEIN C RESISTANCE 06/07/2017 KISHAN PLATT MD Ot E11.622 TYPE 2 DIABETES MELLITUS WITH OTHER SKIN 06/07/2017 KISHAN PLATT MD Ot I87.332 CHRONIC VENOUS HTN W ULCER AND INFLAMMAT 06/07/2017 KISHAN PLATT MD Ot L97.222 NON-PRESSURE CHRONIC ULCER OF LEFT CALF 06/07/2017 KISHAN PLATT MD, Ot D68.51 ACTIVATED PROTEIN C RESISTANCE 06/07/2017 KISHAN PLATT MD Ot E11.622 TYPE 2 DIABETES MELLITUS WITH OTHER SKIN 06/07/2017 KISHAN PLATT MD Ot I87.332 CHRONIC VENOUS HTN W ULCER AND INFLAMMAT 06/07/2017 KISHAN PLATT MD Ot L97.222 NON-PRESSURE CHRONIC ULCER OF LEFT CALF 06/07/2017 KISHAN PLATT MD Ot D68.51 ACTIVATED PROTEIN C RESISTANCE 06/07/2017 KISHAN PLATT MD Ot E11.622 TYPE 2 DIABETES MELLITUS WITH OTHER SKIN 06/07/2017 KISHAN PLATT MD, Ot 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 06/07/2017 KISHAN PLATT MD Ot I87.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 CHRONIC VENOUS HTN W ULCER AND INFLAMMAT 06/07/2017 KISHAN PLATT MD Ot L97.222 NON-PRESSURE CHRONIC ULCER OF LEFT CALF 06/07/2017 KISHAN PLATT MD, Ot D68.51 ACTIVATED PROTEIN C RESISTANCE 06/07/2017 KISHAN PLATT MD Ot E11.622 TYPE 2 DIABETES MELLITUS WITH OTHER SKIN 06/07/2017 KISHAN PLATT MD Ot I87.332 CHRONIC VENOUS HTN W ULCER AND INFLAMMAT 06/07/2017 KISHAN PLATT MD Ot L03.116 CELLULITIS OF LEFT LOWER LIMB 06/07/2017 KISHAN PLATT MD Ot L97.222 NON-PRESSURE CHRONIC ULCER OF LEFT CALF 06/13/2017 KISHAN PLATT MD, Ot D68.51 ACTIVATED PROTEIN C RESISTANCE 06/13/2017 KISHAN PLATT MD, Ot E11.622 TYPE 2 DIABETES MELLITUS WITH OTHER SKIN 06/13/2017 KISHAN PLATT MD, Ot I87.332 CHRONIC VENOUS HTN W ULCER AND INFLAMMAT 06/13/2017 KISHAN PLATT MD Ot L03.116 CELLULITIS OF LEFT LOWER LIMB 06/13/2017 KISHAN PLATT MD, Ot L97.222 NON-PRESSURE CHRONIC ULCER OF LEFT CALF 06/13/2017 KISHAN PLATT MD, Ot D68.51 ACTIVATED PROTEIN C RESISTANCE 06/13/2017 KISHAN PLATT MD Ot E11.622 TYPE 2 DIABETES MELLITUS WITH OTHER SKIN 06/13/2017 KISHAN PLATT MD Ot I87.332 CHRONIC VENOUS HTN W ULCER AND INFLAMMAT 06/13/2017 KISHAN PLATT MD Ot L97.222 NON-PRESSURE CHRONIC ULCER OF LEFT CALF 06/20/2017 KISHAN PLATT MD, Ot D68.51 ACTIVATED PROTEIN C RESISTANCE 06/20/2017 KISHAN PLATT MD Ot E11.622 TYPE 2 DIABETES MELLITUS WITH OTHER SKIN 06/20/2017 KISHAN PLATT MD Ot I87.332 CHRONIC VENOUS HTN W ULCER AND INFLAMMAT 06/20/2017 KISHAN PLATT MD Ot L97.222 NON-PRESSURE CHRONIC ULCER OF LEFT CALF 06/21/2017 KISHAN PLATT MD, Ot D68.51 ACTIVATED PROTEIN C RESISTANCE 06/21/2017 KISHAN PLATT MD Ot E11.622 TYPE 2 DIABETES MELLITUS WITH OTHER SKIN 06/21/2017 KISHAN PLATT MD Ot 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 06/21/2017 KISHAN PLATT MD Ot I87.332 CHRONIC VENOUS HTN W ULCER AND INFLAMMAT 06/21/2017 KISHAN PLATT MD Ot L97.222 NON-PRESSURE CHRONIC ULCER OF LEFT CALF 06/26/2017 KISHAN PLATT MD, Ot D68.51 ACTIVATED PROTEIN C RESISTANCE 06/26/2017 KISHAN PLATT MD, Ot E11.622 TYPE 2 DIABETES MELLITUS WITH OTHER SKIN 06/26/2017 KISHAN PLATT MD Ot I87.332 CHRONIC VENOUS HTN W ULCER AND INFLAMMAT 06/26/2017 KISHAN PLATT MD Ot L97.222 NON-PRESSURE CHRONIC ULCER OF LEFT CALF 06/27/2017 KISHAN PLATT MD, Ot D68.51 ACTIVATED PROTEIN C RESISTANCE 06/27/2017 KISHAN PLATT MD, Ot E11.622 TYPE 2 DIABETES MELLITUS WITH OTHER SKIN 06/27/2017 KISHAN PLATT MD, Ot I87.332 CHRONIC VENOUS HTN W ULCER AND INFLAMMAT 06/27/2017 KISHAN PLATT MD Ot L97.222 NON-PRESSURE CHRONIC ULCER OF LEFT CALF 07/03/2017 KISHAN PLATT MD, Ot D68.51 ACTIVATED PROTEIN C RESISTANCE 07/03/2017 KISHAN PLATT MD Ot E11.622 TYPE 2 DIABETES MELLITUS WITH OTHER SKIN 07/03/2017 KISHAN PLATT MD Ot 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 07/03/2017 KISHAN PLATT MD Ot I87.332 CHRONIC VENOUS HTN W ULCER AND INFLAMMAT 07/03/2017 KISHAN PLATT MD Ot L97.222 NON-PRESSURE CHRONIC ULCER OF LEFT CALF 07/08/2017 KISHAN PLATT MD Ot D68.51 ACTIVATED PROTEIN C RESISTANCE 07/08/2017 KISHAN PLATT MD Ot E11.622 TYPE 2 DIABETES MELLITUS WITH OTHER SKIN 07/08/2017 KISHAN PLATT MD Ot 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 07/08/2017 KISHAN PLATT MD Ot I87.332 CHRONIC VENOUS HTN W ULCER AND INFLAMMAT 07/08/2017 KISHAN PLATT MD Ot L97.222 NON-PRESSURE CHRONIC ULCER OF LEFT CALF 07/15/2017 KISHAN PLATT MD Ot D68.51 ACTIVATED PROTEIN C RESISTANCE 07/15/2017 KISHAN PLATT MD Ot E11.622 TYPE 2 DIABETES MELLITUS WITH OTHER SKIN 07/15/2017 KISHAN PLATT MD Ot 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 07/15/2017 KISHAN PLATT MD Ot I87.332 CHRONIC VENOUS HTN W ULCER AND INFLAMMAT 07/15/2017 KISHAN PLATT MD, Ot L97.222 NON-PRESSURE CHRONIC ULCER OF LEFT CALF 07/18/2017 KISHAN PLATT MD, Ot D68.51 ACTIVATED PROTEIN C RESISTANCE 07/18/2017 KISHAN PLATT MD Ot E11.622 TYPE 2 DIABETES MELLITUS WITH OTHER SKIN 07/18/2017 KISHAN PLATT MD Ot 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 07/18/2017 KISHAN PLATT MD Ot I87.332 CHRONIC VENOUS HTN W ULCER AND INFLAMMAT 07/18/2017 KISHAN PLATT MD Ot L97.222 NON-PRESSURE CHRONIC ULCER OF LEFT CALF 07/18/2017 KISHAN PLATT MD, Ot D68.51 ACTIVATED PROTEIN C RESISTANCE 07/18/2017 KISHAN PLATT MD, Ot E11.622 TYPE 2 DIABETES MELLITUS WITH OTHER SKIN 07/18/2017 KISHAN PLATT MD Ot I87.332 CHRONIC VENOUS HTN W ULCER AND INFLAMMAT 07/18/2017 KISHAN PLATT MD Ot L97.222 NON-PRESSURE CHRONIC ULCER OF LEFT CALF 07/18/2017 KISHAN PLATT MD, Ot D68.51 ACTIVATED PROTEIN C RESISTANCE 07/18/2017 KISHAN PLATT MD Ot E11.622 TYPE 2 DIABETES MELLITUS WITH OTHER SKIN 07/18/2017 KISHAN PLATT MD Ot I87.332 CHRONIC VENOUS HTN W ULCER AND INFLAMMAT 07/18/2017 KISHAN PLATT MD Ot L97.222 NON-PRESSURE CHRONIC ULCER OF LEFT CALF 07/26/2017 KISHAN PLATT MD, Ot D68.51 ACTIVATED PROTEIN C RESISTANCE 07/26/2017 KISHAN PLATT MD Ot E11.622 TYPE 2 DIABETES MELLITUS WITH OTHER SKIN 07/26/2017 KISHAN PLATT MD Ot 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 07/26/2017 KISHAN PLATT MD Ot I87.332 CHRONIC VENOUS HTN W ULCER AND INFLAMMAT 07/26/2017 KISHAN PLATT MD Ot L97.222 NON-PRESSURE CHRONIC ULCER OF LEFT CALF 07/31/2017 KISHAN PLATT MD Ot D68.51 ACTIVATED PROTEIN C RESISTANCE 07/31/2017 KISHAN PLATT MD Ot E11.622 TYPE 2 DIABETES MELLITUS WITH OTHER SKIN 07/31/2017 KISHAN PLATT MD, Ot I87.332 CHRONIC VENOUS HTN W ULCER AND INFLAMMAT 07/31/2017 KISHAN PLATT MD, Ot L97.222 NON-PRESSURE CHRONIC ULCER OF LEFT CALF 08/07/2017 KISHAN PLATT MD, Ot D68.51 ACTIVATED PROTEIN C RESISTANCE 08/07/2017 KISHAN PLATT MD, Ot E11.622 TYPE 2 DIABETES MELLITUS WITH OTHER SKIN 08/07/2017 KISHAN PLATT MD, Ot I87.332 CHRONIC VENOUS HTN W ULCER AND INFLAMMAT 08/07/2017 KISHAN PLATT MD, Ot L97.222 NON-PRESSURE CHRONIC ULCER OF LEFT CALF Procedures There is no data. Results Test Result Range Comprehensive metabolic panel - 12/14/15 13:14 Serum or plasma sodium measurement (moles/volume) 142 mmol/L 135-145 Serum or plasma potassium measurement (moles/volume) 4.2 mmol/L 3.6-5.0 Serum or plasma chloride measurement (moles/volume) 109 mmol/L 98-107 Carbon dioxide 25 mmol/L 21-32 Serum or plasma anion gap determination (moles/volume) 8 mmol/L 5-14 Serum or plasma urea nitrogen measurement (mass/volume) 15 mg/dL 7-18 Serum or plasma creatinine measurement (mass/volume) 0.84 mg/dL 0.60-1.30 Serum or plasma urea nitrogen/creatinine mass [...] 13:14 Blood leukocytes automated count (number/volume) 14.3 10*3/uL 4.3-11.0 Blood erythrocytes automated count (number/volume) 4.52 10*6/uL 4.35-5.85 Venous blood hemoglobin measurement (mass/volume) 13.2 [...] Automated blood platelet mean volume measurement 11.0 [foz_us] 7.4-10.4 Automated blood neutrophils/100 leukocytes 88 % [...] culture NOANA NRG Gram stain microscopy - 08/10/16 14:05 GRAM STAIN RESULT FEW WBC'S, NO BACTERIA OBSERVED NRG Bacteria identification in wound by culture - 12/21/15 14:05 Bacteria identification in wound by culture [id number] NRG FREE TEXT EXTERNAL SENSITIVITY REPORTED 12/21 16:25 NRG QUANTITY OF GROWTH Moderate Growth NRG MRSA AGAR Screening test for MRSA is NEGATIVE (Final to follow) NR Bacterial susceptibility panel - 12/21/15 14:05 Oxacillin susceptibility test by minimum inhibitory concentration < = NRG Gentamicin susceptibility test by minimum inhibitory concentration < = NRG Clindamycin susceptibility test by minimum inhibitory [...] 13:20 Bacteria identification in wound by culture [id number] NRG FREE TEXT EXTERNAL NO FURTHER SENSITIVITIES, UNLESS NRG QUANTITY OF GROWTH Scant Growth NRG FREE TEXT ENTRY [address] ALEXANDRE Bacterial susceptibility panel - 01/25/16 13:20 Oxacillin susceptibility test by minimum inhibitory concentration 0.5 NRG Gentamicin susceptibility test by minimum inhibitory concentration < = NRG Clindamycin susceptibility test by minimum inhibitory concentration >= NRG Erythromycin susceptibility test by minimum inhibitory concentration >= NRG Trimethoprim/sulfamethoxazole susceptibility test by minimum inhibitoryconcentration <= NRG Vancomycin susceptibility test by minimum inhibitory concentration < = NRG Levofloxacin susceptibility test by minimum inhibitory concentration <= NRG Rifampin susceptibility test by minimum inhibitory concentration <= NRG Tetracycline susceptibility test by minimum inhibitory concentration >= NRG Comp. Metabolic Panel (14) - 02/01/16 10:19 Glucose, Serum 95 mg/dL 65-99 BUN 12 mg/dL 6-20 Creatinine, Serum 1.14 mg/dL 0.76-1.27 eGFR If NonAfricn Am 83 mL/min/1.73 >59 eGFR If Africn Am 96 mL/min/1.73 >59 BUN/Creatinine Ratio 11 8-19 Sodium, Serum 144 mmol/L 134-144 Potassium, Serum 4.0 mmol/L 3.5-5.2 Chloride, Serum 99 mmol/L 97-108 Carbon Dioxide, Total 25 mmol/L 18-29 Calcium, Serum 9.2 mg/dL 8.7-10.2 Protein, Total, Serum 6.9 g/dL 6.0-8.5 Albumin, Serum 3.7 g/dL 3.5-5.5 Globulin, Total 3.2 g/dL 1.5-4.5 A/G Ratio 1.2 1.1-2.5 Bilirubin, Total 0.4 mg/dL 0.0-1.2 Alkaline Phosphatase, S 58 IU/L 39-117 AST (SGOT) 19 IU/L 0-40 ALT (SGPT) 34 IU/L 0-44 Lipid Panel - 02/01/16 10:19 Cholesterol, Total 261 mg/dL 100-199 Triglycerides 141 mg/dL 0-149 HDL Cholesterol 54 mg/dL >39 VLDL Cholesterol Isai 28 mg/dL 5-40 LDL Cholesterol Calc 179 mg/dL 0-99 CBC With Differential/Platelet - 02/21/16 12:45 WBC 18.6 x10E3/uL 3.4-10.8 RBC 4.74 x10E6/uL 4.14-5.80 Hemoglobin 14.9 g/dL 12.6-17.7 Hematocrit 42.3 % 37.5-51.0 MCV 89 fL 79-97 MCH 31.4 pg 26.6-33.0 MCHC 35.2 g/dL 31.5-35.7 RDW 15.3 % 12.3-15.4 Platelets 259 x10E3/uL 150-379 Neutrophils 85 % Lymphs 8 % Monocytes 4 % Eos 2 % Basos 1 % Neutrophils (Absolute) 15.8 x10E3/uL 1.4-7.0 Lymphs (Absolute) 1.5 x10E3/uL 0.7-3.1 Monocytes(Absolute) 0.7 x10E3/uL 0.1-0.9 Eos (Absolute) 0.4 x10E3/uL 0.0-0.4 Baso (Absolute) 0.2 x10E3/uL 0.0-0.2 NRBC 0 % 0 - 0 Hematology Comments: Note: TSH - 02/21/16 12:45 TSH 2.730 uIU/mL 0.450-4.500 Magnesium, Serum - 02/21/16 12:45 Magnesium, Serum 2.0 mg/dL 1.6-2.3 Bacteria identification in isolate by anaerobe culture [...] 08:45 Blood leukocytes automated count (number/volume) 16.0 10*3/uL 4.3-11.0 Blood erythrocytes automated count (number/volume) 4.70 10*6/uL 4.35-5.85 Venous blood hemoglobin measurement (mass/volume) 14.3 [...] Automated blood platelet mean volume measurement 10.4 [foz_us] 7.4-10.4 Automated blood neutrophils/100 leukocytes 72 % [...] NRG Blood erythrocyte morphology finding identification NORMAL NR Comprehensive metabolic panel - 04/11/16 08:45 Serum or plasma sodium measurement (moles/volume) 141 mmol/L 135-145 Serum or plasma potassium measurement (moles/volume) 4.1 mmol/L 3.6-5.0 Serum or plasma chloride measurement (moles/volume) 108 mmol/L 98-107 Carbon dioxide 22 mmol/L 21-32 Serum or plasma anion gap determination (moles/volume) 11 mmol/L 5-14 Serum or plasma urea nitrogen measurement (mass/volume) 8 mg/dL 7-18 Serum or plasma creatinine measurement (mass/volume) 0.85 mg/dL 0.60-1.30 Serum or plasma urea nitrogen/creatinine mass [...] Bacteria identification in isolate by anaerobe culture [id number] NRG Gram stain microscopy - 06/13/16 09:22 GRAM STAIN RESULT RARE GRAM POSITIVE COCCI NRG Bacteria identification in wound by culture - 06/13/16 09:22 Bacteria identification in wound by culture [id number] NRG FREE TEXT EXTERNAL (NOT JK) NRG QUANTITY OF GROWTH Scant Growth NRG MRSA AGAR Screening test for MRSA is NEGATIVE (Final to follow) NRG FREE TEXT ENTRY 2 SENSITIVITY REPORTED AT 0742, 06-15-16 NR Bacterial susceptibility panel - 06/13/16 09:22 Oxacillin susceptibility test by minimum inhibitory concentration 0.5 NRG Gentamicin susceptibility test by minimum inhibitory concentration < = NRG Clindamycin susceptibility test by minimum inhibitory [...] 10:26 Bacteria identification in wound by culture [id number] NRG FREE TEXT EXTERNAL NOT CORYNEBACTERIUM JK(JEIKEIUM) NRG QUANTITY OF GROWTH Scant Growth NRG GALLO Other Source - 07/19/16 15:00 GALLO Other Source No Fungal elements seen 0.00-0.00 Capillary blood glucose measurement by glucometer (mass/volume) - 08/05/16 07: 33 Capillary blood glucose measurement by glucometer (mass/volume) 100 mg/dL 70-110 Complete blood count (CBC) with automated white blood cell (WBC) differential - 08/05/16 07:35 Blood leukocytes automated count (number/volume) 11.6 10*3/uL 4.3-11.0 Blood erythrocytes automated count (number/volume) 4.48 10*6/uL 4.35-5.85 Venous blood hemoglobin measurement (mass/volume) 13.4 [...] Automated blood platelet mean volume measurement 11.0 [foz_us] 7.4-10.4 Automated blood neutrophils/100 leukocytes 67 % [...] Serum or plasma sodium measurement (moles/volume) 141 mmol/L 135-145 Serum or plasma potassium measurement (moles/volume) 4.2 mmol/L 3.6-5.0 Serum or plasma chloride measurement (moles/volume) 109 mmol/L 98-107 Carbon dioxide 23 mmol/L 21-32 Serum or plasma anion gap determination (moles/volume) 9 mmol/L 5-14 Serum or plasma urea nitrogen measurement (mass/volume) 10 mg/dL 7-18 Serum or plasma creatinine measurement (mass/volume) 0.85 mg/dL 0.60-1.30 Serum or plasma urea nitrogen/creatinine mass [...] or plasma troponin i.cardiac measurement (mass/volume) < ng/ mL <0.30 Lipase - 08/05/16 07:35 Lipase 38 [...] Urine pH measurement by test strip 5 5-9 Specific gravity of urine by test strip 1.025 1.016- 1.022 Urine protein assay by test strip, semi-quantitative [...] urine sediment by light microscopy MODERATE NRG Complete blood count (CBC) with automated white blood cell (WBC) differential - 08/22/16 12:44 Blood leukocytes automated count (number/volume) 9.1 10*3/uL 4.3-11.0 Blood erythrocytes automated count (number/volume) 4.22 10*6/uL 4.35-5.85 Venous blood hemoglobin measurement (mass/volume) 12.5 g/dL 13.3-17.7 Blood hematocrit (volume fraction) 39 % 40-54 Automated erythrocyte mean corpuscular volume 92 [foz_us] 80-99 Automated erythrocyte mean corpuscular hemoglobin (mass per erythrocyte) 30 pg 25-34 Automated erythrocyte mean corpuscular hemoglobin concentration measurement ( mass/volume) 32 g/dL 32-36 Automated erythrocyte distribution width ratio 14.3 % 10.0-14.5 Automated blood platelet count (count/volume) 250 10*3/uL 130-400 Automated blood platelet mean volume measurement 11.2 [foz_us] 7.4-10.4 Automated blood neutrophils/100 leukocytes 62 % 42-75 Automated blood lymphocytes/100 leukocytes 18 % 12-44 Blood monocytes/100 leukocytes 10 % 0-12 Automated blood eosinophils/100 leukocytes 10 % 0-10 Automated blood basophils/100 leukocytes 0 % 0-10 Blood neutrophils automated count (number/volume) 5.7 10*3 1.8-7.8 Blood lymphocytes automated count (number/volume) 1.6 10*3 1.0-4.0 Blood monocytes automated count (number/volume) 0.9 10*3 0.0-1.0 Automated eosinophil count 0.9 10*3/uL 0.0-0.3 Automated blood basophil count (count/volume) 0.0 10*3/uL 0.0-0.1 Comprehensive metabolic panel - 08/22/16 12:44 Serum or plasma sodium measurement (moles/volume) 144 mmol/L 135-145 Serum or plasma potassium measurement (moles/volume) 3.6 mmol/L 3.6-5.0 Serum or plasma chloride measurement (moles/volume) 112 mmol/L 98-107 Carbon dioxide 22 mmol/L 21-32 Serum or plasma anion gap determination (moles/volume) 10 mmol/L 5-14 Serum or plasma urea nitrogen measurement (mass/volume) 13 mg/dL 7-18 Serum or plasma creatinine measurement (mass/volume) 0.84 mg/dL 0.60-1.30 Serum or plasma urea nitrogen/creatinine mass ratio 15 NRG Serum or plasma creatinine measurement with calculation of estimated glomerular filtration rate > NRG Serum or plasma glucose measurement (mass/volume) 87 mg/dL 70-105 Serum or plasma calcium measurement (mass/volume) 8.7 mg/dL 8.5-10.1 Serum or plasma total bilirubin measurement (mass/volume) 0.7 mg/dL 0.1-1.0 Serum or plasma alkaline phosphatase measurement (enzymatic activity/volume) 52 U/L 40-136 Serum or plasma aspartate aminotransferase measurement (enzymatic activity/ volume) 22 U/L 5-34 Serum or plasma alanine aminotransferase measurement (enzymatic activity/volume ) 20 U/L 0-55 Serum or plasma protein measurement (mass/volume) 6.5 g/dL 6.4-8.2 Serum or plasma albumin measurement (mass/volume) 3.4 g/dL 3.2-4.5 Hemoglobin A1c - 08/22/16 12:44 Hemoglobin A1c 6.2 % 4.5-6.2 Bacteria identification in isolate by anaerobe culture - 11/15/16 13:00 Bacteria identification in isolate by anaerobe culture NOANA NRG Gram stain microscopy - 11/15/16 13:00 GRAM STAIN RESULT NO BACTERIA NRG Bacteria identification in wound by culture - 11/15/16 13:00 Bacteria identification in wound by culture [id number] NR FREE TEXT EXTERNAL SENSITTIVITY REPORTED AT 1508, 7 NRG QUANTITY OF GROWTH Moderate Growth NRG MRSA AGAR Screening test for MRSA is NEGATIVE (Final to follow) [facility] Bacterial susceptibility panel - 11/15/16 13:00 Oxacillin susceptibility test by minimum inhibitory concentration 0.5 NRG Gentamicin susceptibility test by minimum inhibitory concentration < = NRG Clindamycin susceptibility test by minimum inhibitory concentration <= NRG Erythromycin susceptibility test by minimum inhibitory concentration <= NRG Trimethoprim/sulfamethoxazole susceptibility test by minimum inhibitoryconcentration <= NRG Vancomycin susceptibility test by minimum inhibitory concentration 1 NRG Levofloxacin susceptibility test by minimum inhibitory concentration 4 NRG Rifampin susceptibility test by minimum inhibitory concentration <= NRG Tetracycline susceptibility test by minimum inhibitory concentration <= NRG Ciprofloxacin susceptibility test by minimum inhibitory concentration R NRG Complete blood count (CBC) with automated white blood cell (WBC) differential - 11/22/16 11:32 Blood leukocytes automated count (number/volume) 8.4 10*3/uL 4.3-11.0 Blood erythrocytes automated count (number/volume) 4.82 10*6/uL 4.35-5.85 Venous blood hemoglobin measurement (mass/volume) 13.5 g/dL 13.3-17.7 Blood hematocrit (volume fraction) 43 % 40-54 Automated erythrocyte mean corpuscular volume 89 [foz_us] 80-99 Automated erythrocyte mean corpuscular hemoglobin (mass per erythrocyte) 28 pg 25-34 Automated erythrocyte mean corpuscular hemoglobin concentration measurement ( mass/volume) 32 g/dL 32-36 Automated erythrocyte distribution width ratio 13.9 % 10.0-14.5 Automated blood platelet count (count/volume) 266 10*3/uL 130-400 Automated blood platelet mean volume measurement 10.7 [foz_us] 7.4-10.4 Automated blood neutrophils/100 leukocytes 68 % 42-75 Automated blood lymphocytes/100 leukocytes 18 % 12-44 Blood monocytes/100 leukocytes 9 % 0-12 Automated blood eosinophils/100 leukocytes 5 % 0-10 Automated blood basophils/100 leukocytes 0 % 0-10 Blood neutrophils automated count (number/volume) 5.7 10*3 1.8-7.8 Blood lymphocytes automated count (number/volume) 1.5 10*3 1.0-4.0 Blood monocytes automated count (number/volume) 0.7 10*3 0.0-1.0 Automated eosinophil count 0.4 10*3/uL 0.0-0.3 Automated blood basophil count (count/volume) 0.0 10*3/uL 0.0-0.1 Comprehensive metabolic panel - 11/22/16 11:32 Serum or plasma sodium measurement (moles/volume) 142 mmol/L 135-145 Serum or plasma potassium measurement (moles/volume) 3.8 mmol/L 3.6-5.0 Serum or plasma chloride measurement (moles/volume) 110 mmol/L 98-107 Carbon dioxide 22 mmol/L 21-32 Serum or plasma anion gap determination (moles/volume) 10 mmol/L 5-14 Serum or plasma urea nitrogen measurement (mass/volume) 12 mg/dL 7-18 Serum or plasma creatinine measurement (mass/volume) 0.87 mg/dL 0.60-1.30 Serum or plasma urea nitrogen/creatinine mass ratio 14 NRG Serum or plasma creatinine measurement with calculation of estimated glomerular filtration rate > NRG Serum or plasma glucose measurement (mass/volume) 96 mg/dL 70-105 Serum or plasma calcium measurement (mass/volume) 9.6 mg/dL 8.5-10.1 Serum or plasma total bilirubin measurement (mass/volume) 0.6 mg/dL 0.1-1.0 Serum or plasma alkaline phosphatase measurement (enzymatic activity/volume) 60 U/L 40-136 Serum or plasma aspartate aminotransferase measurement (enzymatic activity/ volume) 23 U/L 5-34 Serum or plasma alanine aminotransferase measurement (enzymatic activity/volume ) 26 U/L 0-55 Serum or plasma protein measurement (mass/volume) 7.7 g/dL 6.4-8.2 Serum or plasma albumin measurement (mass/volume) 3.9 g/dL 3.2-4.5 Hemoglobin A1c - 11/22/16 11:32 Hemoglobin A1c 5.0 % 4.5-6.2 Gram stain microscopy - 02/18/17 15:27 GRAM STAIN RESULT FEW WBC'S, NO BACTERIA OBSERVED NRG Bacteria identification in wound by culture - 02/18/17 15:27 Bacteria identification in wound by culture NG NRG Bacteria identification in isolate by anaerobe culture - 02/18/17 15:27 Bacteria identification in isolate by anaerobe culture NG NRG Bacteria identification in isolate by anaerobe culture - 04/08/17 14:49 Bacteria identification in isolate by anaerobe culture NG NRG Gram stain microscopy - 04/08/17 14:49 GRAM STAIN RESULT NO BACTERIA OBSERVED NRG Bacteria identification in wound by culture - 04/08/17 14:49 Bacteria identification in wound by culture NG NRG Bacteria identification in isolate by anaerobe culture - 05/31/17 10:46 Bacteria identification in isolate by anaerobe culture NOANA NRG Gram stain microscopy - 05/31/17 10:46 GRAM STAIN RESULT FEW WBC'S, NO BACTERIA OBSERVED NRG Bacteria identification in wound by culture - 05/31/17 10:46 Bacteria identification in wound by culture [id number] NRG FREE TEXT EXTERNAL SENSITIVITY REPORTED 06/02 12:50 NRG QUANTITY OF GROWTH Moderate Growth NRG MRSA AGAR MRSA isolated (Screening test for MRSA is positive) NR CALL POSITIVES (F1 HELP) CALLED TO NAMITA 06/03 08:30 NRG Bacterial susceptibility panel - 05/31/17 10:46 Oxacillin susceptibility test by minimum inhibitory concentration > = NRG Gentamicin susceptibility test by minimum inhibitory concentration < = NRG Clindamycin susceptibility test by minimum inhibitory concentration >= NRG Erythromycin susceptibility test by minimum inhibitory concentration >= NRG Trimethoprim/sulfamethoxazole susceptibility test by minimum inhibitoryconcentration S NRG Vancomycin susceptibility test by minimum inhibitory concentration < = NRG Levofloxacin susceptibility test by minimum inhibitory concentration 4 NRG Rifampin susceptibility test by minimum inhibitory concentration <= NRG Tetracycline susceptibility test by minimum inhibitory concentration <= NRG Ciprofloxacin susceptibility test by minimum inhibitory concentration R NRG Linezolid susceptibility test by minimum inhibitory concentration 2 [facility] - 07/17/17 08:40 GLUCOSE 158 mg/dL 65-99 UREA NITROGEN (BUN) 12 mg/dL 7-25 CREATININE 0.78 mg/dL 0.60-1.35 eGFR NON-AFR. [place] 116 mL/min/1.73m2 > OR=60 eGFR 135 mL/min/1.73m2 > OR=60 BUN/CREATININE RATIO NOT APPLICABLE (calc) 6-22 SODIUM 140 mmol/L 135-146 POTASSIUM 4.6 mmol/L 3.5-5.3 CHLORIDE 107 mmol/L 98-110 CARBON DIOXIDE 26 mmol/L 20-31 CALCIUM 9.6 mg/dL 8.6-10.3 PROTEIN, TOTAL 7.4 g/dL 6.1-8.1 ALBUMIN 4.1 g/dL 3.6-5.1 GLOBULIN 3.3 g/dL (calc) 1.9-3.7 ALBUMIN/GLOBULIN RATIO 1.2 (calc) 1.0-2.5 BILIRUBIN, TOTAL 0.4 mg/dL 0.2-1.2 ALKALINE PHOSPHATASE 71 U/L 40-115 AST 21 U/L 10-40 ALT 33 U/L 9-46 Encounters ACCT No. Visit Date/Time Discharge Status Pt. Type Provider Facility Loc./Unit Complaint [id number] 07/24/2017 13:44:00 07/24/2017 23:59:59 CLS Outpatient [facility]ATT [id number] 07/17/2017 13:26:00 07/17/2017 23:59:59 CLS Outpatient [facility]ISHAN PLATT [facility] [id number] 07/10/2017 13:15:00 07/10/2017 23:59:59 CLS Outpatient KISHAN PLTAT [facility] [id number] 07/03/2017 13:11:00 07/03/2017 23:59:59 CLS Outpatient [facility]ISHAN PLATT [facility] [id number] 06/26/2017 13:30:00 06/26/2017 23:59:59 CLS Outpatient KISHAN PLATT MD [facility] [id number] 06/19/2017 13:43:00 06/19/2017 23:59:59 CLS Outpatient KISHAN PLATT [facility] [id number] 06/12/2017 14:04:00 06/12/2017 23:59:59 CLS Outpatient KISHAN PLATT [facility] [id number] 06/07/2017 08:22:00 06/07/2017 23:59:59 CLS Out[facility] [facility] [id number] 05/31/2017 10:21:00 05/31/2017 23:59:59 CLS Outpatient KISHAN PLATT MD [facility] [id number] 05/20/2017 14:13:00 05/20/2017 23:59:59 CLS Outpatient KISHAN PLATT MD [facility] [id number] 05/14/2017 14:04:00 05/14/2017 23:59:59 CLS Outpatient KISHAN PLATT MD [facility] [id number] 05/07/2017 14:05:00 05/07/2017 23:59:59 CLS Outpatient KISHAN PLATT MD [facility] [id number] 04/29/2017 14:12:00 04/29/2017 23:59:59 CLS Outpatient KISHAN PLATT MD [facility] [id number] 04/22/2017 14:07:00 04/22/2017 23:59:59 CLS Outpatient KISHAN PLATT MD [facility] [id number] 04/15/2017 12:44:00 04/15/2017 23:59:59 CLS Outpatient KISHAN PLATT MD [facility] [id number] 04/08/2017 14:28:00 04/08/2017 23:59:59 CLS Outpatient KISHAN PLATT MD [facility] [id number] 04/01/2017 14:35:00 04/01/2017 23:59:59 CLS Outpatient KISHAN PLATT MD [facility] [id number] 03/25/2017 14:57:00 03/25/2017 23:59:59 CLS Outpatient KISHAN PLATT MD [facility] [id number] 03/18/2017 14:15:00 03/18/2017 23:59:59 CLS Outpatient KISHAN PLATT MD [facility] [id number] 03/12/2017 14:20:00 03/12/2017 23:59:59 CLS Outpatient KISHAN PLATT MD [facility] [id number] 03/04/2017 15:30:00 03/04/2017 23:59:59 CLS Outpatient KISHAN PLATT MD [facility] [id number] 02/25/2017 15:25:00 02/25/2017 23:59:59 CLS Outpatient KISHAN PLATT MD [facility] [id number] 02/18/2017 14:23:00 02/18/2017 23:59:59 CLS Outpatient KISHAN PLATT MD [facility] [id number] 01/23/2017 08:51:00 01/23/2017 23:59:59 CLS Outpatient KISHAN PLATT MD [facility] [id number] 01/16/2017 08:52:00 01/16/2017 23:59:59 CLS Outpatient KISHAN PLATT MD [facility] [id number] 01/11/2017 11:12:00 01/11/2017 23:59:59 CLS Outpatient KISHAN PLATT MD [facility] [id number] 01/09/2017 08:51:00 01/09/2017 23:59:59 CLS Outpatient KISHAN PLATT MD [facility] [id number] 01/04/2017 11:27:00 01/04/2017 23:59:59 CLS Outpatient KISHAN PLATT MD [facility] [id number] 01/02/2017 10:53:00 01/02/2017 23:59:59 CLS Outpatient KISHAN PLATT MD [facility] [id number] 12/28/2016 13:08:00 12/28/2016 23:59:59 CLS Outpatient KISHAN PLATT MD [facility] [id number] 12/26/2016 11:00:00 12/26/2016 23:59:59 CLS Outpatient KISHAN PLATT MD [facility] [id number] 12/21/2016 11:05:00 12/21/2016 23:59:59 CLS Outpatient KISHAN PLATT MD [facility] [id number] 12/19/2016 10:55:00 12/19/2016 23:59:59 CLS Outpatient KISHAN PLATT MD [facility] [id number] 12/17/2016 11:08:00 12/17/2016 23:59:59 CLS Outpatient KISHAN PLATT MD [facility] [id number] 12/12/2016 10:52:00 12/12/2016 23:59:59 CLS Outpatient KISHAN PLATT MD [facility] [id number] 12/10/2016 11:06:00 12/10/2016 16:00:00 DIS Outpatient KISHAN PLATT MD [facility] [id number] 11/22/2016 11:21:00 11/22/2016 23:59:59 CLS Outpatient KISHAN PLATT MD [facility] LAB E11.52 L97.22 [id number] 11/15/2016 12:21:00 11/20/2016 00:01:00 DIS Outpatient KISHAN PLATT MD [facility] [id number] 08/22/2016 12:36:00 08/22/2016 23:59:59 CLS Outpatient KISHAN PLATT MD [facility] LAB L97.222,E11.622 [id number] 08/08/2016 10:50:00 08/14/2016 00:01:00 DIS Outpatient KISHAN PLATT MD [facility] [id number] 08/05/2016 07:21:00 08/05/2016 10:47:00 DIS Emergency HUMERA CARDOZA DO [facility] ER SOB, SYNCOPE [id number] 05/04/2016 07:24:00 05/15/2016 00:01:00 DIS Outpatient KISHAN PLATT MD [facility] [id number] 04/11/2016 08:40:00 04/11/2016 23:59:59 CLS Outpatient KISHAN PLATT MD [facility] LAB NECROBIOSIS LIPOIDICA, TYPE 2 DIABETES [id number] 03/13/2016 11:33:00 03/13/2016 23:59:59 CLS Outpatient KAT WHITMAN FACC, ALI AKINP CCDS [facility] CARD CHEST DISCOMFORT,SOB ON EXERTION [id number] 03/02/2016 07:47:00 03/02/2016 23:59:59 CLS Outpatient KAT WHITMAN FACC, SHOAIB FACLaura CCDS [facility] CARD CHEST DISCOMFORT,SOB ON EXERTION [id number] 02/07/2016 08:47:00 02/13/2016 09:06:00 DIS Outpatient KISHAN PLATT MD [facility] [id number] 01/25/2016 12:33:00 01/29/2016 00:01:00 DIS Outpatient KISHAN PLATT MD [facility] [id number] 01/11/2016 14:04:00 01/11/2016 23:59:59 CLS Outpatient KISHAN PLATT MD [facility] LAB L92.1,L97.222,I87.032, I87.2,D68.51 [id number] 12/14/2015 13:10:00 12/14/2015 23:59:59 CLS Outpatient KISHAN PLATT MD [facility] LAB NON PRESSURE CHRONIC ULCER OF L CALF [id number] 11/24/2015 10:09:00 11/24/2015 23:59:59 CLS Outpatient RUDY JOHNSON MD [facility] LAB SKIN ULCER OF CALF, OBESITY,ESSENTIAL HTN,DVT [id number] 11/23/2015 13:35:00 11/23/2015 23:59:59 CLS Outpatient ALEX WHITMAN, RUDY Ortega [facility] LAB SKIN ULCER OF CALF,DVT [id number] 11/03/2015 14:06:00 11/03/2015 23:59:59 CLS Outpatient KISHAN PLATT MD [facility] RAD L LEG REFLUX EVALUATION [id number] 10/24/2015 14:13:00 10/25/2015 00:01:00 DIS Outpatient KISHAN PLATT MD [facility] [id number] 09/15/2015 14:10:00 09/15/2015 23:59:59 CLS Outpatient KISHAN PLATT MD [facility] RAD LEFT LOWER LEG ULCER W/ ABNORMAL JEANETTE [id number] 08/08/2015 15:43:00 08/08/2015 23:59:59 CLS Outpatient KISHAN PLATT MD [facility] LAB ELEVATED BLOOD SUGARS [id number] 07/29/2015 15:02:00 07/29/2015 23:59:59 CLS Outpatient KISHAN PLATT MD [facility] RAD ULCER OF THE CALF,PAD [id number] 03/31/2015 11:53:00 03/31/2015 23:59:59 CLS Preadmit ELENI KEITA APRN [facility] [id number] 02/12/2015 22:42:00 02/12/2015 23:57:00 DIS Emergency CHRIS ANDERSON MD [facility] ER LEFT LEG SWOLLEN HOT [id number] 08/04/2014 14:17:00 08/04/2014 23:59:59 CLS Outpatient ITALO RYAN MD [facility] RAD RT LEG PAIN [id number] 03/02/2018 10:59:00 ACT Emergency ALVIN RUIZ [facility] ER L SHOULDER PAIN [id number] 08/04/2014 14:16:00 Document Registration [id number] 08/04/2014 14:16:00 Document Registration [id number] 07/12/2011 13:17:00 Document Registration [id number] 05/10/2011 11:10:00 Document Registration [id number] 02/13/2011 18:07:00 Document Registration [id number] 02/13/2011 17:19:00 Document Registration [id number] 07/19/2016 14:57:00 07/19/2016 23:59:00 DIS Outpatient Humera Jarvis [facility] 02/13/2015 01:43:49 ACT Document Registration [id number] 02/02/2016 08:06:00 Document Registration [id number] 07/17/2017 08:00:00 07/17/2017 23:59:59 CLS Outpatient AMMONL AMELIA RAMIREZ [facility] [id number] 07/17/2017 08:00:00 Document Registration [id number] 02/22/2016 18:06:00 Document Registration
[2018-03-02] MEDS ORDERED: CYCLOBENZAPRINE 10 MG (FLEXERIL) TAB PO STA (11:29)
[2018-03-02] MEDS ORDERED: lisINopril 5 MG (PRINIVIL) TABLET PO ONE (11:30)
--- NOTE | 2018-03-02 11:36 | ED Upper Extremity ---
General Chief Complaint: Upper Extremity Stated Complaint: L SHOULDER PAIN Nursing Triage Note: Patient advises that he began experiencing left shoulder pain on saturday that has since become progressively worse. He denies any previous injury to the extremity. Nursing Sepsis Screen: No Definite Risk History of Present Illness Date Seen by Provider: Mar 02, 2018 Time Seen by Provider: 11:20 Initial Comments 37-year-old male presents for left shoulder, trapezius and neck pain. He reports this to be the third day his symptoms have been present. He denies an injury. He's had no previous history of left shoulder or neck problems or surgeries. He denies any radicular or paresthesia symptoms in his left arm. He has been taking ibuprofen 1000 mg every 6 hours with minimal to no improvement in his symptoms. He has also taken an occasional Tylenol with no improvement. He has been unable to continue working in the [employer] at [employer]. He is right-hand dominant. He reports having a scheduled appointment with his primary care provider in 3 days, he has been off of his blood pressure medicine, lisinopril 5 mg, for the last month. The left trapezius pain and has had no associated nausea, vomiting, chest pain, diaphoresis or shortness of breath. Pain/Injury Location: left shoulder Method of Injury: unknown Modifying Factors: Improves With Other (positional changes to the left shoulder ) Allergies and Home Medications Allergies Coded Allergies: Penicillins (Verified Allergy, Unknown, 03/02/18) Home Medications Aspirin 325 Mg Tablet, 325 MG PO DAILY, (Reported) Meclizine HCl 25 Mg Tablet, 25-50 MG PO Q6H Prescribed by: JUDI CARDOZA on 08/05/16 1025 Ondansetron 4 Mg Tab.rapdis, 4 MG PO Q4H Prescribed by: JUDI CARDOZA on 08/05/16 1025 Patient Home Medication List Home Medication List Reviewed: Yes Review of Systems Constitutional: no symptoms reported, see HPI Musculoskeletal: see HPI, joint pain (left shoulder), neck pain (left trapezius and rhomboid region) All Other Systems Reviewed Negative Unless Noted: Yes Past Nqkxate-Cqhfas-Reakhh Hx Past Med/Social Hx: Reviewed Nursing Past Med/Soc Hx Patient Social History Alcohol Use: Occasionally Uses Recreational Drug Use: No Smoking Status: Never a Smoker Recent Foreign Travel: No Contact w/Someone Who Travel: No Recent Infectious Disease Expo: No Recent Hopitalizations: No Seasonal Allergies Seasonal Allergies: No Past Medical History Surgeries: Yes (WISDOM TEETH REMOVED) Respiratory: No Cardiac: Yes Chronic Edema/Swelling, Deep Vein Thrombosis, High Cholesterol, Hypertension Neurological: No Reproductive Disorders: No Gastrointestinal: No Musculoskeletal: No Endocrine: Yes (MORBID OBESITY) Diabetes, Non-Insulin dep Cancer: No Psychosocial: Yes Anxiety Integumentary: Yes (WOUNDS ON LEFT LOWER LEG-GOES TO WOUND CARE; FEVER BLISTERS ) 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 oz. 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 Full range of motion left shoulder, no discomfort in the shoulder, mild discomfort in the left trapezius. Negative apprehension, impingement, and O 'Javier's testing. Power 5/5 biceps, triceps, and neck sternal rotators. Her vascular status intact right upper extremity symmetric with the left. Progress/Results/Core Measures Results/Orders My Orders Orders - ALVIN RUIZ Lisinopril Tablet (Zestril Tablet) (03/02/18 11:30) Cyclobenzaprine Tablet (Flexeril Tablet) (03/02/18 11:29) Tramadol Tablet (Ultram Tablet) (10/21/18 11:29) Vital Signs/I&O 18 11:18 Temp 97.3 Pulse 80 Resp 14 B/P (MAP) 140/113 (122) Pulse Ox 95 O2 Delivery Room Air Blood Pressure Mean: 122 Progress Progress Note : Time: 11:20 Progress Note Patient seen and evaluated, discussed findings in detail with the patient, with no associated injury and neurological systems intact no additional imaging was recommended today. Will attempt conservative management and keep scheduled appointment with his primary care provider in 3 days. Will resume his lisinopril that he has been off of for 30 days due to completing all medications and no refills. Discharge instructions and return precautions reviewed with the patient. All questions answered. Departure Impression Primary Impression: Strain of left trapezius muscle Qualified Codes: S46.812A - Strain of other muscles, fascia and tendons at shoulder and upper arm level, left arm, initial encounter Additional Impression: Left shoulder pain Qualified Codes: M25.512 - Pain in left shoulder Disposition: 01 HOME, SELF-CARE Condition: Improved Departure-Patient Inst. Decision time for Depature: 11:35 Referrals: JUDI DANIELS MD (PCP/Family) Primary Care Physician Patient Instructions: Cervical Muscle Strain (DC), Neck Stretches, Shoulder Pain (DC) Add. Discharge Instructions: Alternate between heat and ice on the left shoulder and neck for 20 minutes at a time, while awake. Take the Flexeril every 8 hours as needed for muscle spasms. Take the tramadol every 8 hours as needed for pain. Continue to take ibuprofen 800 mg every 6 hours. Take your blood pressure medication daily as prescribed. Keep your scheduled follow-up appointment with your primary care provider in 3 days. Return to emergency department for shoulder/neck issues not relieved with the above recommendations or associated with chest pain, shortness of breath, nausea and vomiting, or sweating; if symptoms worsen significantly; or new concerns. All discharge instructions reviewed with patient and/or family. Voiced understanding. 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
[2018-03-02] MEDS ORDERED: CYCL10TA9 PO (11:42)
[2018-03-02] MEDS ORDERED: TRAM50TA2 PO (11:42)
[2018-03-02] MEDS ORDERED: LISI-556 PO (11:42)
[2018-03-02 11:49] VITALS: BP 139/109
== END 2018-03-02 11:48 | disposition home or self-care (01) ==
LOC: EDUNIT# 10:58 → ER 10:59
DX: S46.812A Strain of other muscles, fascia and tendons at shoulder and upper arm level, left arm, initial encounter (principal); E78.00 Pure hypercholesterolemia, unspecified; I10 Essential (primary) hypertension; E66.01 Morbid (severe) obesity due to excess calories; E11.9 Type 2 diabetes mellitus without complications; F41.9 Anxiety disorder, unspecified; Z88.0 Allergy status to penicillin; Z68.43 Body mass index [BMI] 50.0-59.9, adult; Z79.82 Long term (current) use of aspirin; Z86.718 Personal history of other venous thrombosis and embolism; X58.XXXA Exposure to other specified factors, initial encounter
CPT/HCPCS: 99283

== ENCOUNTER → 2018-03-06 | Outpatient (CLI) | payer BC ==
[~2018-03-06] MED LIST changes: +CYCL10TA9 PO; +LISI-556 PO; +TRAM50TA2 PO
[2018-03-06 08:59] LABS: HEMOGLOBIN 12.8 G/DL (13.3-17.7); MEAN PLATELET VOLUME 10.7 FL (7.4-10.4); RED BLOOD COUNT 4.49 10^6/uL (4.35-5.85); RED CELL DISTRIBUTION WIDTH 13.9 % (10.0-14.5)
[2018-03-06 09:01] LABS: BILIRUBIN,URINE NEGATIVE (NEGATIVE); CLARITY,URINE CLEAR; COLOR,URINE YELLOW; GLUCOSE, URINE (UA) 1+ (NEGATIVE); KETONES,URINE NEGATIVE (NEGATIVE); LEUKOCYTE ESTERASE ,URINE NEGATIVE (NEGATIVE); NITRITE,URINE NEGATIVE (NEGATIVE); PH,URINE 6 (5-9); PROTEIN,URINE 1+ (NEGATIVE); UROBILINOGEN,URINE NORMAL (NORMAL)
[2018-03-06 09:10] LABS: BACTERIA,URINE NEGATIVE /HPF; WBC,URINE RARE /HPF
[2018-03-06 09:22] LABS: ALANINE AMINOTRANSFERASE 38 U/L (0-55); ALBUMIN 3.7 GM/DL (3.2-4.5); ALKALINE PHOSPHATASE 76 U/L (40-136); BILIRUBIN,TOTAL 0.5 MG/DL (0.1-1.0); BUN/CREATININE RATIO 14; CALCIUM 9.1 MG/DL (8.5-10.1); CARBON DIOXIDE 21 MMOL/L (21-32); CHLORIDE 109 MMOL/L (98-107); CHOLESTEROL 189 MG/DL (< 200); CREATININE SERUM 0.86 MG/DL (0.60-1.30); GFR ESTIMATED > 60; GLUCOSE 100 MG/DL (70-105); HDL CHOLESTEROL 39 MG/DL (40-60); POTASSIUM 3.6 MMOL/L (3.6-5.0); SODIUM 141 MMOL/L (135-145); TOTAL PROTEIN 7.3 GM/DL (6.4-8.2); TRIGLYCERIDES 117 MG/DL (<150); VLDL CHOLESTEROL 23 MG/DL (5-40)
== END ==
LOC: LAB 08:40
PROVIDERS: ATTEND Family Medicine
DX: I10 Essential (primary) hypertension (principal); E78.5 Hyperlipidemia, unspecified; E88.81 Metabolic syndrome and other insulin resistance
CPT/HCPCS: 36415; 80053; 80061; 81000; 82043; 83036; 84443; 85027

== ENCOUNTER → 2018-03-20 | Outpatient (CLI) | payer BC ==
--- NOTE | 2018-03-20 15:23 | Diagnostic Imaging Report ---
PROCEDURE: US carotid duplex, bilateral. TECHNIQUE: Multiple real-time grayscale images were obtained over the carotid arteries in various projections, bilaterally. Additional duplex Doppler and color Doppler images were also obtained. INDICATION: Facial numbness. FINDINGS: No significant plaquing is identified in either carotid system. Velocities are normal bilaterally. No velocity elevation or stenosis is seen. Both vertebral arteries show antegrade flow. IMPRESSION: Unremarkable bilateral carotid Doppler. Parameters based on the consensus panel Power-Scale and Doppler ultrasound criteria published March 2003, Radiology, Volume 229. DOPPLER (peak systolic velocity M/S Right Left CCA 1.02 1.74 ICA Proximal .72 .88 ICA Mid .61 .86 ICA Distal 1.02 .72 RATIO 1.0 .51 ECA .93 1.64 VERT .38 .49 Dictated by: Dictated on workstation # [id number]
== END ==
LOC: RAD 14:00
PROVIDERS: ATTEND Family Medicine
DX: E78.5 Hyperlipidemia, unspecified (principal); I10 Essential (primary) hypertension; R20.0 Anesthesia of skin; Z82.49 Family history of ischemic heart disease and other diseases of the circulatory system
CPT/HCPCS: 93880

== ENCOUNTER → 2018-12-30 | Outpatient (CLI) | payer BC ==
[2018-12-30 09:46] LABS: BASOPHILS % (AUTO) 0 % (0-10); EOSINOPHILS # (AUTO) 0.3 10^3/uL (0.0-0.3); EOSINOPHILS % (AUTO) 4 % (0-10); HEMATOCRIT 41 % (40-54); HEMOGLOBIN 13.3 G/DL (13.3-17.7); LYMPHOCYTES # (AUTO) 1.4 X 10^3 (1.0-4.0); LYMPHOCYTES % (AUTO) 16 % (12-44); MEAN CORPUSCULAR HEMOGLOBIN 30 PG (25-34); MEAN CORPUSCULAR HGB CONC 33 G/DL (32-36); MEAN CORPUSCULAR VOLUME 90 FL (80-99); MEAN PLATELET VOLUME 10.9 FL (7.4-10.4); MONOCYTES # (AUTO) 0.7 X 10^3 (0.0-1.0); MONOCYTES % (AUTO) 8 % (0-12); NEUTROPHILS # (AUTO) 6.1 X 10^3 (1.8-7.8); NEUTROPHILS % (AUTO) 72 % (42-75); PLATELET COUNT 261 10^3/uL (130-400); RED CELL DISTRIBUTION WIDTH 14.2 % (10.0-14.5); WHITE BLOOD COUNT 8.6 10^3/uL (4.3-11.0)
[2018-12-30 10:06] LABS: ALANINE AMINOTRANSFERASE 78 U/L (0-55); ALBUMIN 3.8 GM/DL (3.2-4.5); ALKALINE PHOSPHATASE 70 U/L (40-136); BILIRUBIN,TOTAL 0.5 MG/DL (0.1-1.0); BUN/CREATININE RATIO 12; CALCIUM 9.7 MG/DL (8.5-10.1); CARBON DIOXIDE 22 MMOL/L (21-32); CHLORIDE 109 MMOL/L (98-107); CHOLESTEROL 166 MG/DL (< 200); CREATININE SERUM 0.81 MG/DL (0.60-1.30); GFR ESTIMATED > 60; GLUCOSE 115 MG/DL (70-105); HDL CHOLESTEROL 40 MG/DL (40-60); POTASSIUM 4.1 MMOL/L (3.6-5.0); SODIUM 142 MMOL/L (135-145); TOTAL PROTEIN 7.8 GM/DL (6.4-8.2); TRIGLYCERIDES 119 MG/DL (<150); VLDL CHOLESTEROL 24 MG/DL (5-40)
== END ==
LOC: LAB 09:30
PROVIDERS: ATTEND Family Medicine
DX: E78.5 Hyperlipidemia, unspecified (principal); I10 Essential (primary) hypertension; E11.9 Type 2 diabetes mellitus without complications
CPT/HCPCS: 36415; 80053; 80061; 82043; 83036; 84443; 85025

== ENCOUNTER → 2019-06-30 | Outpatient (CLI) | payer BC ==
[~2019-06-30] MED LIST changes: +METF500T19; -METF500T8; -TRAM50TA2 PO; +TRM50T PO
[2019-06-30 10:09] LABS: BASOPHILS % (AUTO) 0 % (0-10); EOSINOPHILS # (AUTO) 0.6 10^3/uL (0.0-0.3); EOSINOPHILS % (AUTO) 5 % (0-10); HEMATOCRIT 42 % (40-54); HEMOGLOBIN 13.6 G/DL (13.3-17.7); LYMPHOCYTES # (AUTO) 1.9 X 10^3 (1.0-4.0); LYMPHOCYTES % (AUTO) 16 % (12-44); MEAN CORPUSCULAR HEMOGLOBIN 29 PG (25-34); MEAN CORPUSCULAR HGB CONC 33 G/DL (32-36); MEAN CORPUSCULAR VOLUME 89 FL (80-99); MEAN PLATELET VOLUME 10.8 FL (7.4-10.4); MONOCYTES # (AUTO) 0.8 X 10^3 (0.0-1.0); MONOCYTES % (AUTO) 7 % (0-12); NEUTROPHILS # (AUTO) 8.5 X 10^3 (1.8-7.8); NEUTROPHILS % (AUTO) 72 % (42-75); PLATELET COUNT 297 10^3/uL (130-400); RED CELL DISTRIBUTION WIDTH 14.2 % (10.0-14.5); WHITE BLOOD COUNT 11.8 10^3/uL (4.3-11.0)
[2019-06-30 10:31] LABS: ALANINE AMINOTRANSFERASE 63 U/L (0-55); ALKALINE PHOSPHATASE 79 U/L (40-136); BILIRUBIN,TOTAL 0.6 MG/DL (0.1-1.0); BUN/CREATININE RATIO 15; CALCIUM 9.6 MG/DL (8.5-10.1); CARBON DIOXIDE 23 MMOL/L (21-32); CHLORIDE 108 MMOL/L (98-107); CHOLESTEROL 162 MG/DL (< 200); CREATININE SERUM 0.87 MG/DL (0.60-1.30); GFR ESTIMATED > 60; GLUCOSE 122 MG/DL (70-105); HDL CHOLESTEROL 42 MG/DL (40-60); POTASSIUM 3.9 MMOL/L (3.6-5.0); SODIUM 142 MMOL/L (135-145); TOTAL PROTEIN 7.8 GM/DL (6.4-8.2); TRIGLYCERIDES 102 MG/DL (<150); VLDL CHOLESTEROL 20 MG/DL (5-40)
== END ==
LOC: LAB 09:47
PROVIDERS: ATTEND Family Medicine
DX: E11.9 Type 2 diabetes mellitus without complications (principal); E78.5 Hyperlipidemia, unspecified; I10 Essential (primary) hypertension
CPT/HCPCS: 36415; 80053; 80061; 82043; 83036; 84443; 85025

== ENCOUNTER → 2019-12-31 | Outpatient (CLI) | payer BC ==
[~2019-12-31] MED LIST changes: -MECL-106 PO; +MECL-149 PO; +METF-865; -METF500T19
[2019-12-31 10:07] LABS: BASOPHILS % (AUTO) 0 % (0-10); EOSINOPHILS # (AUTO) 0.4 10^3/uL (0.0-0.3); EOSINOPHILS % (AUTO) 5 % (0-10); HEMATOCRIT 42 % (40-54); HEMOGLOBIN 13.6 G/DL (13.3-17.7); LYMPHOCYTES # (AUTO) 1.6 X 10^3 (1.0-4.0); LYMPHOCYTES % (AUTO) 18 % (12-44); MEAN CORPUSCULAR HEMOGLOBIN 29 PG (25-34); MEAN CORPUSCULAR HGB CONC 33 G/DL (32-36); MEAN CORPUSCULAR VOLUME 88 FL (80-99); MEAN PLATELET VOLUME 10.5 FL (7.4-10.4); MONOCYTES # (AUTO) 0.6 X 10^3 (0.0-1.0); MONOCYTES % (AUTO) 7 % (0-12); NEUTROPHILS # (AUTO) 6.1 X 10^3 (1.8-7.8); NEUTROPHILS % (AUTO) 70 % (42-75); PLATELET COUNT 267 10^3/uL (130-400); WHITE BLOOD COUNT 8.8 10^3/uL (4.3-11.0)
[2019-12-31 10:58] LABS: ALANINE AMINOTRANSFERASE 81 U/L (0-55); ALBUMIN 3.8 GM/DL (3.2-4.5); ALKALINE PHOSPHATASE 78 U/L (40-136); BILIRUBIN,TOTAL 0.5 MG/DL (0.1-1.0); BUN/CREATININE RATIO 14; CALCIUM 9.1 MG/DL (8.5-10.1); CARBON DIOXIDE 22 MMOL/L (21-32); CHLORIDE 109 MMOL/L (98-107); CHOLESTEROL 158 MG/DL (< 200); GFR ESTIMATED > 60; GLUCOSE 166 MG/DL (70-105); HDL CHOLESTEROL 36 MG/DL (40-60); POTASSIUM 3.9 MMOL/L (3.6-5.0); SODIUM 140 MMOL/L (135-145); TOTAL PROTEIN 7.6 GM/DL (6.4-8.2); TRIGLYCERIDES 155 MG/DL (<150); VLDL CHOLESTEROL 31 MG/DL (5-40)
== END ==
LOC: LAB 09:43
PROVIDERS: ATTEND Family Medicine
DX: E11.65 Type 2 diabetes mellitus with hyperglycemia (principal); I10 Essential (primary) hypertension; E78.5 Hyperlipidemia, unspecified
CPT/HCPCS: 36415; 80053; 80061; 82043; 83036; 84443; 85025

== ENCOUNTER → 2020-07-25 | Outpatient (CLI) | payer BC ==
[~2020-07-25] MED LIST changes: -LISI-556; -LISI-556 PO; +LISI-729; +LISI-729 PO
[2020-07-25 11:17] LABS: CLARITY,URINE CLEAR; COLOR,URINE YELLOW; GLUCOSE, URINE (UA) TRACE (NEGATIVE); KETONES,URINE TRACE (NEGATIVE); LEUKOCYTE ESTERASE ,URINE NEGATIVE (NEGATIVE); NITRITE,URINE NEGATIVE (NEGATIVE); PH,URINE 5.5 (5-9); PROTEIN,URINE TRACE (NEGATIVE)
[2020-07-25 11:27] LABS: HEMOGLOBIN 13.3 g/dL (13.3-17.7); MEAN PLATELET VOLUME 11.2 fL (9.0-12.2); WHITE BLOOD COUNT 7.5 10^3/uL (4.3-11.0)
[2020-07-25 11:28] LABS: BACTERIA,URINE NEGATIVE /HPF; BILIRUBIN,URINE 1+ (NEGATIVE); SQUAMOUS EPITHELIAL CELL,UR 0-2 /HPF
[2020-07-25 11:40] LABS: ALANINE AMINOTRANSFERASE 65 U/L (0-55); ALBUMIN 3.3 GM/DL (3.2-4.5); ALKALINE PHOSPHATASE 71 U/L (40-136); BILIRUBIN,TOTAL 0.5 MG/DL (0.1-1.0); BUN/CREATININE RATIO 14; CALCIUM 8.5 MG/DL (8.5-10.1); CARBON DIOXIDE 25 MMOL/L (21-32); CHLORIDE 106 MMOL/L (98-107); CHOLESTEROL 184 MG/DL (< 200); CREATININE SERUM 0.77 MG/DL (0.60-1.30); GFR ESTIMATED > 60; GLUCOSE 244 MG/DL (70-105); HDL CHOLESTEROL 35 MG/DL (40-60); POTASSIUM 3.6 MMOL/L (3.6-5.0); SODIUM 139 MMOL/L (135-145); TOTAL PROTEIN 6.9 GM/DL (6.4-8.2); TRIGLYCERIDES 157 MG/DL (<150); VLDL CHOLESTEROL 31 MG/DL (5-40)
== END ==
LOC: LAB 10:47
PROVIDERS: ATTEND Family Medicine
DX: I10 Essential (primary) hypertension (principal); E78.5 Hyperlipidemia, unspecified; E11.65 Type 2 diabetes mellitus with hyperglycemia
CPT/HCPCS: 36415; 80053; 80061; 81000; 82043; 83036; 85027

== ENCOUNTER → 2021-03-20 | Outpatient (CLI) | payer BC ==
[2021-03-20 12:38] LABS: HEMATOCRIT 41 % (40-54); MEAN CORPUSCULAR HEMOGLOBIN 28 pg (25-34); MEAN CORPUSCULAR HGB CONC 32 g/dL (32-36); MEAN CORPUSCULAR VOLUME 87 fL (80-99); MEAN PLATELET VOLUME 10.5 fL (9.0-12.2); PLATELET COUNT 260 10^3/uL (130-400); WHITE BLOOD COUNT 7.9 10^3/uL (4.3-11.0)
[2021-03-20 12:45] LABS: ALBUMIN 3.4 GM/DL (3.2-4.5); POTASSIUM 3.9 MMOL/L (3.6-5.0)
[2021-03-20 12:46] LABS: CALCIUM 8.5 MG/DL (8.5-10.1)
[2021-03-20 12:48] LABS: TOTAL PROTEIN 6.8 GM/DL (6.4-8.2)
[2021-03-20 12:49] LABS: BILIRUBIN,TOTAL 0.4 MG/DL (0.1-1.0)
[2021-03-20 12:51] LABS: CREATININE SERUM 0.76 MG/DL (0.60-1.30)
== END ==
LOC: LAB 12:03
PROVIDERS: ATTEND Family Medicine
DX: I10 Essential (primary) hypertension (principal); E11.65 Type 2 diabetes mellitus with hyperglycemia; E78.6 Lipoprotein deficiency
CPT/HCPCS: 36415; 80053; 80061; 82043; 83036; 85027

== ENCOUNTER 2021-04-09 21:35 | Emergency (ER) | payer BC ==
[~2021-04-09] VITALS: Ht 182.8 cm; Wt 172.3 kg
[~2021-04-09 21:35] MED LIST changes: +CYCL10TA25 PO; -CYCL10TA9 PO; -LISI-729; -LISI-729 PO; +LISI5TAB20; +LISI5TAB20 PO
--- NOTE | 2021-04-09 22:32 | ED General ---
General Chief Complaint: COVID19 Suspect/Confirmed Stated Complaint: SOA/BODYACHES/DIZZY/LIGHTHEADED Source of Information: Patient History of Present Illness Date Seen by Provider: Apr 09, 2021 Time Seen by Provider: 21:59 Initial Comments PT ARRIVES VIA POV FROM HOME] STATES HE STARTED FEELING SICK THIS EVENING AROUND 1800, WHILE AT WORK AT [employer] C/O BODY ACHES C/O DIZZINESS/LIGHTHEADEDNESS C/O FATIGUE C/O SWEATS C/O SHORTNESS OF BREATH + NAUSEA, NO VOMITING DIARRHEA X 3 SUBJECTIVE FEVER/CHILLS + SORE THROAT NO LOSS OF TASTE OR SMELL + HEADACHE NO KNOWN SICK CONTACTS BUT WORKS AT [employer] PT HAD MODERNA COVID-19 VACCINE IN SEPTEMBER 2020. PT IS [id number] HAS FACTOR 5 LEIDEN, WITH HISTORY OF DVT'S HX OF HTN HX OF CHRONIC FOOT AND LEG WOUNDS MORBIDLY OBESE PCP: WAS DR. DANIELS, HAS ALSO BEEN SEEN AT [facility] Allergies and Home Medications Allergies Coded Allergies: Penicillins (Verified Allergy, Unknown, 03/02/18) Patient Home Medication List Aspirin (Aspirin) 325 Mg Tablet, 325 MG PO DAILY, (Reported) Entered as Reported by: FANNY STORY on 02/12/15 2252 Cyclobenzaprine HCl (Cyclobenzaprine HCl) 10 Mg Tablet, 10 MG PO Q8H Prescribed by: ALVIN RUIZ on 03/02/18 1142 Lisinopril (Lisinopril) 5 Mg Tablet, (Reported) Entered as Reported by: RENETTA LOPEZ on 08/05/16 0731 Lisinopril (Lisinopril) 5 Mg Tablet, 5 MG PO DAILY Prescribed by: ALVIN RUIZ on 03/02/18 1142 Meclizine HCl (Meclizine HCl) 25 Mg Tablet, 25-50 MG PO Q6H Prescribed by: JUDI CARDOZA on 08/05/16 1025 Metformin HCl (Metformin HCl ER) 500 Mg Tab.er.24h, (Reported) Entered as Reported by: RENETTA LOPEZ on 08/05/16 0731 Ondansetron (Zofran Odt) 4 Mg Tab.rapdis, 4 MG PO Q4H Prescribed by: JUDI CARDOZA on 08/05/16 1025 Ondansetron (Ondansetron Odt) 8 Mg Tab.rapdis, 8 MG PO Q4H PRN for NAUSEA/VOMITING Prescribed by: JUDI CARDOZA on 04/09/21 6591 Tacrolimus (Protopic) 100 Gm Oint...g., (Reported) Entered as Reported by: RENETTA LOPEZ on 08/05/16 0731 Tramadol HCl (Tramadol HCl) 50 Mg Tablet, 50 MG PO Q8H Prescribed by: ALVIN RUIZ on 03/02/18 1142 Review of Systems Review of Systems Constitutional: see HPI, diaphoresis, fever EENTM: see HPI, nose congestion, throat pain Respiratory: no symptoms reported, cough, short of breath Cardiovascular: no symptoms reported Gastrointestinal: see HPI; No abdominal pain; diarrhea, nausea; No vomiting Genitourinary: no symptoms reported Musculoskeletal: see HPI (BODY ACHES) Skin: no symptoms reported Psychiatric/Neurological: See HPI, Headache Hematologic/Lymphatic: No Symptoms Reported Immunological/Allergic: no symptoms reported Past Tjlqqts-Gudknl-Nljidd Hx Seasonal Allergies Seasonal Allergies: No Past Medical History Surgeries: Yes (WISDOM TEETH REMOVED) Respiratory: No Cardiac: Yes Chronic Edema/Swelling, Deep Vein Thrombosis, High Cholesterol, Hypertension Neurological: No Reproductive Disorders: No Gastrointestinal: No Musculoskeletal: No Endocrine: Yes (MORBID OBESITY) Diabetes, Non-Insulin dep Cancer: No Psychosocial: Yes Anxiety Integumentary: Yes (WOUNDS ON LEFT LOWER LEG-GOES TO WOUND CARE; FEVER BLISTERS) 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 oz. 192.723220rf; BMI Method:Stated Progress/Results/Core Measures Suspected Sepsis SIRS Temperature: Pulse: Respiratory Rate: Blood Pressure / Mean: Results/Orders Lab Results Laboratory Tests Test 04/09/21 22:04 Range/Units Influenza Type A (RT-PCR) Not Detected Not Detecte Influenza Type B (RT-PCR) Not Detected Not Detecte SARS-CoV-2 RNA (RT-PCR) Not Detected Not Detecte My Orders Orders - JUDI CARDOZA DO Influenza A And B By Pcr (04/09/21 21:37) Covid 19 Inhouse Test (04/09/21 21:37) Rx-Ondansetron Po (Rx-Zofran Po) (04/09/21 23:19) Vital Signs/I&O 04/09/21 04/09/21 04/09/21 22:00 22:00 23:30 Temp 36.8 36.5 Pulse 100 103 Resp 22 22 B/P (MAP) 132/84 (100) 155/90 Pulse Ox 96 96 O2 Delivery Room Air Room Air Room Air Capillary Refill : Departure Impression Primary Impression: Person under investigation for COVID-19 Disposition: HOME, SELF-CARE Condition: Stable Departure-Patient Inst. Decision time for Depature: 23:15 Referrals: JUDI DANIELS MD (PCP/Family) Primary Care Physician Patient Instructions: COVID-19 Tests, Preventing the Spread of an Infectious Disease Add. Discharge Instructions: TYLENOL 1 GRAM/ MOTRIN 800 MG 4 TIMES A DAY FOR PAIN OR FEVER OVER THE COUNTER MEDICATIONS FOR COUGH AND CONGESTION LOTS OF CLEAR LIQUIDS TAKE YOUR REGULAR MEDICATIONS PRESCRIBED QUARANTINE YOURSELF AND ALL HOUSEHOLD AND CLOSE CONTACTS UNTIL YOU ARE RECHECKED AND CLEARED BY YOU NEED TO HAVE REPEAT COVID-19 TESTING IN 2-3 DAYS--YOU MAY FOLLOW UP WITH YOUR PCP, OR GO TO [facility] OR YOUR [facility] FOR REPEAT TESTING RETURN TO ER IF SYMPTOMS WORSEN All discharge instructions reviewed with patient and/or family. Voiced understanding. Scripts Ondansetron (Ondansetron Odt) 8 Mg Tab.rapdis 8 MG PO Q4H PRN for NAUSEA/VOMITING, #10 TAB Prov: JUDI CARDOZA DO 04/09/21 Work/School Note: Work Release Form Date Seen in the Emergency Department: Apr 09, 2021 Restrictions: Need Release from Doctor JUDI CARDOZA DO Apr 09, 2021 22:31
[2021-04-09] MEDS ORDERED: RX-ONDANSETRON 4 MG ODT (ZOFRAN) PPK #4 PO STA (23:19)
[2021-04-09] MEDS ORDERED: ONDA8TAB13 PO (23:24)
[2021-04-09 23:30] VITALS: BP 155/90
== END 2021-04-09 23:34 | disposition home or self-care (01) ==
LOC: EDUNIT# 21:35 → ER 21:36
DX: Z20.822 Contact with and (suspected) exposure to COVID-19 (principal); I10 Essential (primary) hypertension; E11.9 Type 2 diabetes mellitus without complications; E66.01 Morbid (severe) obesity due to excess calories; Z68.45 Body mass index [BMI] 70 or greater, adult; Z79.82 Long term (current) use of aspirin; Z79.84 Long term (current) use of oral hypoglycemic drugs
CPT/HCPCS: 87636; 99283

== ENCOUNTER → 2021-04-12 | Outpatient (CLI) | payer BC ==
[~2021-04-12] MED LIST changes: +ONDA8TAB13 PO
[2021-04-12 11:10] LABS: BASOPHILS % (AUTO) 0 % (0-10); EOSINOPHILS # (AUTO) 0.3 10^3/uL (0.0-0.3); EOSINOPHILS % (AUTO) 4 % (0-10); HEMATOCRIT 44 % (40-54); HEMOGLOBIN 13.8 g/dL (13.3-17.7); LYMPHOCYTES # (AUTO) 1.7 10^3/uL (1.0-4.0); LYMPHOCYTES % (AUTO) 21 % (12-44); MEAN CORPUSCULAR HEMOGLOBIN 27 pg (25-34); MEAN CORPUSCULAR HGB CONC 31 g/dL (32-36); MEAN CORPUSCULAR VOLUME 87 fL (80-99); MEAN PLATELET VOLUME 10.4 fL (9.0-12.2); MONOCYTES # (AUTO) 0.6 10^3/uL (0.0-1.0); MONOCYTES % (AUTO) 8 % (0-12); NEUTROPHILS # (AUTO) 5.4 10^3/uL (1.8-7.8); NEUTROPHILS % (AUTO) 67 % (42-75); PLATELET COUNT 262 10^3/uL (130-400); WHITE BLOOD COUNT 8.1 10^3/uL (4.3-11.0)
[2021-04-12 11:19] LABS: ALBUMIN 3.7 GM/DL (3.2-4.5); CHLORIDE 107 MMOL/L (98-107); POTASSIUM 3.7 MMOL/L (3.6-5.0); SODIUM 140 MMOL/L (135-145)
[2021-04-12 11:20] LABS: CALCIUM 9.3 MG/DL (8.5-10.1)
[2021-04-12 11:21] LABS: GLUCOSE 151 MG/DL (70-105); TOTAL PROTEIN 7.6 GM/DL (6.4-8.2)
[2021-04-12 11:22] LABS: CARBON DIOXIDE 24 MMOL/L (21-32)
[2021-04-12 11:23] LABS: BILIRUBIN,TOTAL 0.4 MG/DL (0.1-1.0)
[2021-04-12 11:25] LABS: ALKALINE PHOSPHATASE 83 U/L (40-136); GFR ESTIMATED 107
[2021-04-12 11:26] LABS: BUN/CREATININE RATIO 16
[2021-04-12 11:28] LABS: ALANINE AMINOTRANSFERASE 25 U/L (0-55)
[2021-04-12 11:34] LABS: CREATINE KINASE MB 0.7 NG/ML (<6.6)
--- NOTE | 2021-04-12 12:33 | Diagnostic Imaging Report ---
PATIENT HISTORY: CHEST PAIN. TECHNIQUE: Two views of the chest. COMPARISON: 08/05/2016 FINDINGS: The lung volumes are normal. There is eventration of the right hemidiaphragm. No focal consolidation is seen. No large pleural effusion or pneumothorax is seen. The cardiomediastinal silhouette is normal in size and contour. No acute osseous abnormality is seen. IMPRESSION: No acute pulmonary abnormality seen. Dictated by: Dictated on workstation # [id number]
== END ==
LOC: RAD 10:48
PROVIDERS: ATTEND Physician Assistant
DX: R07.89 Other chest pain (principal); I10 Essential (primary) hypertension; E78.5 Hyperlipidemia, unspecified; R73.03 Prediabetes; R06.02 Shortness of breath; Z20.828 Contact with and (suspected) exposure to other viral communicable diseases
CPT/HCPCS: 36415; 71046; 80053; 82553; 83874; 84484; 85025; 85379

== ENCOUNTER → 2021-04-12 | Outpatient (CLI) | payer BC ==
[~2021-04-12] MED LIST changes: +CATHETER FLUSH 10 ML SYR IV PRN; +HOLD METFORMIN - RECEIVED CONTRAST 20 ML VIAL IV SCH; +IOHEXOL 350 MG/ML 100 ML (OMNIPAQUE 350) VIAL IV ONE; +NS 100 ML (IVPB) BAG IV ONE
--- NOTE | 2021-04-12 14:36 | Diagnostic Imaging Report ---
PROCEDURE: CT angiography of the chest with contrast. TECHNIQUE: Multiple contiguous axial images were obtained through the chest after uneventful bolus administration of intravenous contrast. 3D reconstructed CTA MIP acquisitions were also performed. Auto Exposure Controls were utilized during the CT exam to meet ALARA standards for radiation dose reduction. INDICATION: Dyspnea and elevated D-dimer There is suboptimal opacification of pulmonary arteries however no intraluminal filling defect is identified. Thoracic aorta is of normal caliber. Lungs are clear. There is no significant pleural effusion or pericardial fluid. No pathologically enlarged adenopathy is identified. Note is made of partially calcified stone in the lumen of the gallbladder in the neck region without associated wall thickening or pericholecystic fluid. IMPRESSION: No CTA evidence of pulmonary embolism on limited study. No acute abnormality seen in the thorax. Note is made of cholelithiasis. Dictated by: Dictated on workstation # [id number]
== END ==
LOC: RAD 13:15
PROVIDERS: ATTEND Physician Assistant
DX: R06.00 Dyspnea, unspecified (principal); R79.1 Abnormal coagulation profile
CPT/HCPCS: 71275

== ENCOUNTER → 2021-12-04 | Outpatient (CLI) | payer BC ==
[~2021-12-04] MED LIST changes: -CATHETER FLUSH 10 ML SYR IV PRN; -HOLD METFORMIN - RECEIVED CONTRAST 20 ML VIAL IV SCH; -IOHEXOL 350 MG/ML 100 ML (OMNIPAQUE 350) VIAL IV ONE; -NS 100 ML (IVPB) BAG IV ONE
[2021-12-04 13:41] LABS: HEMATOCRIT 41 % (40-54); HEMOGLOBIN 13.1 g/dL (13.3-17.7); MEAN CORPUSCULAR HEMOGLOBIN 28 pg (25-34); MEAN CORPUSCULAR HGB CONC 32 g/dL (32-36); MEAN CORPUSCULAR VOLUME 86 fL (80-99); MEAN PLATELET VOLUME 10.6 fL (9.0-12.2); PLATELET COUNT 243 10^3/uL (130-400); WHITE BLOOD COUNT 8.1 10^3/uL (4.3-11.0)
[2021-12-04 13:48] LABS: BILIRUBIN,URINE NEGATIVE (NEGATIVE); CLARITY,URINE CLEAR; COLOR,URINE YELLOW; GLUCOSE, URINE (UA) 3+ (NEGATIVE); KETONES,URINE 1+ (NEGATIVE); LEUKOCYTE ESTERASE ,URINE NEGATIVE (NEGATIVE); NITRITE,URINE NEGATIVE (NEGATIVE); PH,URINE 5.5 (5-9); PROTEIN,URINE NEGATIVE (NEGATIVE)
[2021-12-04 13:58] LABS: BACTERIA,URINE TRACE /HPF
[2021-12-04 14:09] LABS: ALBUMIN 3.8 GM/DL (3.2-4.5); BILIRUBIN,TOTAL 0.8 MG/DL (0.1-1.0); CALCIUM 9.1 MG/DL (8.5-10.1); CREATININE SERUM 0.81 MG/DL (0.60-1.30); POTASSIUM 3.5 MMOL/L (3.6-5.0); TOTAL PROTEIN 7.3 GM/DL (6.4-8.2)
== END ==
LOC: LAB 13:05
PROVIDERS: ATTEND Family Medicine
DX: I10 Essential (primary) hypertension (principal); R78.5 Finding of other psychotropic drug in blood; E11.65 Type 2 diabetes mellitus with hyperglycemia
CPT/HCPCS: 36415; 80053; 80061; 81000; 83036; 84443; 85027

== ENCOUNTER → 2022-08-14 | Outpatient (CLI) | payer BC ==
[2022-08-14 10:46] LABS: BASOPHILS % (AUTO) 1 % (0-10); EOSINOPHILS # (AUTO) 0.4 10^3/uL (0.0-0.3); EOSINOPHILS % (AUTO) 5 % (0-10); HEMATOCRIT 43 % (40-54); HEMOGLOBIN 13.6 g/dL (13.3-17.7); LYMPHOCYTES # (AUTO) 1.4 10^3/uL (1.0-4.0); LYMPHOCYTES % (AUTO) 18 % (12-44); MEAN CORPUSCULAR HEMOGLOBIN 27 pg (25-34); MEAN CORPUSCULAR HGB CONC 32 g/dL (32-36); MEAN CORPUSCULAR VOLUME 87 fL (80-99); MEAN PLATELET VOLUME 10.9 fL (9.0-12.2); MONOCYTES # (AUTO) 0.7 10^3/uL (0.0-1.0); MONOCYTES % (AUTO) 9 % (0-12); NEUTROPHILS # (AUTO) 5.1 10^3/uL (1.8-7.8); NEUTROPHILS % (AUTO) 68 % (42-75); PLATELET COUNT 260 10^3/uL (130-400); WHITE BLOOD COUNT 7.6 10^3/uL (4.3-11.0)
[2022-08-14 11:08] LABS: ALBUMIN 3.7 GM/DL (3.2-4.5); BILIRUBIN,TOTAL 0.4 MG/DL (0.1-1.0); CALCIUM 9.2 MG/DL (8.5-10.1); CREATININE SERUM 1.01 MG/DL (0.60-1.30); POTASSIUM 3.5 MMOL/L (3.6-5.0)
== END ==
LOC: LAB 10:23
PROVIDERS: ATTEND Family Medicine
DX: E11.65 Type 2 diabetes mellitus with hyperglycemia (principal); I10 Essential (primary) hypertension
CPT/HCPCS: 36415; 80053; 80061; 83036; 84443; 85025

== ENCOUNTER → 2023-04-03 | Outpatient (CLI) | payer BC ==
[~2023-04-03] MED LIST changes: -MECL-149 PO; +MECL-291 PO
[2023-04-03 10:26] LABS: ALBUMIN 3.5 GM/DL (3.2-4.5); BILIRUBIN,TOTAL 0.4 MG/DL (0.1-1.0); CALCIUM 8.6 MG/DL (8.5-10.1); CREATININE SERUM 0.79 MG/DL (0.60-1.30); POTASSIUM 3.6 MMOL/L (3.6-5.0); TOTAL PROTEIN 6.8 GM/DL (6.4-8.2)
== END ==
LOC: LAB 09:49
PROVIDERS: ATTEND Family Medicine
DX: I10 Essential (primary) hypertension (principal); E78.5 Hyperlipidemia, unspecified; E11.65 Type 2 diabetes mellitus with hyperglycemia
CPT/HCPCS: 36415; 80053; 83036